=== PATIENT | male | born 1960 | race Caucasian/White ===

== ENCOUNTER → 2017-03-10 | Outpatient (CLI) | payer BC ==
[2017-03-10 09:53] LABS: HEMATOCRIT 44.8 % (42-52); MEAN CELL VOLUME 89.2 fL (80-100); MEAN CORPUSCULAR HEMOGLOBIN 30.9 pg (25-34); MEAN CORPUSCULAR HGB CONC 34.6 g/dl (32-36); MEAN PLATELET VOLUME 9.8 fL (7.4-10.4); PLATELET COUNT 249 K/uL (130-400); RED BLOOD COUNT 5.02 M/uL (4.7-6.1); WHITE BLOOD COUNT 7.41 K/uL (4.8-10.8)
[2017-03-10 10:20] LABS: ESTIMATED AVERAGE GLUCOSE 117 mg/dl; HA1C FLAG Normal (Normal)
[2017-03-10 10:21] LABS: ALT/SGPT 33 U/L (12-78); AST/SGOT 14 U/L (15-37); BLOOD UREA NITROGEN 19 mg/dl (7-18); CARBON DIOXIDE 26 mmol/L (21-32); CHLORIDE 105 mmol/L (98-107); CHOLESTEROL 232 mg/dl (0-200); GLUCOSE 115 mg/dl (70-99); SODIUM 138 mmol/L (136-145)
[2017-03-10 10:25] LABS: CHOLESTEROL/HDL RATIO 5.5; HDL CHOLESTEROL 42 mg/dl; LDL CHOLESTEROL CALCULATED 160 mg/dl; TRIGLYCERIDES 151 mg/dl (0-150); VERY LOW DENSITY LIPOPROT CALC 30 mg/dl
== END | disposition home or self-care (01) ==
LOC: C.LAB1850 09:06
PROVIDERS: ATTEND Internal Medicine
DX: E78.5 Hyperlipidemia, unspecified (principal); K21.9 Gastro-esophageal reflux disease without esophagitis

== ENCOUNTER → 2017-06-27 | Outpatient (CLI) | payer BC | END | disposition home or self-care (01) | LOC: C.LABPBG 11:15 | PROVIDERS: ATTEND Nurse Practitioner Adult Health | DX: N39.0 Urinary tract infection, site not specified (principal) ==

== ENCOUNTER → 2017-08-03 | Outpatient (CLI) | payer BC | END | disposition home or self-care (01) | LOC: C.LABPBG 15:32 | PROVIDERS: ATTEND Nurse Practitioner Adult Health | DX: N41.9 Inflammatory disease of prostate, unspecified (principal); N39.0 Urinary tract infection, site not specified ==

== ENCOUNTER → 2017-12-23 | Outpatient (CLI) | payer BC ==
[2017-12-23 12:57] LABS: AST/SGOT 16 U/L (15-37); BLOOD UREA NITROGEN 19 mg/dl (7-18); CALCIUM 9.1 mg/dl (8.5-10.1); CARBON DIOXIDE 27 mmol/L (21-32); CREATININE 1.21 mg/dl (0.60-1.40); GLUCOSE 120 mg/dl (70-99); POTASSIUM 4.2 mmol/L (3.5-5.1); SODIUM 137 mmol/L (136-145)
[2017-12-23 13:03] LABS: ALT/SGPT 31 U/L (12-78); CHOLESTEROL 228 mg/dl (0-200); LDL CHOLESTEROL CALCULATED 149 mg/dl
[2017-12-23 13:10] LABS: HEMOGLOBIN A1C 5.9 % (4.5-5.6)
== END | disposition home or self-care (01) ==
LOC: C.LABPBG 08:45
PROVIDERS: ATTEND Internal Medicine
DX: N40.1 Benign prostatic hyperplasia with lower urinary tract symptoms (principal); R73.9 Hyperglycemia, unspecified; E78.5 Hyperlipidemia, unspecified

== ENCOUNTER 2025-06-17 12:29 | Observation (INO) ==
--- NOTE | 2025-06-17 12:49 | Emergency Department Note ---
Impression & Plan Mass of pancreas, Metastatic cancer, Epigastric abdominal pain ED Provider Note NAME: MEGAN GUTIERREZ AGE: 64 SEX: M : 1960 ARRIVES VIA: Walk-In INFORMANT: Patient, ED PROVIDER(S): Joshua Restrepo DO CHIEF COMPLAINT: Back pain HPI: The patient is a 64-year-old male who presented to the emergency department directly from his primary care's office for an evaluation of back pain. The patient has been having pain for the last 5 weeks. He was seen in our facility recently. It was felt to be secondary to his Ozempic. He stopped the medication 5 weeks ago and thought that his symptoms were resolved by now. He notices middle back pain as well as gas bloating. He denies having any chest pain. He does note shortness of breath with exertion. He does take Xarelto which he takes at night. Is been compliant with his outpatient medications otherwise. He denies having any fever. ROS: See above HPI for pertinent positives & negatives. A total of 10 systems reviewed and were otherwise negative. PAST MEDICAL HISTORY: See Below PAST SURGICAL HISTORY: See Below FAMILY HISTORY: See Below SOCIAL HISTORY: See Below HOME MEDICATIONS: See Below ALLERGIES: See Below VITALS: See Below PHYSICAL EXAMINATION: GENERAL: Patient is awake alert in no acute distress patient is resting comfortably and showing no signs of anxiety EYES: The conjunctivae are clear. The pupils are round and reactive. EARS, NOSE, MOUTH AND THROAT: The nose is without any evidence of any deformity. Mucous membranes are moist. Tongue is midline. NECK: The neck is nontender and supple. RESPIRATORY: Normal respiratory effort is noted there is no evidence of wheezing rhonchi or rales CARDIOVASCULAR: Regular rate and rhythm noted there no murmurs rubs or gallops normal S1 normal S2. GASTROINTESTINAL: The abdomen was soft but mildly distended. There is diffuse tenderness to palpation but no guarding rigidity. BACK: Middle back tenderness was noted to palpation. Range of motion appears intact. There is no step-off. MUSCULOSKELETAL/EXTREMITIES: There is no evidence of gross deformity full range of motion is noted in the hips and shoulders. SKIN: There is no obvious evidence of any rash. There are no petechiae, pallor or cyanosis noted. NEUROLOGIC: Patient is awake alert and oriented x3 MEDICAL DECISION MAKING: The patient is a 64-year-old male who presented to the emergency department at the request of his primary care physician. The patient's been having abdominal pain over the course of the last 5 weeks. This was initially felt to be secondary to the patient's medications. The patient has been waiting for the medicines to clear his system. He was told this would take approximately 5 weeks. The patient went to see his family doctor today. He was told to go to the emergency department as they would be unable to do any testing today without getting precertification. I discussed the patient's laboratory and radiographic studies with him. He was found to have signs of a mass on his pancreas as well as possible metastatic disease. The patient was treated with pain medication in the emergency department. He was reevaluated multiple times. Given his findings I do not feel he would be a good candidate for outpatient management. For this reason I [facility] have agreed to evaluate the patient in the emergency department. Triage Nursing notes reviewed. Prior medical records reviewed Vital Signs: reviewed and remarkable for no significant abnormalities Differential diagnosis: Musculoskeletal, disc herniation, fracture, metastatic disease, cord compression, discitis, sciatica, cauda equina, infection, aortic disease, renal colic, gastrointestinal, as well as other pathologies. ER treatment provided: See below Diagnostics interpreted by me: ECG: EKG was obtained in the emergency department. My interpretation is normal sinus rhythm at 80 bpm. There is no ectopy. Nonspecific ST and T wave abnormalities are noted. This was compared to a tracing from May 13, 2025. No specific changes were noted. Cardiac Monitoring: An order was placed for continuous cardiac monitoring. The monitor shows a rate of 82 bpm with sinus rhythm. Laboratory studies: As stated above and show below. Imaging studies: See below. Radiographic imaging was reviewed by myself Consultation(s): I discussed this case with Sisi who [facility] Past Med/Surg History Problem List (Updated 06/17/25 @ 19:53 by Joshua Restrepo DO) Epigastric abdominal pain (Acute) Metastatic cancer (Acute) Mass of pancreas (Acute) Transaminitis Pancreatic mass Diabetes mellitus Anemia, mild Current use of proton pump inhibitor Morbid (severe) obesity due to excess calories Encounter for pre-operative examination BMI over 35 (Acute) Laryngopharyngeal reflux (Acute) Sleep apnea (Acute) Adjustment disorder Severe obstructive sleep apnea Nocturnal hypoxemia Atrial fibrillation Atrial fibrillation new onset since dx with covid 03/23/22 Benign prostatic hyperplasia with urinary obstruction (Acute) Hyperglycemia (Acute) "borderline" Hyperlipidemia (Acute) "borderline" Medical History History of cardioversion 06/17/[place], [place]; f/u dr ellison, [place]; 07[place], [place] GERD (gastroesophageal reflux disease) ADD (attention deficit disorder) Anxiety and depression History of COVID-19 03/23/22>home test *a-fib occured Sleep apnea cpap used Surgical History History of cardiac radiofrequency ablation 09/2022, [facility] [place]; f/u Dr. Castro, [facility] History of tooth extraction Hx of LASIK Hx of cholecystectomy H/O hernia repair Family History Brother History of kidney cancer Unknown Diabetes Hypertension Father Stroke Mother Stroke Other No family history of adverse response to anesthesia Denies family history of Colon cancer Ovarian cancer Prostate cancer Myocardial infarction Breast cancer Social History Smoking Status: Never smoker Second Hand Exposure: Yes (HX CHILD); Do You Dip or Chew Tobacco: No; Hx Alcohol Use: Yes Alcohol type: beer, wine and hard liquor Hx Substance Use: No Preferred Language: Georgian Communication Ability: Effective Visual Impairment: No Limitations Hearing Ability: Normal Cutter Brake Lining Required: No Beliefs That Will Affect Care: None marital status: Current Living Situation: Spouse current occupational status: employed 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 Feels Safe at Home: Yes Childhood Exposure to Second-Hand Smoke: Yes Dental Care, Regularly: Yes Physical Activity Frequency: 1-2 Times per Week Seatbelt Use: always Sunscreen Use: Yes Assistive Devices: CPAP and Glasses Allergies Allergies Allergy/AdvReac Type Severity Reaction Status Date / Time No Known Drug Allergies Allergy Verified 06/17/25 11:34 Home Meds Home Medications Medication Instructions Recorded Confirmed vit 2 tab PO QAM 02/27/21 06/17/25 [id number] 500 mg-50 mg-25 mg-40 mg tablet (Bioflex) Previous Rx's Medication Instructions Recorded escitalopram oxalate 10 mg tablet 10 mg PO QAM #90 tabs 09/04/24 finasteride 5 mg tablet 5 mg PO DAILY #90 tabs 09/05/24 metoprolol succinate 25 mg 25 mg PO QAM #90 tabs 09/05/24 tablet,extended release 24 hr rivaroxaban 20 mg tablet (Xarelto) 20 mg PO QPM #90 tabs 09/25/24 esomeprazole magnesium 20 mg 20 mg PO BID #180 caps 01/30/25 capsule,delayed release dronedarone 400 mg tablet (Multaq) 400 mg PO BID #180 tabs 03/18/25 famotidine 40 mg tablet 40 mg PO QAM #90 tabs 03/20/25 Results & Data (ED) Vital Signs Vital Signs - 24 hr 06/17/25 12:33 06/17/25 12:43 06/17/25 13:04 Temperature 36.7 C Temperature Source Temporal Artery Scan Pulse Rate 83 72 Pulse Rate [Apical] Respiratory Rate 22 16 Respiratory Effort / Characteristics Respiratory Depth Respiratory Pattern Blood Pressure 134/78 Blood Pressure [Right Arm] Blood Pressure Mean 96 Blood Pressure Mean [Right Arm] Pulse Oximetry 96 98 98 Oxygen Delivery Method Room Air Room Air Room Air Oxygen Flow Rate Sepsis Recent Fever Within 48 Hours No Sepsis New/Unexplained Change in Mental Status N/A Sepsis Action Taken by Nursing No Action Required Oxygen Flow Rate - Titration Pulse Oximetry Post Tiitration 06/17/25 13:13 06/17/25 13:57 06/17/25 14:47 Temperature Temperature Source Pulse Rate 70 Pulse Rate [Apical] 73 Respiratory Rate 18 Respiratory Effort / Characteristics Non-Labored Spontaneous Respiratory Depth Normal Respiratory Pattern Regular Blood Pressure Blood Pressure [Right Arm] 126/76 Blood Pressure Mean Blood Pressure Mean [Right Arm] 92 Pulse Oximetry 88 L 94 Oxygen Delivery Method Room Air Nasal Cannula Room Air Oxygen Flow Rate 0 Sepsis Recent Fever Within 48 Hours Sepsis New/Unexplained Change in Mental Status Sepsis Action Taken by Nursing Oxygen Flow Rate - Titration 2 Pulse Oximetry Post Tiitration 94 Home Medications Current Medication List: was personally reviewed by me Laboratory Data Attestation: I reviewed the patient's lab results. 06/17/25 12:58 06/17/25 12:58 Lab Results 09/29/25 09/29/25 Range/Units 12:58 13:02 WBC 11.00 H (4.8-10.8) K/ul RBC 4.40 L (4.70-6.10) M/uL Hgb 13.0 L (14.0-18.0) g/dl POC Hgb 13.9 L (14.0-18.0) g/dl Hct 37.8 L (42.0-52.0) % POC Hct 41 L (42-52) % MCV 85.9 (80.0-100.0) fL MCH 29.5 (25.0-34.0) pg MCHC 34.4 (32.0-36.0) g/dL RDW Std Deviation 43.5 (36.4-46.3) fL RDW Coeff of Cruzito 13.9 (11.5-14.5) % Plt Count 312 (130-400) K/uL MPV 10.6 (9.4-12.4) fL Immature Gran % (Auto) 0.3 % Neut % (Auto) 55.4 % Lymph % (Auto) 23.8 % [place] % (Auto) 14.1 % Eos % (Auto) 5.5 % Baso % (Auto) 0.9 % Neut # (Auto) 6.09 (1.40-6.50) K/uL Lymph # (Auto) 2.62 (1.20-3.40) K/uL Sol[place] # (Auto) 1.55 H (0.11-0.59) K/uL Eos # (Auto) 0.61 H (0.00-0.50) K/uL Baso # (Auto) 0.10 (0.00-0.20) K/uL Immature Gran # (Auto) 0.03 (0.01-0.20) K/uL PT 14.9 H (9.0-12.0) Seconds INR 1.4 H (0.9-1.1) APTT 31 (21-31) Seconds PTT Ratio 1.1 POC Sodium 131 L (135-144) mmol/L Sodium 129 L (136-145) mmol/L POC Potassium 3.5 (3.3-5.0) mmol/L Potassium 3.6 (3.5-5.1) mmol/L POC Chloride 93 L (101-112) mmol/L Chloride 93 L (98-107) mmol/L Carbon Dioxide 26 (21-32) mmol/L POC Total CO2 25 (24-31) mmol/L Anion Gap 10 (3-11) POC Anion Gap 17.0 (16-25) mmol/L POC BUN 6 L (7-18) mg/dl BUN 8 (6-23) mg/dl Creatinine 0.65 (0.6-1.4) mg/dl POC Creatinine 0.7 (0.6-1.3) mg/dl Est Cr Clr Drug Dosing 165.8 ml/min eGFR 104.57 BUN/Creatinine Ratio 12.3 (10-20) Glucose 284 H (70-99(Fasting)) mg/dl POC Glucose (other) 293 H (70-99) mg/dl Calcium 9.2 (8.6-10.3) mg/dl POC Ioniz Calcium Eduardo 1.09 L (1.12-1.32) mmol/l Total Bilirubin 3.0 H (0.2-1.0) mg/dl Direct Bilirubin 1.7 H (0-0.2) mg/dl AST 78 H (13-39) U/L ALT 113 H (7-52) U/L Alkaline Phosphatase 473 H (34-104) U/L Troponin I High Sens 22.9 H (0-20) pg/ml Total Protein 7.6 (6.0-8.3) gm/dl Albumin 3.2 L (3.4-5.0) gm/dl Globulin 4.4 H (2.5-4.0) gm/dl Albumin/Globulin Ratio 0.7 L (0.9-2) Lipase 17 (11-82) U/L Administered Medications Discontinued Medications Sodium Chloride (Nss) 500 mls @ 999 mls/hr IV .Q31M STA Stop: 06/17/25 13:13 Last Infusion: 06/17/25 13:47 Dose: Infused Documented By: Admin: 06/17/25 13:00 Dose: 999 mls/hr Documented By: GRETA Ioversol (Optiray 320 125ml) 118 ml IV ONCE ONE Stop: 06/17/25 14:27 Last Admin: 06/17/25 14:26 Dose: 118 ml Documented By: RAQUEL Morphine Sulfate (Morphine Sulfate 4 Mg/Ml 1 Ml Carp\\Vial) 4 mg IV Q15M PRN PRN Reason: Pain Stop: 07/01/25 12:42 Last Admin: 06/17/25 15:44 Dose: 4 mg Documented By: Admin: 06/17/25 13:20 Dose: 4 mg Documented By: GRETA Ondansetron HCl (Ondansetron Inj 2 Mg/Ml 2 Ml Vial) 4 mg IV NOW STA Stop: 06/17/25 12:44 Last Admin: 06/17/25 12:59 Dose: 4 mg Documented By: GRETA Imaging Data Attestation: I personally reviewed and interpreted this imaging study as follows: My Impression: CT of the abdomen and pelvis was obtained in the emergency department. My interpretation is no free air or definite bowel obstruction, final report below. Radiologist's Impression: Abdomen/Pelvis CT 06/17/25 12:43 CT angio chest PE protocol, CT abd pelvis IV con only CT DOSE: 2428.37 mGy.cm HISTORY: 64 years-old Male with PE. Acute short of breath with chest and abdominal pain TECHNIQUE: Multiple CTA images of the chest were obtained after the intravenous administration of 118 ml Optiray. Coronal and sagittal MIPS were obtained from the axial data set and were submitted for review. All measurements were obtained according to NASCET criteria. CT Abdomen and pelvis with IV contrast only also obtained. A dose lowering technique was utilized adhering to the principles of ALARA. COMPARISON: None. FINDINGS: CTA: No central pulmonary emboli are seen. Heart size is normal. Moderate coronary artery calcifications. No pulmonary emboli are seen. CT CHEST: Unremarkable thyroid. Subcentimeter mediastinal and right hilar lymph nodes. No pathologically enlarged lymph nodes are seen. Trace right pleural effusion. No pneumothorax. Irregular bilateral scattered solid pulmonary nodules measure up to approximately 2 cm from the right upper lobe. Several of the nodules are seen within a perifissural distribution. Central airways are patent. Pleural-based nodule the basal right lower lobe on image 60 measures 3.3 cm. Smaller subcentimeter pleural-based nodules are present bilaterally. A subcentimeter epicardial lymph node is seen on image 67. Unremarkable soft tissues. No acute fracture or destructive bone lesion is seen. CT ABDOMEN/PELVIS: No pneumatosis or pneumoperitoneum identified. Unremarkable spleen, and adrenal glands. Cholecystectomy. Scattered ill-defined hypodense liver lesions measuring up to 4.3 cm. Trace perihepatic fluid/hemorrhage on image 164 series 6 (likely secondary to one of the metastatic lesions demonstrating internal hemorrhage). Patent portal vein. Occlusion of the splenic vein. Periportal lymph nodes measure up to 1.3 cm. There is a large infiltrative ill-defined hypodense mass involving the pancreatic body on image 162 series 6 which measures 7.5 x 5.1 x 5.4 cm on image 162 series 6. This abuts the lesser curvature of the stomach and adjacent left hepatic lobe. There is also partial encasement of the splenic artery. This mass does not involve the superior mesenteric artery. No biliary ductal dilation to Unremarkable kidneys without hydronephrosis. Urinary bladder is within normal limits. Atherosclerosis of the aorta. No bowel obstruction or bowel wall thickening. Colonic diverticulosis without acute diverticulitis. No CT evidence of acute appendicitis. Unremarkable soft tissues. No acute fracture or destructive bone lesion identified. IMPRESSION: 1. 7.5 cm pancreatic mass suggestive of primary pancreatic adenocarcinoma with involvement of adjacent structures as above. 2. Metastatic disease of the chest and abdomen includes pulmonary, pleural, hepatic and lymphatic metastasis with trace likely malignant right-sided pleural effusion. 3. No pulmonary emboli. 4. No bowel obstruction or bowel wall thickening. 5. Colonic diverticulosis. ACT 112: Positive. There are findings on this exam that require communication between the performing entity and the patient following Patient Test Result Information Act ([place] Act 112) guidelines. The above report was generated using voice recognition software. It may contain grammatical, syntax or spelling errors. Electronically signed by: Angel Mcguire M.D. 06/17/2025 3:00 PM Chest X-Ray 06/17/25 12:43 XR chest 1V portable CLINICAL HISTORY: back pain COMPARISON STUDY: 05/13/2025 FINDINGS: Heart size and pulmonary vasculature are normal. No consolidation or pleural effusion. No pneumothorax. IMPRESSION: No acute findings. ACT 112: Negative or not required by law. Electronically signed by: Alex García M.D. 06/17/2025 1:11 PM Chest CTA 06/17/25 12:46 CT angio chest PE protocol, CT abd pelvis IV con only CT DOSE: 2428.37 mGy.cm HISTORY: 64 years-old Male with PE. Acute short of breath with chest and abdominal pain TECHNIQUE: Multiple CTA images of the chest were obtained after the intravenous administration of 118 ml Optiray. Coronal and sagittal MIPS were obtained from the axial data set and were submitted for review. All measurements were obtained according to NASCET criteria. CT Abdomen and pelvis with IV contrast only also obtained. A dose lowering technique was utilized adhering to the principles of ALARA. COMPARISON: None. FINDINGS: CTA: No central pulmonary emboli are seen. Heart size is normal. Moderate coronary artery calcifications. No pulmonary emboli are seen. CT CHEST: Unremarkable thyroid. Subcentimeter mediastinal and right hilar lymph nodes. No pathologically enlarged lymph nodes are seen. Trace right pleural effusion. No pneumothorax. Irregular bilateral scattered solid pulmonary nodules measure up to approximately 2 cm from the right upper lobe. Several of the nodules are seen within a perifissural distribution. Central airways are patent. Pleural-based nodule the basal right lower lobe on image 60 measures 3.3 cm. Smaller subcentimeter pleural-based nodules are present bilaterally. A subcentimeter epicardial lymph node is seen on image 67. Unremarkable soft tissues. No acute fracture or destructive bone lesion is seen. CT ABDOMEN/PELVIS: No pneumatosis or pneumoperitoneum identified. Unremarkable spleen, and adrenal glands. Cholecystectomy. Scattered ill-defined hypodense liver lesions measuring up to 4.3 cm. Trace perihepatic fluid/hemorrhage on image 164 series 6 (likely secondary to one of the metastatic lesions demonstrating internal hemorrhage). Patent portal vein. Occlusion of the splenic vein. Periportal lymph nodes measure up to 1.3 cm. There is a large infiltrative ill-defined hypodense mass involving the pancreatic body on image 162 series 6 which measures 7.5 x 5.1 x 5.4 cm on image 162 series 6. This abuts the lesser curvature of the stomach and adjacent left hepatic lobe. There is also partial encasement of the splenic artery. This mass does not involve the superior mesenteric artery. No biliary ductal dilation to Unremarkable kidneys without hydronephrosis. Urinary bladder is within normal limits. Atherosclerosis of the aorta. No bowel obstruction or bowel wall thickening. Colonic diverticulosis without acute diverticulitis. No CT evidence of acute appendicitis. Unremarkable soft tissues. No acute fracture or destructive bone lesion identified. IMPRESSION: 1. 7.5 cm pancreatic mass suggestive of primary pancreatic adenocarcinoma with involvement of adjacent structures as above. 2. Metastatic disease of the chest and abdomen includes pulmonary, pleural, hepatic and lymphatic metastasis with trace likely malignant right-sided pleural effusion. 3. No pulmonary emboli. 4. No bowel obstruction or bowel wall thickening. 5. Colonic diverticulosis. ACT 112: Positive. There are findings on this exam that require communication between the performing entity and the patient following Patient Test Result Information Act ([place] Act 112) guidelines. The above report was generated using voice recognition software. It may contain grammatical, syntax or spelling errors. Electronically signed by: Angel Mcguire M.D. 06/17/2025 3:00 PM Discharge Plan Visit Data Chief Complaint: Abdominal Pain Stated Complaint: OZEMPIC REACTION REACTION BACK PAIN ED Provider: Joshua Restrepo Discharge Problem: Mass of pancreas, Metastatic cancer, Epigastric abdominal pain Patient Disposition: Admitted As Inpatient Condition: Fair Discharge Instructions Interventions: ED Discharge Assessment Last Done: 06/17/25 18:06
[2025-06-17] MEDS: ONDANSETRON INJ 2 MG/ML 2 ML VIAL IV STA (12:59)
[2025-06-17] MEDS: SODIUM CHLORIDE 0.9% 500 ML IV STA (13:00)
--- NOTE | 2025-06-17 13:12 | XRay Report ---
XR chest 1V portable CLINICAL HISTORY: back pain COMPARISON STUDY: 05/13/2025 FINDINGS: Heart size and pulmonary vasculature are normal. No consolidation or pleural effusion. No p neumothorax. IMPRESSION: No acute findings. ACT 112: Negative or not required by law. Electronically signed by: Alex García M.D. 06/17/2025 1:11 PM
[2025-06-17] MEDS: MoRPHine SULFATE 4 MG/ML 1 ML CARP\\VIAL IV PRN ×2 (13:20→20:11)
[2025-06-17 13:32] LABS: Hematocrit (blood only) 37.8 % (42.0-52.0); Hemoglobin 13.0 g/dl (14.0-18.0); Immature Granulocytes # (auto) 0.03 K/uL (0.01-0.20); Immature Granulocytes % (auto) 0.3 %; Mean Corpuscular Hemoglobin 29.5 pg (25.0-34.0); Mean Corpuscular Volume 85.9 fL (80.0-100.0); Platelet Count 312 K/uL (130-400); RDW Standard Deviation 43.5 fL (36.4-46.3); Red Blood Count 4.40 M/uL (4.70-6.10); White Blood Count 11.00 K/ul (4.8-10.8)
[2025-06-17 13:33] LABS: Alanine Aminotransferase 113.0 U/L (7-52); Albumin Globulin Ratio 0.7 (0.9-2); Albumin Level 3.2 gm/dl (3.4-5.0); Alkaline Phosphatase 473.0 U/L (34-104); Anion Gap 10.0 (3-11); Bilirubin,Total 3.0 mg/dl (0.2-1.0); Blood Urea Nitrogen 8.0 mg/dl (6-23); Calcium 9.2 mg/dl (8.6-10.3); Carbon Dioxide 26.0 mmol/L (21-32); Chloride 93.0 mmol/L (98-107); Creatinine Clr Calc Pharmacy 165.8 ml/min; Globulin 4.4 gm/dl (2.5-4.0); Glucose 284.0 mg/dl (70-99(Fasting)); Lipase 17.0 U/L (11-82); Potassium 3.6 mmol/L (3.5-5.1); Sodium 129.0 mmol/L (136-145); Total Protein 7.6 gm/dl (6.0-8.3)
[2025-06-17 13:42] LABS: INR 1.4 (0.9-1.1); Partial Thromboplastin Time 31 Seconds (21-31); Prothrombin Time 14.9 Seconds (9.0-12.0)
[2025-06-17] MEDS: OPTIRAY 320 125ml IV ONE (14:26)
--- NOTE | 2025-06-17 15:01 | CT Scan Report ---
CT angio chest PE protocol, CT abd pelvis IV con only CT DOSE: 2428.37 mGy.cm HISTORY: 64 years-old Male with PE. Acute short of breath with chest and abdominal pain TECHNIQUE: Multiple CTA images of the chest were obtained after the intravenous administration of 118 ml Optiray. Coronal and sagittal MIPS were obtained from the axial data set and were submitted for review. All measurements were obtained according to NASCET criteria. CT Abdomen and pelvis with IV c ontrast only also obtained. A dose lowering technique was utilized adhering to the principles of POLA Grissom. COMPARISON: None. FINDINGS: CTA: No central pulmonary emboli are seen. Heart size is normal. Moderate coronary artery calcifications. No pulmonary emboli are seen. CT CHEST: Unremarkable thyroid. Subcentimeter mediastinal and right hilar lymph nodes. No pathologically enlarg ed lymph nodes are seen. Trace right pleural effusion. No pneumothorax. Irregular bilateral scattered solid pulmonary nodules measure up to approximately 2 cm from the right upper lobe. Several of the n odules are seen within a perifissural distribution. Central airways are patent. Pleural-based nodule the basal right lower lobe on image 60 measures 3.3 cm. Smaller subcentimeter pleural-based nodules a re present bilaterally. A subcentimeter epicardial lymph node is seen on image 67. Unremarkable soft tissues. No acute fracture or destructive bone lesion is seen. CT ABDOMEN/PELVIS: No pneumatosis or pneumoperitoneum identified. Unremarkable spleen, and adrenal glands. Cholecystecto my. Scattered ill-defined hypodense liver lesions measuring up to 4.3 cm. Trace perihepatic fluid/hem orrhage on image 164 series 6 (likely secondary to one of the metastatic lesions demonstrating human resource internship al hemorrhage). Patent portal vein. Occlusion of the splenic vein. Periportal lymph nodes measure up to 1.3 cm. There is a large infiltrative ill-defined hypodense mass involving the pancreatic body on image 162 series 6 which measures 7.5 x 5.1 x 5.4 cm on image 162 series 6. This abuts the lesser cur vature of the stomach and adjacent left hepatic lobe. There is also partial encasement of the splenic artery. This mass does not involve the superior mesenteric artery. No biliary ductal dilation to Unremarkable kidneys without hydronephrosis. Urinary bladder is within normal limits. Atherosclerosis of the aorta. No bowel obstruction or bowel wall thickening. Colonic diverticulosis without acute di verticulitis. No CT evidence of acute appendicitis. Unremarkable soft tissues. No acute fracture or d estructive bone lesion identified. IMPRESSION: 1. 7.5 cm pancreatic mass suggestive of primary pancreatic adenocarcinoma with involvement of adjacen t structures as above. 2. Metastatic disease of the chest and abdomen includes pulmonary, pleural, hepatic and lymphatic met astasis with trace likely malignant right-sided pleural effusion. 3. No pulmonary emboli. 4. No bowel obstruction or bowel wall thickening. 5. Colonic diverticulosis. ACT 112: Positive. There are findings on this exam that require communication between the performing entity and the patient following Patient Test Result Information Act ([place] Act 112) guidelines. The above report was generated using voice recognition software. It may contain grammatical, syntax o r spelling errors. Electronically signed by: Angel Mcguire M.D. 06/17/2025 3:00 PM
[2025-06-17] MEDS ORDERED: MoRPHine SULFATE 2 MG/ML CARP IV PRN (16:02)
--- NOTE | 2025-06-17 16:09 | History & Physical Report ---
Date of Service June 17, 2025 Assessment & Plan (1) Pancreatic mass: (2) Transaminitis: (3) GERD (gastroesophageal reflux disease): (4) Atrial fibrillation: Plan This is a 64 year old gentleman with past medical history of A fib, BPH, mild anemia, DM who presented to the ED recommended by his PCP on 06/17/2025 for back pain. While in the ED he underwent a chest CTA and CTAP that was concerning for a 7.5cm pancreatic mass suggestive of primary adenocarcinoma w/ metastatic disease including pulmonary, plerual, hepatic, and lymphatic mets w/ trace likely malignant right-sided pleural effusion. No PE. CXR was negative. CBC w/ WBC mildly elevated at 11, hgb mildly low at 13. INR elevated at 1.4. CMP w/ Na of 129, TB 3.0, DB 1.7, AST/ALT 78/113, AP 473. Trop mildly elevated at 22.9. APAP level pending. #Pancreatic Mass CTAP/Chest CTA w/ 7.3cm pancreatic mass suggestive of primary adenocarcinoma w/ metastatic disease including pulmonary, pleural, hepatic & lymphatic mets w/ trace likely malignant right sided pleural effusion. CBC w/ mild leukocytosis of 11, will trend. Hgb mildly low at 13. Per chart review does have hx of mild anemia, will monitor. Transaminitis secondary to mass - TB 3.0, DB 1.7, AST/ALT 78/113; AP 473 (previously LFTs 04/2025 did appear normal aside from a slightly elevated AP at 126) Discussed w/ IR via tiger text that bx of Liver can be performed here but will require 3 day Xarelto hold. Last dose was 06/16 PM. Earliest biopsy can be done: 05/22. Pain control w/ Morphine 2mg vs 4mg dependent upon pain scale. APAP level checked given he was taking a large amount at home - await levels. Oncology consulted, appreciate recommendations. Zofran prn for N/V. #Constipation w/ irregular BM's since starting Ozempic. Hypoactive BS on examination. Start Miralax once daily in AM, can increase as needed. #Hyponatremia Na low at 129 at time of admission. Provide gentle fluid rehydration Recheck in AM - suspect secondary to poor PO intake. #Elevated troponin Mildly elevated at 22.9, likely secondary from demand of panc mass Repeat pending EKG w/o signs of ischemia; endorses no CP. #A fib - Continue on Metoprolol & Dronedarone, follows outpatient w/ cards. HOLD Xarelto for upcoming liver biopsy #GERD - Continue PPI + Pepcid #BPH - Continue Finasteride DVT prophylaxis: hold in setting of upcoming bx Code: full Case discussed w/ Dr. Landers at time of encounter. History of Present Illness Primary Care Provider: Joshua Espino MD This is a 64 year old gentleman with past medical history of A fib, BPH, mild anemia, DM who presented to the ED recommended by his PCP on 06/17/2025 for back pain. Sal was seen & examined this afternoon. He reports that he has been having ongoing back pain for months but has also developed abdominal bloat ing/distention, n/v, and decreased appetite. His GI symptoms began after starting Ozempic but did not resolve when stopping the medication. He reports he has been off the medication for a few weeks now with no relief. He reports little sleep at night secondary to his GI symptoms + back pain. He went to his PCP today who referred him to the ED for further care. He reports shortness of breath with activity which is a newer symptom for him. He denies any CP. Denies any lower extremity edema. He states he has been defecating up to 25 times a day because every time he feels he passes gas he will pass some stool. He reports occasionally he will have diarrhea and other times he will have stools like a type 1 on the bristol stool chart. He reports feeling nauseous and has vomited a few times. He reports that last August his weight was in the 380s. When starting Ozempic it was in the 340s and is now down to about 307. He denies any fevers or chills. He does report that he has been using Tylenol for pain. He states he has been using 2 extra strength tablets every 4-6 hours to help with pain but it is not effective. He did report the morphine did help his pain at time of presentation. While in the ED he underwent a chest CTA and CTAP that was concerning for a 7.5cm pancreatic mass suggestive of primary adenocarcinoma w/ metastatic disease including pulmonary, plerual, hepatic, and lymphatic mets w/ trace likely malignant right-sided pleural effusion. No PE. CXR was negative. CBC w/ WBC mildly elevated at 11, hgb mildly low at 13. INR elevated at 1.4. CMP w/ Na of 129, TB 3.0, DB 1.7, AST/ALT 78/113, AP 473. Trop mildly elevated at 22.9. APAP level pending. Code discussion did take place with the patient & he wishes to stay a full code until he has a conversation with his . Allergies Allergy/AdvReac Type Severity Reaction Status Date / Time No Known Drug Allergies Allergy Verified 06/17/25 11:34 Home Medications Medication Instructions Recorded Confirmed Type vit 2 tab PO QAM 02/27/21 06/17/25 History [id number] 500 mg-50 mg-25 mg-40 mg tablet (Bioflex) escitalopram oxalate 10 mg tablet 10 mg PO QAM #90 tabs 09/04/24 06/17/25 Rx finasteride 5 mg tablet 5 mg PO DAILY #90 tabs 09/05/24 06/17/25 Rx metoprolol succinate 25 mg 25 mg PO QAM #90 tabs 09/05/24 06/17/25 Rx tablet,extended release 24 hr rivaroxaban 20 mg tablet (Xarelto) 20 mg PO QPM #90 tabs 09/25/24 06/17/25 Rx esomeprazole magnesium 20 mg 20 mg PO BID #180 caps 01/30/25 06/17/25 Rx capsule,delayed release dronedarone 400 mg tablet (Multaq) 400 mg PO BID #180 tabs 03/18/25 06/17/25 Rx famotidine 40 mg tablet 40 mg PO QAM #90 tabs 03/20/25 06/17/25 Rx fentanyl 25 mcg/hr transdermal 1 patch transdermal Q3D #5 ea 06/25/25 Rx patch oxycodone 5 mg tablet 5 mg PO Q6H PRN pain #45 tabs 06/25/25 Rx polyethylene glycol 3350 17 gram 17 g PO BID #30 ea 06/25/25 Rx oral powder packet (Miralax) sennosides 8.6 mg tablet (Senna 8.6 mg PO HS #30 tabs 06/25/25 Rx Lax) Past Med/Surg History Problem List Counseling regarding advanced directives and goals of care Palliative care by specialist Cancer-related breakthrough pain Cancer related pain Epigastric abdominal pain (Acute) Metastatic cancer (Acute) Transaminitis Pancreatic mass Diabetes mellitus Anemia, mild Current use of proton pump inhibitor Encounter for pre-operative examination BMI over 35 (Acute) Laryngopharyngeal reflux (Acute) Adjustment disorder Severe obstructive sleep apnea Nocturnal hypoxemia Atrial fibrillation new onset since dx with covid 03/23/22 Benign prostatic hyperplasia with urinary obstruction (Acute) Hyperglycemia (Acute) "borderline" Hyperlipidemia (Acute) "borderline" Medical History Atrial fibrillation Sleep apnea Morbid (severe) obesity due to excess calories Mass of pancreas History of cardioversion 06/17/22, or; f/u dr ellison, or; 07/2022, or GERD (gastroesophageal reflux disease) ADD (attention deficit disorder) Anxiety and depression History of COVID-19 03/23/22>home test *a-fib occured Sleep apnea cpap used Surgical History History of cardiac radiofrequency ablation 09/2022, [facility] [place]; f/u Dr. Castro, [place] History of tooth extraction Hx of LASIK Hx of cholecystectomy H/O hernia repair Family History Brother History of kidney cancer Unknown Diabetes Hypertension Father Stroke Mother Stroke Other No family history of adverse response to anesthesia Denies family history of Colon cancer Ovarian cancer Prostate cancer Myocardial infarction Breast cancer Social History Smoking Status: Never smoker Second Hand Exposure: Yes (HX CHILD); Do You Dip or Chew Tobacco: No; Hx Alcohol Use: Yes Alcohol type: hard liquor Hx Substance Use: No Preferred Language: Latvian Communication Ability: Effective Visual Impairment: No Limitations Hearing Ability: Normal Mold Chipper Required: No Beliefs That Will Affect Care: Nondenominational Nondenominational Beliefs: nixon hickey marital status: Current Living Situation: Spouse 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 Tenderness to palpation in upper abdominal quadrants. Extremities: no edema Neuro: A&O x3 Skin: intact, no lesions noted, mild jaundice. Results & Data Results & Data Vital Signs (Past 12 Hours) Vital Signs Temp Pulse Pulse Resp BP BP Pulse Ox 06/17/25 14:47 73 18 126/76 94 06/17/25 13:57 88 L 06/17/25 13:13 70 06/17/25 13:04 98 06/17/25 12:43 72 16 98 06/17/25 12:33 36.7 C 83 22 134/78 96 O2 Del Method O2 Flow Rate 06/17/25 14:47 Room Air 06/17/25 13:57 Room Air, Nasal Cannula 0 06/17/25 13:13 06/17/25 13:04 Room Air 06/17/25 12:43 Room Air 06/17/25 12:33 Room Air Supervising Physician Co-Signing Physician Notes Attending Attestation & Admission Note: Pt seen/examined, chart reviewed, admit care plan d/w PASCUAL Ambriz. I agree w/ the medellin components of her admission documentation. 64yo male with history of paroxysmal A fib, BPH, anemia, T2DM, obesity. Presented to the ED upon recommendation by his PCP for worsening/intractable back pain for several months, multiple GI symptoms (bloating, nausea, vomiting, poor appetite, fluctuating bowel habits), as well as weight loss. Patient thought his symptoms were due to use of Ozempic however his symptoms persisted even after discontinuation of the medicine. In the ER he underwent mustafa-CT scans showing a large pancreatic mass as well as presumed metastatic disease to numerous locations (lungs, liver, lymph nodes, etc). PMH/PSH/allergies/meds/sochx - reviewed VSS, afebrile gen - lying in bed, pleasant, more comfortable following recent pain medicines; obese neck - no JVD heart - RRR, s1 s2, no murmur lungs - CTA b/l abd - mildly tender RUQ/epigastric region, BS+, no HSM ext - no edema, pulses 2+ b/l labs reviewed imaging reviewed EKG with NSR A/P: 1. intractable back pain of several months duration - likely due to pancreatic mass with extensive metastatic disease 2. pancreatic mass - very likely advanced pancreatic ca with mets 3. various GI symptoms - due to the pancreatic mass/presumed pancreatic ca 4. weight loss due to #2 5. T2DM - last a1c 6.9% in February 2025 6. PAF on Xarelto 7. abnormal LFTs - 2nd to #2 -patient will need tissue biopsy for definitive diagnosis -most readily accessible lesion may be one of the liver mets -could be done via IR -will have to hold Xarelto, however, minimum of 3 days -while awaiting Xarelto to wash out will focus on pain control -start with IV pain meds prn, but suspect he will need a long-acting pain med such as fentanyl patch, MS-contin, etc due to the severity of his pain -will need heme/onc consult, IR consult, +/- palliative care consultation to discuss goals of care in setting of presumed stage 4 pancreatic ca Saul Landers MD PG Care Time/CCT Total # of Minutes Spent Total Time Spent with Patient: Total time spent is greater than 50% in coordination of care (as documented) at patient's floor/unit and/or counseling patient: Coding Level of Care Code 95756 INT INP/OBS CARE 3/75MIN Diagnoses Pancreatic mass K86.89 Transaminitis R74.01 GERD (gastroesophageal reflux disease) K21.9 Atrial fibrillation I48.91
--- NOTE | 2025-06-17 16:52 | Electrocardiogram Report ---
Test Reason : Blood Pressure : */* mmHG Vent. Rate : 80 BPM Atrial Rate : 80 BPM P-R Int : 190 ms QRS Dur : 76 ms QT Int : 370 ms P-R-T Axes : -29 -11 176 degrees QTcB Int : 426 ms Normal sinus rhythm possible Inferior infarct , age undetermined Abnormal ECG When compared with ECG of 13-May-2025 12:50, Inverted T waves have replaced nonspecific T wave abnormality in Lateral leads Confirmed by Floyd Rosenthal ([id number] on 06/17/2025 4:52:22 PM Referred By: Joshua Espino Confirmed By: Floyd Rosenthal
[2025-06-17] MEDS: LACTATED RINGER'S 1,000 ML IV SCH (20:11)
[2025-06-17] MEDS: DRONEDARONE HCL 400 MG TAB PO SCH (20:38)
[2025-06-18 06:12] LABS: Appearance Urine Clear (Clear); Bacteria Urine Automated None Seen (None Seen); Glucose Urine UA Negative (Negative); WBC Urine Automated 0-5 /hpf (0-5)
--- NOTE | 2025-06-18 08:11 | Oncology Consultation ---
Date of Consultation June 18, 2025 Assessment & Plan (1) Mass of pancreas: Plan -Agree with IR guided liver biopsy as soon as possible. Explained to patient that if biopsy confirms metastatic pancreatic cancer, goals of treatment would be to prolong life and improve symptoms. Options include supportive care/hospice, systemic therapy with FOLFIRINOX or NALIRIFOX or gemcitabine/Abraxane. Immunotherapy may be an option if he is mismatch repair deficient. Could also explore option of clinical trial at tertiary center. Will however await biopsy results. -Patient's brother also had pancreatic cancer, so could have germline mutation and so would recommend genetic testing which can be obtained outpatient. -CA 19-9 ordered. History of Present Illness Reason for Consultation: Pancreatic mass with metastasis Attending Physician: Saul Landers MD History of Present Illness Mr. Chand is a 64-year-old gentleman with medical history significant for atrial fibrillation and diabetes who was admitted to with back pain. CT chest, abdomen and pelvis on 06/17/2025 showed 7.5 cm pancreatic mass suggestive of primary pancreatic adenocarcinoma, metastatic disease of the chest and abdomen including pulmonary, pleural, hepatic and lymphatic metastasis with trace likely malignant right-sided pleural effusion.Plan is for IR guided liver biopsy after patient has been off Eliquis for 72 hours. He states that symptoms started several weeks ago and was initially attributed t o Ozempic. Allergies Allergy/AdvReac Type Severity Reaction Status Date / Time No Known Drug Allergies Allergy Verified 06/17/25 11:34 Home Medications Medication Instructions Recorded Confirmed Type vit 2 tab PO QAM 02/27/21 06/17/25 History Q-yoxddec-[id number] 500 mg-50 mg-25 mg-40 mg tablet (Bioflex) escitalopram oxalate 10 mg tablet 10 mg PO QAM #90 tabs 09/04/24 06/17/25 Rx finasteride 5 mg tablet 5 mg PO DAILY #90 tabs 09/05/24 06/17/25 Rx metoprolol succinate 25 mg 25 mg PO QAM #90 tabs 09/05/24 06/17/25 Rx tablet,extended release 24 hr rivaroxaban 20 mg tablet (Xarelto) 20 mg PO QPM #90 tabs 09/25/24 06/17/25 Rx esomeprazole magnesium 20 mg 20 mg PO BID #180 caps 01/30/25 06/17/25 Rx capsule,delayed release dronedarone 400 mg tablet (Multaq) 400 mg PO BID #180 tabs 03/18/25 06/17/25 Rx famotidine 40 mg tablet 40 mg PO QAM #90 tabs 03/20/25 06/17/25 Rx Patient History Medical History History of cardioversion 06/17/[place], [place]; f/u dr ellison, [place]; 07/[place], [place] GERD (gastroesophageal reflux disease) ADD (attention deficit disorder) Anxiety and depression History of COVID-19 03/23/22>home test *a-fib occured Sleep apnea cpap used Surgical History History of cardiac radiofrequency ablation 09/2022, [facility] [place]; f/u Dr. Castro, [facility] History of tooth extraction Hx of LASIK Hx of cholecystectomy H/O hernia repair Family History Brother History of kidney cancer Unknown Diabetes Hypertension Father Stroke Mother Stroke Other No family history of adverse response to anesthesia Denies family history of Colon cancer Ovarian cancer Prostate cancer Myocardial infarction Breast cancer Social History Smoking Status: Never smoker Second Hand Exposure: Yes (HX CHILD); Do You Dip or Chew Tobacco: No; Hx Alcohol Use: Yes Alcohol type: hard liquor Hx Substance Use: No Preferred Language: Hebrew Communication Ability: Effective Visual Impairment: No Limitations Hearing Ability: Normal Drama Teacher Required: No Beliefs That Will Affect Care: None marital status: Current Living Situation: Spouse 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
[2025-06-18 08:47] LABS: Hematocrit (blood only) 38.1 % (42.0-52.0); Hemoglobin 12.7 g/dl (14.0-18.0); Immature Granulocytes # (auto) 0.05 K/uL (0.01-0.20); Immature Granulocytes % (auto) 0.5 %; Mean Corpuscular Hemoglobin 29.6 pg (25.0-34.0); Mean Corpuscular Volume 88.8 fL (80.0-100.0); Platelet Count 274 K/uL (130-400); RDW Standard Deviation 45.9 fL (36.4-46.3); Red Blood Count 4.29 M/uL (4.70-6.10); White Blood Count 10.87 K/ul (4.8-10.8)
[2025-06-18] MEDS: FAMOTIDINE 40 MG TABLET PO SCH (09:00)
[2025-06-18] MEDS: METOPROLOL SUCC 25MG EXT REL TAB PO SCH (09:00)
[2025-06-18] MEDS: FINASTERIDE 5 MG TAB PO SCH (09:00)
[2025-06-18] MEDS: POLYETHYLENE (MIRALAX) 17 GM PACK PO SCH (09:00)
[2025-06-18] MEDS: ESCITALOPRAM OXALATE 10 MG TAB PO SCH (09:00)
[2025-06-18 09:02] LABS: Alanine Aminotransferase 103.0 U/L (7-52); Albumin Globulin Ratio 0.7 (0.9-2); Albumin Level 3.0 gm/dl (3.4-5.0); Alkaline Phosphatase 497.0 U/L (34-104); Anion Gap 8.0 (3-11); Bilirubin,Total 3.0 mg/dl (0.2-1.0); Blood Urea Nitrogen 12.0 mg/dl (6-23); Calcium 9.0 mg/dl (8.6-10.3); Carbon Dioxide 28.0 mmol/L (21-32); Chloride 94.0 mmol/L (98-107); Creatinine Clr Calc Pharmacy 158.8 ml/min; Globulin 4.2 gm/dl (2.5-4.0); Glucose 225.0 mg/dl (70-99(Fasting)); Magnesium 2.0 mg/dl (1.7-2.4); Potassium 4.0 mmol/L (3.5-5.1); Sodium 130.0 mmol/L (136-145); Total Protein 7.2 gm/dl (6.0-8.3)
--- NOTE | 2025-06-18 11:29 | Hospitalist Progress Note ---
Date of Service June 18, 2025 Assessment & Plan (1) Pancreatic mass: (2) Transaminitis: (3) GERD (gastroesophageal reflux disease): (4) Atrial fibrillation: Plan This is a 64 year old gentleman with past medical history of A fib, BPH, mild anemia, DM who presented to the ED recommended by his PCP on 06/17/2025 for back pain. While in the ED he underwent a chest CTA and CTAP that was concerning for a 7.5cm pancreatic mass suggestive of primary adenocarcinoma w/ metastatic disease including pulmonary, plerual, hepatic, and lymphatic mets w/ trace likely malignant right-sided pleural effusion. No PE. CXR was negative. CBC w/ WBC mildly elevated at 11, hgb mildly low at 13. INR elevated at 1.4. CMP w/ Na of 129, TB 3.0, DB 1.7, AST/ALT 78/113, AP 473. Trop mildly elevated at 22.9. APAP level pending. #Pancreatic Mass CTAP/Chest CTA w/ 7.3cm pancreatic mass suggestive of primary adenocarcinoma w/ metastatic disease including pulmonary, pleural, hepatic & lymphatic mets w/ trace likely malignant right sided pleural effusion. CBC w/ mild leukocytosis downtrending of 10.87, will trend. Hgb mildly low at 12.7. Per chart review does have hx of mild anemia, will monitor. Transaminitis secondary to mass - TB 3.0, DB 1.7, AST/ALT 84/103; AP 497- continue to trend. APAP level <3 Discussed w/ IR via tiger text that bx of Liver can be performed here but will require 3 day Xarelto hold. Last dose was 06/16 PM. Earliest biopsy can be done: 06/20. Pain control w/ Morphine 4mg IV --> plan to transition to Fentanyl patch for pain control in AM Of 06/19 Oncology consulted, appreciate recommendations. Zofran prn for N/V. #Constipation w/ irregular BM's since starting Ozempic. Hypoactive BS on examination. Start Miralax once daily in AM, can increase as needed. #Hyponatremia Na low at 129 at time of admission. Provide gentle fluid rehydration Improving to 130 #Elevated troponin, Demand Ischemia. Mildly elevated at 22.9 w/ repeat at 21.2 secondary from demand of panc mass EKG w/o signs of ischemia; endorses no CP. #A fib - Continue on Metoprolol & Dronedarone, follows outpatient w/ cards. HOLD Xarelto for upcoming liver biopsy #GERD - Continue PPI + Pepcid #BPH - Continue Finasteride #Morbid obesity with BMI 40.5 DVT prophylaxis: hold in setting of upcoming bx Code: full Admission and Anticipated Discharge Date Admission Date: June 17, 2025 Supervising Physician Co-Signing Physician Notes Attending Attestation: Chart reviewed, care plan d/w PASCUAL Ambriz. I agree w/ the medellin components of her documentation. Saul Huang was seen & examined this morning with a friend at bedside. He reports that the pain is much more manageable with the morphine. He states that he was able to sleep last night. States his appetite has improved as well. He denies any nausea or vomiting. Physical Exam Physical Exam: General: NAD, VS: BP 108/70; P59; R16; T36.6C Resp: normal respiratory effort Extremities: no edema Neuro: A&O x3 Skin: intact, no lesions noted Results & Data Results & Data Vital Signs (Past 12 Hours) Vital Signs Temp Pulse Resp BP Pulse Ox O2 Del Method O2 Flow Rate 06/18/25 07:05 36.9 C 80 16 102/66 93 Nasal Cannula 2 PG Care Time/CCT Total # of Minutes Spent Total Time Spent with Patient: Total time spent is greater than 50% in coordination of care (as documented) at patient's floor/unit and/or counseling patient: Coding Level of Care Code 68641 SUB INP/OBS CARE 2/35MIN Diagnoses Pancreatic mass K86.89 Transaminitis R74.01 GERD (gastroesophageal reflux disease) K21.9 Atrial fibrillation I48.91
[2025-06-18] MEDS: LORazepam 0.5 MG TAB PO STA (23:50)
[2025-06-19 07:39] LABS: Hematocrit (blood only) 35.8 % (42.0-52.0); Hemoglobin 12.2 g/dl (14.0-18.0); Mean Corpuscular Hemoglobin 30.4 pg (25.0-34.0); Mean Corpuscular Volume 89.3 fL (80.0-100.0); Platelet Count 250 K/uL (130-400); RDW Standard Deviation 46.7 fL (36.4-46.3); Red Blood Count 4.01 M/uL (4.70-6.10); White Blood Count 10.63 K/ul (4.8-10.8)
[2025-06-19 07:59] LABS: Alanine Aminotransferase 105.0 U/L (7-52); Albumin Globulin Ratio 0.7 (0.9-2); Albumin Level 2.9 gm/dl (3.4-5.0); Alkaline Phosphatase 534.0 U/L (34-104); Anion Gap 6.0 (3-11); Bilirubin,Total 3.0 mg/dl (0.2-1.0); Blood Urea Nitrogen 18.0 mg/dl (6-23); Calcium 8.8 mg/dl (8.6-10.3); Carbon Dioxide 31.0 mmol/L (21-32); Chloride 92.0 mmol/L (98-107); Creatinine Clr Calc Pharmacy 111.3 ml/min; Globulin 4.3 gm/dl (2.5-4.0); Glucose 246.0 mg/dl (70-99(Fasting)); Potassium 4.3 mmol/L (3.5-5.1); Sodium 129.0 mmol/L (136-145); Total Protein 7.2 gm/dl (6.0-8.3)
[2025-06-19] MEDS: LORazepam 0.5 MG TAB PO ONE (11:31)
--- NOTE | 2025-06-19 12:21 | Hospitalist Progress Note ---
Date of Service June 19, 2025 Assessment & Plan (1) Pancreatic mass: (2) Transaminitis: (3) GERD (gastroesophageal reflux disease): (4) Atrial fibrillation: Plan This is a 64 year old gentleman with past medical history of A fib, BPH, mild anemia, DM who presented to the ED recommended by his PCP on 06/17/2025 for back pain. While in the ED he underwent a chest CTA and CTAP that was concerning for a 7.5cm pancreatic mass suggestive of primary adenocarcinoma w/ metastatic disease including pulmonary, plerual, hepatic, and lymphatic mets w/ trace likely malignant right-sided pleural effusion. No PE. CXR was negative. CBC w/ WBC mildly elevated at 11, hgb mildly low at 13. INR elevated at 1.4. CMP w/ Na of 129, TB 3.0, DB 1.7, AST/ALT 78/113, AP 473. Trop mildly elevated at 22.9. APAP level pending. #Pancreatic Mass CTAP/Chest CTA w/ 7.3cm pancreatic mass suggestive of primary adenocarcinoma w/ metastatic disease including pulmonary, pleural, hepatic & lymphatic mets w/ trace likely malignant right sided pleural effusion. MRI/MRCP: limited as unable to tolerate much of exam - primary pancreatic malignancy w/ extensive metastatic disease re-demonstrated. s/p choley, no ductal dilatation. CBC w/resolution of leukocytosis. Hgb mildly low at 12.2. Per chart review does have hx of mild anemia, will monitor. Transaminitis secondary to mass - TB 3.0, DB 1.7, AST/ALT 100/105; AP 534- continue to trend. APAP level <3 Discussed w/ IR via tiger text that bx of Liver can be performed here but will require 3 day Xarelto hold. Discussed w/ IR 06/19, hopeful for liver bx tomorrow, 06/20. NPO after midnight. Fentanyl 12mcg patch started 06/19, use Morphine 2mg IV prn q 3h for breakthrough pain for 1st 24 hours patch is on. adjust as needed. If unable to control pain adequately, can consider palliative care consult. Zofran prn for N/V. Oncology consulted--> CA 19-9 pending; tx options following bx include hospice vs systemic therapy vs possible immunotherapy. #Constipation w/ irregular BM's since starting Ozempic. Hypoactive BS on examination. Start Miralax once daily in AM, - no BM thus far, add Senna HS #Hyponatremia Na low at 129 at time of admission, stable at 129 Urine osmol + urine Na ordered. #Elevated troponin, Demand Ischemia. - resolved. Mildly elevated at 22.9 w/ repeat at 21.2 secondary from demand of panc mass EKG w/o signs of ischemia; endorses no CP. #A fib - Continue on Metoprolol & Dronedarone, follows outpatient w/ cards. HOLD Xarelto for upcoming liver biopsy #GERD - Continue PPI + Pepcid #BPH - Continue Finasteride #Morbid obesity with BMI 40.5 DVT prophylaxis: hold in setting of upcoming bx Code: full updated at bedside 06/19 Admission and Anticipated Discharge Date Admission Date: June 17, 2025 Subjective Sal was seen & examined this afternoon w/ his at bedside. Reports he was unable to tolerate the MRI earlier today secondary to pain. He was tolerating tameka nch well. States he did have issues w/ sleep last night & was given Ativan which helped his symptoms. Aside from pain, he denies any additional complaints. Reports morphine has been controlling the pain to make it bearable. Physical Exam Physical Exam: General: NAD, VS: BP 119/73; P71; R18; T36.9 Resp: normal respiratory effort Extremities: Moves all extremities, no edema Neuro: A&O x3 Skin: intact, no lesions noted Results & Data Results & Data Vital Signs (Past 12 Hours) Vital Signs Temp Pulse Resp BP Pulse Ox O2 Del Method 06/19/25 08:00 Room Air 06/19/25 07:08 36.8 C 66 16 117/73 99 Room Air PG Care Time/CCT Total # of Minutes Spent Total Time Spent with Patient: Total time spent is greater than 50% in coordination of care (as documented) at patient's floor/unit and/or counseling patient: Coding Level of Care Code 76994 SUB INP/OBS CARE 3/50MIN Diagnoses Pancreatic mass K86.89 Transaminitis R74.01 GERD (gastroesophageal reflux disease) K21.9 Atrial fibrillation I48.91
--- NOTE | 2025-06-19 12:30 | Magnetic Resonance Report ---
MR MRCP HISTORY: 64 years-old Male pancreatic mass, eval for ductal obstruction pancreatic malignancy with e xtensive metastatic disease COMPARISON: CT abdomen and pelvis 06/17/2025 TECHNIQUE: MRCP was obtained without IV contrast. Only the child and adolescent psychiatrist localizer images and coronal chest i mages were able to be obtained, the study was then aborted secondary to patient pain and discomfort, notably with supine positioning. FINDINGS: Pulmonary, pleural, hepatic lymphatic metastasis redemonstrated with large infiltrative 7.5 cm pancre atic mass again noted. As previously discussed, there is prior cholecystectomy without biliary invasi on, biliary ductal dilation, stricture or choledocholithiasis identified on these images. The common bile duct measures 6 mm transversely. No definite pancreatic ductal dilation identified on these imag es. Probable tiny side branch IPMN's of the pancreatic head/uncinate process measuring up to 4 mm. So ft tissue fullness of the uncinate process. No bowel obstruction or bowel wall thickening identified. No hydronephrosis. IMPRESSION: 1. Very limited study as the patient was unable to tolerate the entire MRCP exam. 2. Primary pancreatic malignancy with extensive metastatic disease redemonstrated. 3. Cholecystectomy without biliary ductal dilation. ACT 112: Negative or not required by law. The above report was generated using voice recognition software. It may contain grammatical, syntax o r spelling errors. Electronically signed by: Angel Mcguire M.D. 06/19/2025 12:29 PM
[2025-06-19] MEDS ORDERED: NALOXONE HCL 0.4 MG/1 ML VIAL/CARP IV PRN (16:34)
[2025-06-19] MEDS: SENNA 8.6 MG TAB PO SCH (21:28)
[2025-06-19] MEDS: MoRPHine SULFATE 2 MG/ML CARP IV PRN (21:30)
[2025-06-19] MEDS: ONDANSETRON INJ 2 MG/ML 2 ML VIAL IV PRN (22:04)
[2025-06-19] MEDS: LORazepam 0.5 MG TAB PO STA (22:04)
[2025-06-20 07:55] LABS: Hematocrit (blood only) 36.8 % (42.0-52.0); Hemoglobin 12.0 g/dl (14.0-18.0); Mean Corpuscular Hemoglobin 29.3 pg (25.0-34.0); Mean Corpuscular Volume 89.8 fL (80.0-100.0); Platelet Count 250 K/uL (130-400); RDW Standard Deviation 47.6 fL (36.4-46.3); Red Blood Count 4.10 M/uL (4.70-6.10); White Blood Count 9.98 K/ul (4.8-10.8)
[2025-06-20 08:12] LABS: Alanine Aminotransferase 108.0 U/L (7-52); Albumin Globulin Ratio 0.7 (0.9-2); Albumin Level 3.0 gm/dl (3.4-5.0); Alkaline Phosphatase 591.0 U/L (34-104); Anion Gap 6.0 (3-11); Bilirubin,Total 4.2 mg/dl (0.2-1.0); Blood Urea Nitrogen 16.0 mg/dl (6-23); Calcium 9.0 mg/dl (8.6-10.3); Carbon Dioxide 32.0 mmol/L (21-32); Chloride 92.0 mmol/L (98-107); Creatinine Clr Calc Pharmacy 118.6 ml/min; Globulin 4.5 gm/dl (2.5-4.0); Glucose 206.0 mg/dl (70-99(Fasting)); Potassium 4.2 mmol/L (3.5-5.1); Sodium 130.0 mmol/L (136-145); Total Protein 7.5 gm/dl (6.0-8.3)
[2025-06-20 08:19] LABS: INR 1.2 (0.9-1.1); Prothrombin Time 12.8 Seconds (9.0-12.0)
--- NOTE | 2025-06-20 11:31 | XRay Report ---
XR chest 1V not portable CLINICAL HISTORY: chest pain COMPARISON STUDY: 06/17/2025 FINDINGS: Heart size and pulmonary vasculature are normal. No consolidation or pleural effusion. No p neumothorax. IMPRESSION: No acute findings. ACT 112: Negative or not required by law. Electronically signed by: Alex García M.D. 06/20/2025 11:30 AM
--- NOTE | 2025-06-20 12:10 | Hospitalist Progress Note ---
Date of Service June 20, 2025 Assessment & Plan (1) Pancreatic mass: (2) Transaminitis: (3) GERD (gastroesophageal reflux disease): (4) Atrial fibrillation: Plan This is a 64 year old gentleman with past medical history of A fib, BPH, mild anemia, DM who presented to the ED recommended by his PCP on 06/17/2025 for back pain. While in the ED he underwent a chest CTA and CTAP that was concerning for a 7.5cm pancreatic mass suggestive of primary adenocarcinoma w/ metastatic disease including pulmonary, plerual, hepatic, and lymphatic mets w/ trace likely malignant right-sided pleural effusion. No PE. CXR was negative. CBC w/ WBC mildly elevated at 11, hgb mildly low at 13. INR elevated at 1.4. CMP w/ Na of 129, TB 3.0, DB 1.7, AST/ALT 78/113, AP 473. Trop mildly elevated at 22.9. APAP level pending. #Pancreatic Mass CTAP/Chest CTA w/ 7.3cm pancreatic mass suggestive of primary adenocarcinoma w/ metastatic disease including pulmonary, pleural, hepatic & lymphatic mets w/ trace likely malignant right sided pleural effusion. MRI/MRCP: limited as unable to tolerate much of exam - primary pancreatic malignancy w/ extensive metastatic disease re-demonstrated. s/p choley, no ductal dilatation. CBC w/resolution of leukocytosis. Hgb mildly low at 12.2. Per chart review does have hx of mild anemia, will monitor. Transaminitis secondary to mass - TB 4.2, AST/ALT 103/108; AP 591- continue to trend. Unfortunately liver biopsy unable to be completed on 06/20 secondary to anxiety & pain. --> plan for bx on 06/24 w/ dose of Ativan + Morphine prior for comfort. Continue to hold Xarelto for upcoming liver bx. Fentanyl 12mcg patch started 06/19, use Morphine 2mg IV prn q 3h for breakthrough pain for 1st 24 hours patch is on. adjust as needed. Zofran prn for N/V. Oncology consulted--> CA 19-9 pending; tx options following bx include hospice vs systemic therapy vs possible immunotherapy. Palliative care consulted --> code status change, patient would be agreeable to intubation for short time but does not want CPR. May increase Fentanyl patch but await pain response. #Constipation w/ irregular BM's since starting Ozempic. Hypoactive BS on examination. Start Miralax once daily in AM, - no BM thus far, add Senna HS #Hyponatremia Na low at 129 at time of admission, stable at 130 Urine osmol 477 urine Na <10. #Anxiety Continue Lexapro Added Ativan 0.5mg PO TID for anxiety. #Elevated troponin, Demand Ischemia. - resolved. Mildly elevated at 22.9 w/ repeat at 21.2 secondary from demand of panc mass EKG w/o signs of ischemia; endorses no CP. #A fib - Continue on Metoprolol & Dronedarone, follows outpatient w/ cards. HOLD Xarelto for upcoming liver biopsy #GERD - Continue PPI + Pepcid #BPH - Continue Finasteride #Morbid obesity with BMI 40.5 DVT prophylaxis: hold in setting of upcoming bx Code: full updated at bedside 06/20 Discussed w/ IR & Palliative care 06/20. Admission and Anticipated Discharge Date Admission Date: June 17, 2025 José Luis Huang was seen & examined this afternoon. Unfortunately, patient was too anxious & in pain. He was unable to have biopsy taken. He reports since receiving IV morphine he feels his pain is better. He is looking forward to going to the beach in [place] with his family. Reports he is eating minimal but tolerating what he can eat. Physical Exam Physical Exam: General: NAD, VS: BP 115/76; P65; R18; T36.4C Resp: normal respiratory effort Extremities: Moves all extremities, no edema Neuro: A&O x3, Skin: intact, no lesions noted, jaundiced Results & Data Results & Data Vital Signs (Past 12 Hours) Vital Signs Temp Pulse Resp BP Pulse Ox O2 Del Method O2 Flow Rate 06/20/25 09:49 65 18 115/76 99 Nasal Cannula 4 06/20/25 07:45 Room Air 06/20/25 07:15 36.4 C L 67 16 136/76 94 Room Air PG Care Time/CCT Total # of Minutes Spent Total Time Spent with Patient: Total time spent is greater than 50% in coordination of care (as documented) at patient's floor/unit and/or counseling patient: Coding Level of Care Code 54221 SUB INP/OBS CARE 3/50MIN Diagnoses Pancreatic mass K86.89 Transaminitis R74.01 GERD (gastroesophageal reflux disease) K21.9 Atrial fibrillation I48.91
--- NOTE | 2025-06-20 12:50 | Palliative Care Consultation ---
Date of Consultation June 20, 2025 Assessment & Plan (1) Cancer related pain: Pt pt c/o abdominal RUQ pain that radiates across to LUQ; intermittent sharp stabbing pain in lower right chest to epigastric region. He shared that prior to admission pain was constant and persisted at 8:10. Movement aggravates his pain and he was unable to identify relieving factors. He was given IV morphine on admission with minimal reduction on pain and transitioned to fentanyl patch. He is currently on 12ucg/hr fentanyl patch for less than 24hrs, with significant reduction in need for PRN opiates. His pain remains a self-reported 7::10. Encouraged ongoing use of PRN morphine for breakthrough pain. Continue Fentanyl 12 Mcg/Hr 1 patch TD Q3D ZEB (2) Cancer-related breakthrough pain: Encouraged ongoing use of PRN morphine for breakthrough pain. Pt agreeable to continue for now with plan to reassess need for adjustment tomorrow. Will need to transition to PO medication for BTP in preparation for discharge. Plan to use the previous 24-48hr PRN utilization for dose adjustment on long acting opiates (duragesic). Continue Morphine Sulfate 2 mg IV Q3H PRN for breakthrough pain (3) Palliative care by specialist: Met with pt and his at bedside. Introduced Palliative Medicine and explained our role in advanced care planning, symptom management and navigation through the progression of life limiting disease. Patient and/or family were receptive to palliative services for goals of care discussions. Reviewed we are different from hospice, a home health nurse visiting service. (4) Counseling regarding advanced directives and goals of care: Discussed GOC with pt and for 30 minutes today. 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 He shared that being a grandfather brings him the most carter in life. He became tearful and shared that he is hopeful that he can survive until Liz's 3rd birthday republican in late September. He also love the beach and hopes he can take one more trip to [place] or [place]. He shared that Dr Greco told him that if this lesions are metastatic pancreatic cancer, that it would not be curable and he was given prognosis of a few months. He shared that he wants any cancer directed treatments that will improve his odd of making it to Liz's birthday (October 09). We discussed at length the patient's acute and chronic medical conditions, general prognosis, treatment options, and goals of care. Pt shared that he had met with Dr Greco this admission and was told that he most likely has a met astatic pancreatic cancer but would require biopsy to determine treatment options. He shared that he became very anxious and ill when sent for liver biopsy today. He expressed feeling very overwhelmed by the rapid progression of his cancer. He shared that he does wish to have biopsy, but will need some sedation prior to procedure as he is very anxious about it. He shared that the biopsy has been rescheduled for Tuesday and he is hopeful that he can tolerate it and eager to move forward with any treatment options. Discussed code status and helped Sal and Sonia understand that CPR is only do ne after a person has and involves uncomfortable and invasive procedures that, if successful. have high risk of multiple complications including but not limited to rib fractures, pneumo/hemothorax, DARSHAN, ventilator dependence, anoxic brain injury, and detention/permanent cognitive and functional deficits. CPR survival: Only about 10% of patients who have zrv-iv-oefororb sudden cardiac arrest survive to hospital discharge, with many survivors having neurologic impairment. This rate is even lower among patients with serious coexisting conditions, ie chance of survival to hospital discharge for in- hospital CPR in older people is low to moderate (15%) and decreases with age, comorbidities, performance status and frailty: for pts > 70 yo, more than half of the patients who initially survived resuscitation in the hospital before hospital discharge. The pooled survival to discharge after in-hospital CPR was 18% for patients between 70 and 79 years old, 15% for patients between 80 and 89 years old and 11% for patients of 90 years and older. (Pool RUTHERFORDY, Hemal LJ, Gertrude F, et al. Trends in short- and long-term survival among vgu-ow-zlxblhxh cardiac arrest patients alive at hospital arrival. Circulation 2014;130:1883- 1890. AND Alexandro C, Leon T, Burak R, et al. Performance of clinical risk scores to predict mortality and neurological outcome in cardiac arrest patients. Resuscitation 2019;136:21-29.) Sal shared that if he were to , he would not want resuscitation, however he is ok with SHORT TERM mechanical ventilation if required for procedures or respiratory compromise that IS REVERSIBLE. Plan DNR, okay with short term intubation, pt would like to proceed with biopsy and any life prolonging canceer treatments. History of Present Illness Reason for Consultation: goals of care / symptom management Requesting Physician: Justice Egan Attending Physician: Justice Egan History of Present Illness Mr. Chand is a 64-year-old gentleman with medical history significant for atrial fibrillation and diabetes who was admitted to [facility] with back pain. CT chest, abdomen and pelvis on 06/17/2025 showed 7.5 cm pancreatic mass suggestive of primary pancreatic adenocarcinoma, metastatic disease of the chest and abdomen including pulmonary, pleural, hepatic and lymphatic metastasis with trace likely malignant right-sided pleural effusion.Plan is for IR guided liver biopsy after patient has been off Eliquis for 72 hours. Allergies Allergy/AdvReac Type Severity Reaction Status Date / Time No Known Drug Allergies Allergy Verified 06/17/25 11:34 Home Medications Medication Instructions Recorded Confirmed Type vit 2 tab PO QAM 02/27/21 06/17/25 History [id number] 500 mg-50 mg-25 mg-40 mg tablet (Bioflex) escitalopram oxalate 10 mg tablet 10 mg PO QAM #90 tabs 09/04/24 06/17/25 Rx finasteride 5 mg tablet 5 mg PO DAILY #90 tabs 09/05/24 06/17/25 Rx metoprolol succinate 25 mg 25 mg PO QAM #90 tabs 09/05/24 06/17/25 Rx tablet,extended release 24 hr rivaroxaban 20 mg tablet (Xarelto) 20 mg PO QPM #90 tabs 09/25/24 06/17/25 Rx esomeprazole magnesium 20 mg 20 mg PO BID #180 caps 01/30/25 06/17/25 Rx capsule,delayed release dronedarone 400 mg tablet (Multaq) 400 mg PO BID #180 tabs 03/18/25 06/17/25 Rx famotidine 40 mg tablet 40 mg PO QAM #90 tabs 03/20/25 06/17/25 Rx Patient History Medical History History of cardioversion 06/17/22, [place]; f/u dr ellison, [place]; [place], [place] GERD (gastroesophageal reflux disease) ADD (attention deficit disorder) Anxiety and depression History of COVID-19 03/23/22>home test *a-fib occured Sleep apnea cpap used Surgical History History of cardiac radiofrequency ablation 09/2022, [place]; f/u Dr. Castro, [facility] History of tooth extraction Hx of LASIK Hx of cholecystectomy H/O hernia repair Family History Brother History of kidney cancer Unknown Diabetes Hypertension Father Stroke Mother Stroke Other No family history of adverse response to anesthesia Denies family history of Colon cancer Ovarian cancer Prostate cancer Myocardial infarction Breast cancer Social History Smoking Status: Never smoker Second Hand Exposure: Yes (HX CHILD); Do You Dip or Chew Tobacco: No; Hx Alcohol Use: Yes Alcohol type: hard liquor Hx Substance Use: No Preferred Language: Martiniquais Communication Ability: Effective Visual Impairment: No Limitations Hearing Ability: Normal Open Claims Representative Required: No Beliefs That Will Affect Care: None marital status: Current Living Situation: Spouse current occupational status: employed 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 Musculoskeletal: back pain, lower lumbar Physical Exam Constitutional: WD/WN, vitals as above + ill appearing, + morbidly obese and cooperative Eyes: PERRL, conjunctivae normal, anicteric sclerae Neck: trachea midline, no thyromegaly Respiratory: normal respiratory effort, lungs clear to auscultation Cardiovascular: RRR, no murmur, no edema Gastrointestinal (Abdomen): Inspection/Auscultation: + hypoactive bowel sounds Percussion/Palpation: + abdomen tender (tender along periumbilical area ) and abdomen soft; no guarding, abdomen not rigid and no hepatosplenomegaly Musculoskeletal: no cyanosis or clubbing, extremities motor strength 5/5 Skin: no rashes, warm and dry Neurologic: PERRL, EOMI, accommodation nl, no face palsy, no dysarthria Psychiatric: A+Ox3, euthymic affect Results & Data Vital Signs (Past 12 Hours) Vital Signs Temp Pulse Resp BP Pulse Ox O2 Del Method O2 Flow Rate 06/20/25 09:49 65 18 115/76 99 Nasal Cannula 4 06/20/25 07:45 Room Air 06/20/25 07:15 36.4 C L 67 16 136/76 94 Room Air Laboratory Results Abnormal lab results 06/19/25 06/20/25 Range/Units 18:05 07:18 RBC 4.10 L (4.70-6.10) M/uL Hgb 12.0 L (14.0-18.0) g/dl Hct 36.8 L (42.0-52.0) % RDW Std Deviation 47.6 H (36.4-46.3) fL RDW Coeff of Cruzito 14.6 H (11.5-14.5) % PT 12.8 H (9.0-12.0) Seconds INR 1.2 H (0.9-1.1) Sodium 130 L (136-145) mmol/L Chloride 92 L (98-107) mmol/L Glucose 206 H (70-99(Fasting)) mg/dl Total Bilirubin 4.2 H (0.2-1.0) mg/dl AST 103 H (13-39) U/L ALT 108 H (7-52) U/L Alkaline Phosphatase 591 H (34-104) U/L Albumin 3.0 L (3.4-5.0) gm/dl Globulin 4.5 H (2.5-4.0) gm/dl Albumin/Globulin Ratio 0.7 L (0.9-2) Urine Osmolality 477 L (500-800) mOsm/kg Diagnostic Findings Abdomen/Pelvis CT 06/17/25 12:43 CT angio chest PE protocol, CT abd pelvis IV con only CT DOSE: 2428.37 mGy.cm HISTORY: 64 years-old Male with PE. Acute short of breath with chest and abdominal pain TECHNIQUE: Multiple CTA images of the chest were obtained after the intravenous administration of 118 ml Optiray. Coronal and sagittal MIPS were obtained from the axial data set and were submitted for review. All measurements were obta ined according to NASCET criteria. CT Abdomen and pelvis with IV contrast only also obtained. A dose lowering technique was utilized adhering to the principles of ALARA. COMPARISON: None. FINDINGS: CTA: No central pulmonary emboli are seen. Heart size is normal. Moderate coronary artery calcifications. No pulmonary emboli are seen. CT CHEST: Unremarkable thyroid. Subcentimeter mediastinal and right hilar lymph nodes. No pathologically enlarged lymph nodes are seen. Trace right pleural effusion. No pneumothorax. Irregular bilateral scattered solid pulmonary nodules measure up to approximately 2 cm from the right upper lobe. Several of the nodules are seen within a perifissural distribution. Central airways are patent. Pleural-based nodule the basal right lower lobe on image 60 measures 3.3 cm. Smaller subcentimeter pleural-based nodules are present bilaterally. A subcentimeter epicardial lymph node is seen on image 67. Unremarkable soft tissues. No acute fracture or destructive bone lesion is seen. CT ABDOMEN/PELVIS: No pneumatosis or pneumoperitoneum identified. Unremarkable spleen, and adrenal glands. Cholecystectomy. Scattered ill-defined hypodense liver lesions measuring up to 4.3 cm. Trace perihepatic fluid/hemorrhage on image 164 series 6 (likely secondary to one of the metastatic lesions demonstrating internal hemorrhage). Patent portal vein. Occlusion of the splenic vein. Periportal lymph nodes measure up to 1.3 cm. There is a large infiltrative ill-defined hypodense mass involving the pancreatic body on image 162 series 6 which measures 7.5 x 5.1 x 5.4 cm on image 162 series 6. This abuts the lesser curvature of the stomach and adjacent left hepatic lobe. There is also partial encasement of the splenic artery. This mass does not involve the superior mesenteric artery. No biliary ductal dilation to Unremarkable kidneys without hydronephrosis. Urinary bladder is within normal limits. Atherosclerosis of the aorta. No bowel obstruction or bowel wall thickening. Colonic diverticulosis without acute diverticulitis. No CT evidence of acute appendicitis. Unremarkable soft tissues. No acute fracture or destructive bone lesion identified. IMPRESSION: 1. 7.5 cm pancreatic mass suggestive of primary pancreatic adenocarcinoma with involvement of adjacent structures as above. 2. Metastatic disease of the chest and abdomen includes pulmonary, pleural, hepatic and lymphatic metastasis with trace likely malignant right-sided pleural effusion. 3. No pulmonary emboli. 4. No bowel obstruction or bowel wall thickening. 5. Colonic diverticulosis. ACT 112: Positive. There are findings on this exam that require communication between the performing entity and the patient following Patient Test Result Information Act ([place] Act 112) guidelines. The above report was generated using voice recognition software. It may contain grammatical, syntax or spelling errors. Electronically signed by: Angel Mcguire M.D. 06/17/2025 3:00 PM Chest CTA 06/17/25 12:46 CT angio chest PE protocol, CT abd pelvis IV con only CT DOSE: 2428.37 mGy.cm HISTORY: 64 years-old Male with PE. Acute short of breath with chest and abdominal pain TECHNIQUE: Multiple CTA images of the chest were obtained after the intravenous administration of 118 ml Optiray. Coronal and sagittal MIPS were obtained from the axial data set and were submitted for review. All measurements were obtained according to NASCET criteria. CT Abdomen and pelvis with IV contrast only also obtained. A dose lowering technique was utilized adhering to the principles of ALARA. COMPARISON: None. FINDINGS: CTA: No central pulmonary emboli are seen. Heart size is normal. Moderate coronary artery calcifications. No pulmonary emboli are seen. CT CHEST: Unremarkable thyroid. Subcentimeter mediastinal and right hilar lymph nodes. No pathologically enlarged lymph nodes are seen. Trace right pleural effusion. No pneumothorax. Irregular bilateral scattered solid pulmonary nodules measure up to approximately 2 cm from the right upper lobe. Several of the nodules are seen within a perifissural distribution. Central airways are patent. Pleural-based nodule the basal right lower lobe on image 60 measures 3.3 cm. Smaller subcentimeter pleural-based nodules are present bilaterally. A subcentimeter epicardial lymph node is seen on image 67. Unremarkable soft tissues. No acute fracture or destructive bone lesion is seen. CT ABDOMEN/PELVIS: No pneumatosis or pneumoperitoneum identified. Unremarkable spleen, and adrenal glands. Cholecystectomy. Scattered ill-defined hypodense liver lesions measuring up to 4.3 cm. Trace perihepatic fluid/hemorrhage on image 164 series 6 (likely secondary to one of the metastatic lesions demonstrating internal hemorrhage). Patent portal vein. Occlusion of the splenic vein. Periportal lymph nodes measure up to 1.3 cm. There is a large infiltrative ill-defined hypodense mass involving the pancreatic body on image 162 series 6 which measures 7.5 x 5.1 x 5.4 cm on image 162 series 6. This abuts the lesser curvature of the stomach and adjacent left hepatic lobe. There is also partial encasement of the splenic artery. This mass does not involve the superior mesenteric artery. No biliary ductal dilation to Unremarkable kidneys without hydronephrosis. Urinary bladder is within normal limits. Atherosclerosis of the aorta. No bowel obstruction or bowel wall thickening. Colonic diverticulosis without acute diverticulitis. No CT evidence of acute appendicitis. Unremarkable soft tissues. No acute fracture or destructive bone lesion identified. IMPRESSION: 1. 7.5 cm pancreatic mass suggestive of primary pancreatic adenocarcinoma with involvement of adjacent structures as above. 2. Metastatic disease of the chest and abdomen includes pulmonary, pleural, hepatic and lymphatic metastasis with trace likely malignant right-sided pleural effusion. 3. No pulmonary emboli. 4. No bowel obstruction or bowel wall thickening. 5. Colonic diverticulosis. ACT 112: Positive. There are findings on this exam that require communication between the performing entity and the patient following Patient Test Result Information Act ([place] Act 112) guidelines. The above report was generated using voice recognition software. It may contain grammatical, syntax or spelling errors. Electronically signed by: Angel Mcguire M.D. 06/17/2025 3:00 PM Cholangiopancreatography MRI 06/19/25 08:16 MR MRCP HISTORY: 64 years-old Male pancreatic mass, eval for ductal obstruction pancreatic malignancy with extensive metastatic disease COMPARISON: CT abdomen and pelvis 06/17/2025 TECHNIQUE: MRCP was obtained without IV contrast. Only the senior games technician localizer images and coronal chest images were able to be obtained, the study was then aborted secondary to patient pain and discomfort, notably with supine positioning. FINDINGS: Pulmonary, pleural, hepatic lymphatic metastasis redemonstrated with large infiltrative 7.5 cm pancreatic mass again noted. As previously discussed, there is prior cholecystectomy without biliary invasion, biliary ductal dilation, stricture or choledocholithiasis identified on these images. The common bile duct measures 6 mm transversely. No definite pancreatic ductal dilation identified on these images. Probable tiny side branch IPMN's of the pancreatic head/uncinate process measuring up to 4 mm. Soft tissue fullness of the uncinate process. No bowel obstruction or bowel wall thickening identified. No hydronephrosis. IMPRESSION: 1. Very limited study as the patient was unable to tolerate the entire MRCP exam. 2. Primary pancreatic malignancy with extensive metastatic disease redemonstrate d. 3. Cholecystectomy without biliary ductal dilation. ACT 112: Negative or not required by law. The above report was generated using voice recognition software. It may contain grammatical, syntax or spelling errors. Electronically signed by: Angel Mcguire M.D. 06/19/2025 12:29 PM Chest X-Ray 06/20/25 09:53 XR chest 1V not portable CLINICAL HISTORY: chest pain COMPARISON STUDY: 06/17/2025 FINDINGS: Heart size and pulmonary vasculature are normal. No consolidation or pleural effusion. No pneumothorax. IMPRESSION: No acute findings. ACT 112: Negative or not required by law. Electronically signed by: Alex García M.D. 06/20/2025 11:30 AM Medications Administered Current Inpatient Medications Dronedarone (Dronedarone Hcl 400 Mg Tab) 400 mg PO BID ZEB Stop: 07/17/25 20:59 Last Admin: 06/20/25 09:15 Dose: 400 mg Escitalopram Oxalate (Escitalopram Oxalate 10 Mg Tab) 10 mg PO QAM ZEB Stop: 07/18/25 08:59 Last Admin: 06/20/25 09:09 Dose: 10 mg Famotidine (Famotidine 40 Mg Tablet) 40 mg PO QAM ZEB Stop: 07/18/25 08:59 Last Admin: 06/20/25 09:09 Dose: 40 mg Fentanyl (Fentanyl 12 Mcg/Hr Tdsy) 1 patch TD Q3D ZEB Stop: 07/03/25 16:44 Last Admin: 06/19/25 17:36 Dose: 1 patch Finasteride (Finasteride 5 Mg Tab) 5 mg PO DAILY ZEB Stop: 07/18/25 08:59 Last Admin: 06/20/25 09:09 Dose: 5 mg Lorazepam (Lorazepam 0.5 Mg Tab) 0.5 mg PO TID PRN PRN Reason: Anxiety Stop: 07/20/25 14:04 Metoprolol Succinate (Metoprolol Succ 25mg Ext Rel Tab) 25 mg PO QAM ZEB Stop: 07/18/25 08:59 Last Admin: 06/20/25 09:09 Dose: 25 mg Miscellaneous (Fentanyl Patch Remove & Waste) 1 each N/A Q3D ZEB Stop: 07/19/25 16:44 Last Admin: 06/19/25 18:07 Dose: Not Given Miscellaneous (Check Fentanyl Patch Placement) 1 each N/A QS ZEB Stop: 07/20/25 00:00 Last Admin: 06/20/25 09:15 Dose: 1 each Morphine Sulfate (Morphine Sulfate 2 Mg/Ml Carp) 2 mg IV Q3H PRN PRN Reason: Pain 8,9,10 Stop: 07/01/25 16:01 Last Admin: 06/20/25 13:37 Dose: 2 mg Naloxone HCl (Naloxone Hcl 0.4 Mg/1 Ml Vial/Carp) 0.1 mg IV Q5M PRN PRN Reason: Oversedation/Resp Depression Stop: 07/19/25 16:33 Ondansetron HCl (Ondansetron Inj 2 Mg/Ml 2 Ml Vial) 4 mg IV Q4H PRN PRN Reason: Nausea Stop: 07/17/25 18:59 Last Admin: 06/19/25 22:04 Dose: 4 mg Pantoprazole Sodium (Pantoprazole 40 Mg Tab) 40 mg PO BID ZEB Stop: 07/17/25 20:59 Last Admin: 06/20/25 09:09 Dose: 40 mg Polyethylene Glycol (Polyethylene (Miralax) 17 Gm Pack) 17 gm PO DAILY ZEB Stop: 07/18/25 08:59 Last Admin: 06/20/25 13:31 Dose: Not Given Sennosides (Senna 8.6 Mg Tab) 8.6 mg PO HS ZEB Stop: 07/19/25 20:59 Last Admin: 06/19/25 21:28 Dose: Not Given PG Care Time/CCT Total # of Minutes Spent Total Time Spent with Patient: Total time spent is greater than 50% in coordination of care (as documented) at patient's floor/unit and/or counseling patient: Advanced Care Planning 57299 Advanced Care Planning 30 [place] [address] IN/OBS CONSULT LVL 4,60M Patient Type New History Detailed Exam Detailed Medical Decision Making Moderate Complexity Diagnoses Cancer related pain G89.3 Cancer-related breakthrough pain G89.3 Palliative care by specialist Z51.5 Counseling regarding advanced directives and goals of care Z71.89 Additional Codes Advanced Care Planning - 82161 Advanced Care Planning 30 Min: 52704 Advanced Care Planning 30 Min ([id number])
--- NOTE | 2025-06-20 18:14 | Electrocardiogram Report ---
Test Reason : Blood Pressure : */* mmHG Vent. Rate : 66 BPM Atrial Rate : 66 BPM P-R Int : 188 ms QRS Dur : 86 ms QT Int : 464 ms P-R-T Axes : 65 19 63 degrees QTcB Int : 486 ms Normal sinus rhythm Nonspecific ST abnormality When compared with ECG of 17-Jun-2025 12:56, T wave inversion no longer evident in Lateral leads QT has lengthened Confirmed by Floyd Rosenthal ([id number] on 06/20/2025 6:14:10 PM Referred By: Joshua Espino Confirmed By: Floyd Rosenthal
[2025-06-20] MEDS: LORazepam 0.5 MG TAB PO PRN (23:21)
[2025-06-21 07:54] LABS: Hematocrit (blood only) 35.5 % (42.0-52.0); Hemoglobin 12.2 g/dl (14.0-18.0); Mean Corpuscular Hemoglobin 30.4 pg (25.0-34.0); Mean Corpuscular Volume 88.5 fL (80.0-100.0); Platelet Count 246 K/uL (130-400); RDW Standard Deviation 47.8 fL (36.4-46.3); Red Blood Count 4.01 M/uL (4.70-6.10); White Blood Count 10.86 K/ul (4.8-10.8)
[2025-06-21 08:12] LABS: Alanine Aminotransferase 109.0 U/L (7-52); Albumin Globulin Ratio 0.7 (0.9-2); Albumin Level 3.0 gm/dl (3.4-5.0); Alkaline Phosphatase 630.0 U/L (34-104); Anion Gap 6.0 (3-11); Bilirubin,Total 4.3 mg/dl (0.2-1.0); Blood Urea Nitrogen 15.0 mg/dl (6-23); Calcium 8.9 mg/dl (8.6-10.3); Carbon Dioxide 29.0 mmol/L (21-32); Chloride 94.0 mmol/L (98-107); Creatinine Clr Calc Pharmacy 143.9 ml/min; Globulin 4.4 gm/dl (2.5-4.0); Glucose 209.0 mg/dl (70-99(Fasting)); Potassium 4.2 mmol/L (3.5-5.1); Sodium 129.0 mmol/L (136-145); Total Protein 7.4 gm/dl (6.0-8.3)
[2025-06-21] MEDS: MoRPHine SULFATE 2 MG/ML CARP IV STA (08:52)
[2025-06-21] MEDS: MoRPHine SULFATE 4 MG/ML 1 ML CARP\\VIAL IV STA (09:27)
[2025-06-21] MEDS: MoRPHine SULFATE 4 MG/ML 1 ML CARP\\VIAL ONE (09:29)
[2025-06-21] MEDS ORDERED: NALOXONE HCL 0.4 MG/1 ML VIAL/CARP IV PRN (09:37)
[2025-06-21] MEDS: SODIUM CHLORIDE 0.9% 1,000 ML IV SCH (10:34)
--- NOTE | 2025-06-21 12:34 | Hospitalist Progress Note ---
Date of Service June 21, 2025 Assessment & Plan (1) Pancreatic mass: (2) Transaminitis: (3) GERD (gastroesophageal reflux disease): (4) Atrial fibrillation: Plan This is a 64 year old gentleman with past medical history of A fib, BPH, mild anemia, DM who presented to the ED recommended by his PCP on 06/17/2025 for back pain. While in the ED he underwent a chest CTA and CTAP that was concerning for a 7.5cm pancreatic mass suggestive of primary adenocarcinoma w/ metastatic disease including pulmonary, plerual, hepatic, and lymphatic mets w/ trace likely malignant right-sided pleural effusion. No PE. CXR was negative. CBC w/ WBC mildly elevated at 11, hgb mildly low at 13. INR elevated at 1.4. CMP w/ Na of 129, TB 3.0, DB 1.7, AST/ALT 78/113, AP 473. Trop mildly elevated at 22.9. APAP level pending. #Pancreatic Mass CTAP/Chest CTA w/ 7.3cm pancreatic mass suggestive of primary adenocarcinoma w/ metastatic disease including pulmonary, pleural, hepatic & lymphatic mets w/ trace likely malignant right sided pleural effusion. MRI/MRCP: limited as unable to tolerate much of exam - primary pancreatic malignancy w/ extensive metastatic disease re-demonstrated. s/p choley, no ductal dilatation. Transaminitis secondary to mass - TB 4.3, AST/ALT 104/109; AP 630- continue to trend. Unfortunately liver biopsy unable to be completed on 06/20 secondary to anxiety & pain. --> plan for bx on 06/24 Continue to hold Xarelto for upcoming liver bx. Fentanyl 12mcg patch started 06/19, use Morphine 2mg IV prn q 3h for breakthrough pain for 1st 24 hours patch is on. adjust as needed. Zofran prn for N/V. Oncology consulted--> CA 19-9 68,658; tx options following bx include hospice vs systemic therapy vs possible immunotherapy. Palliative care consulted --> code status change, patient would be agreeable to intubation for short time but does not want CPR. Transitioned to CORK CUTTER 06/21 & increased Fentanyl patch to 25mcg. #Constipation w/ irregular BM's since starting Ozempic. Hypoactive BS on examination. Start Miralax once daily in AM, - no BM thus far, add Senna HS #Hyponatremia Na low at 129 at time of admission, Na 129 Urine osmol 477 urine Na <10. #Anxiety Continue Lexapro Added Ativan 0.5mg PO TID for anxiety prn. #Elevated troponin, Demand Ischemia. - resolved. Mildly elevated at 22.9 w/ repeat at 21.2 secondary from demand of panc mass EKG w/o signs of ischemia; endorses no CP. #A fib - Continue on Metoprolol & Dronedarone, follows outpatient w/ cards. HOLD Xarelto for upcoming liver biopsy #GERD - Continue PPI + Pepcid #BPH - Continue Finasteride #Morbid obesity with BMI 40.5 DVT prophylaxis: hold in setting of upcoming bx, MIQUEL stockings added 06/21. Code: full Discussed w/& Palliative care 06/21. Admission and Anticipated Discharge Date Admission Date: June 17, 2025 José Luis Huang was seen & examined this morning. He was transitioned to a CORK CUTTER pump for pain control this AM. At time of encounter, he appeared alert but reports fatigued. Reports pain is better controlled now that he has CORK CUTTER pump. Physical Exam Physical Exam: General: NAD, VS: BP 125/79; P69; R18; T36.3C Resp: normal respiratory effort Extremities: mild LLE edema, no pitting. Neuro: A&O x3, drowsy Skin: intact, no lesions noted, jaundiced Results & Data Results & Data Vital Signs (Past 12 Hours) Vital Signs Temp Pulse Resp BP Pulse Ox O2 Del Method 06/21/25 07:08 36.3 C L 69 18 125/79 96 Room Air PG Care Time/CCT Total # of Minutes Spent Total Time Spent with Patient: Total time spent is greater than 50% in coordination of care (as documented) at patient's floor/unit and/or counseling patient: Coding Level of Care Code 97603 SUB INP/OBS CARE 235MIN Diagnoses Pancreatic mass K86.89 Transaminitis R74.01 GERD (gastroesophageal reflux disease) K21.9 Atrial fibrillation I48.91
--- NOTE | 2025-06-21 15:36 | Palliative Care Progress Note ---
Date of Service June 21, 2025 Assessment & Plan (1) Cancer related pain: Plan: Pt found in acute pain crisis this morning 10::10 pain. Discussed increasing duragesic and starting MANAGER GYN, pt agreeable. Ordered MANAGER GYN morphine 2mg every 20min PRN clinician bolus morphine 2mg q1hr PRN Increased Fentanyl 25 Mcg/Hr 1 patch TD Q3D ZEB (2) Palliative care by specialist: Plan: Palliative care will continue to follow for ongoing symptom management and patient/family support. (3) Counseling regarding advanced directives and goals of care: Plan: pt goals are clearly established for ongoing cancer directed treatment with the hope of prolonging life. Plan for liver biopsy on Tuesday to develop treatment plan. Plan DNR, okay with short term intubation, pt would like to proceed with biopsy and any life prolonging canceer treatments. Admission and Anticipated Discharge Date Admission Date: June 17, 2025 Subjective Assessed pt at bedside this morning, he was in acute pain crisis and stated that his pain did not allow him to sleep. Initiated MANAGER GYN morphine and increased duragesic patch. Reassessed pt later in day, he was drowsy but arousable and voiced appropriate pain control. Review of Systems Review of Systems: pt c/o abdominal RUQ pain that radiates across to LUQ; intermittent sharp stabbing pain in lower right chest to epigastric region. Musculoskeletal: back pain, lower lumbar Physical Exam Constitutional: WD/WN, vitals as above + ill appearing, + morbidly obese and cooperative Eyes: PERRL, conjunctivae normal, anicteric sclerae Neck: trachea midline, no thyromegaly Respiratory: normal respiratory effort, lungs clear to auscultation Cardiovascular: RRR, no murmur, no edema Gastrointestinal (Abdomen): Inspection/Auscultation: + hypoactive bowel sounds Percussion/Palpation: + abdomen tender (tender along periumbilical area ) and abdomen soft; no guarding, abdomen not rigid and no hepatosplenomegaly Musculoskeletal: no cyanosis or clubbing, extremities motor strength 5/5 Skin: no rashes, warm and dry Neurologic: PERRL, EOMI, accommodation nl, no face palsy, no dysarthria Psychiatric: A+Ox3, euthymic affect Results & Data Vital Signs (Past 12 Hours) Vital Signs Temp Pulse Resp BP Pulse Ox O2 Del Method 06/21/25 07:08 36.3 C L 69 18 125/79 96 Room Air Laboratory Results Abnormal lab results 06/21/25 Range/Units 07:19 WBC 10.86 H (4.8-10.8) K/ul RBC 4.01 L (4.70-6.10) M/uL Hgb 12.2 L (14.0-18.0) g/dl Hct 35.5 L (42.0-52.0) % RDW Std Deviation 47.8 H (36.4-46.3) fL RDW Coeff of [place]ito 14.7 H (11.5-14.5) % Sodium 129 L (136-145) mmol/L Chloride 94 L (98-107) mmol/L Glucose 209 H (70-99(Fasting)) mg/dl Total Bilirubin 4.3 H (0.2-1.0) mg/dl AST 104 H (13-39) U/L ALT 109 H (7-52) U/L Alkaline Phosphatase 630 H (34-104) U/L Albumin 3.0 L (3.4-5.0) gm/dl Globulin 4.4 H (2.5-4.0) gm/dl Albumin/Globulin Ratio 0.7 L (0.9-2) Diagnostic Findings Abdomen/Pelvis CT 06/17/25 12:43 CT angio chest PE protocol, CT abd pelvis IV con only CT DOSE: 2428.37 mGy.cm HISTORY: 64 years-old Male with PE. Acute short of breath with chest and abdominal pain TECHNIQUE: Multiple CTA images of the chest were obtained after the intravenous administration of 118 ml Optiray. Coronal and sagittal MIPS were obtained from the axial data set and were submitted for review. All measurements were obtained according to NASCET criteria. CT Abdomen and pelvis with IV contrast only also obtained. A dose lowering technique was utilized adhering to the principles of ALARA. COMPARISON: None. FINDINGS: CTA: No central pulmonary emboli are seen. Heart size is normal. Moderate coronary artery calcifications. No pulmonary emboli are seen. CT CHEST: Unremarkable thyroid. Subcentimeter mediastinal and right hilar lymph nodes. No pathologically enlarged lymph nodes are seen. Trace right pleural effusion. No pneumothorax. Irregular bilateral scattered solid pulmonary nodules measure up to approximately 2 cm from the right upper lobe. Several of the nodules are seen within a perifissural distribution. Central airways are patent. Pleural-based nodule the basal right lower lobe on image 60 measures 3.3 cm. Smaller subcentimeter pleural-based nodules are present bilaterally. A subcentimeter epicardial lymph node is seen on image 67. Unremarkable soft tissues. No acute fracture or destructive bone lesion is seen. CT ABDOMEN/PELVIS: No pneumatosis or pneumoperitoneum identified. Unremarkable spleen, and adrenal glands. Cholecystectomy. Scattered ill-defined hypodense liver lesions measuring up to 4.3 cm. Trace perihepatic fluid/hemorrhage on image 164 series 6 (likely secondary to one of the metastatic lesions demonstrating internal hemorrhage). Patent portal vein. Occlusion of the splenic vein. Periportal lymph nodes measure up to 1.3 cm. There is a large infiltrative ill-defined hypodense mass i nvolving the pancreatic body on image 162 series 6 which measures 7.5 x 5.1 x 5.4 cm on image 162 series 6. This abuts the lesser curvature of the stomach and adjacent left hepatic lobe. There is also partial encasement of the splenic artery. This mass does not involve the superior mesenteric artery. No biliary ductal dilation to Unremarkable kidneys without hydronephrosis. Urinary bladder is within normal limits. Atherosclerosis of the aorta. No bowel obstruction or bowel wall thickening. Colonic diverticulosis without acute diverticulitis. No CT evidence of acute appendicitis. Unremarkable soft tissues. No acute fracture or destructive bone lesion identified. IMPRESSION: 1. 7.5 cm pancreatic mass suggestive of primary pancreatic adenocarcinoma with involvement of adjacent structures as above. 2. Metastatic disease of the chest and abdomen includes pulmonary, pleural, hepatic and lymphatic metastasis with trace likely malignant right-sided pleural effusion. 3. No pulmonary emboli. 4. No bowel obstruction or bowel wall thickening. 5. Colonic diverticulosis. ACT 112: Positive. There are findings on this exam that require communication between the performing entity and the patient following Patient Test Result Information Act ([place] Act 112) guidelines. The above report was generated using voice recognition software. It may contain grammatical, syntax or spelling errors. Electronically signed by: Angel Mcguire M.D. 06/17/2025 3:00 PM Chest CTA 06/17/25 12:46 CT angio chest PE protocol, CT abd pelvis IV con only CT DOSE: 2428.37 mGy.cm HISTORY: 64 years-old Male with PE. Acute short of breath with chest and abdominal pain TECHNIQUE: Multiple CTA images of the chest were obtained after the intravenous administration of 118 ml Optiray. Coronal and sagittal MIPS were obtained from the axial data set and were submitted for review. All measurements were obtained according to NASCET criteria. CT Abdomen and pelvis with IV contrast only also obtained. A dose lowering technique was utilized adhering to the principles of ALARA. COMPARISON: None. FINDINGS: CTA: No central pulmonary emboli are seen. Heart size is normal. Moderate coronary artery calcifications. No pulmonary emboli are seen. CT CHEST: Unremarkable thyroid. Subcentimeter mediastinal and right hilar lymph nodes. No pathologically enlarged lymph nodes are seen. Trace right pleural effusion. No pneumothorax. Irregular bilateral scattered solid pulmonary nodules measure up to approximately 2 cm from the right upper lobe. Several of the nodules are seen within a perifissural distribution. Central airways are patent. Pleural-based nodule the basal right lower lobe on image 60 measures 3.3 cm. Smaller subcentimeter pleural-based nodules are present bilaterally. A subcentimeter epicardial lymph node is seen on image 67. Unremarkable soft tissues. No acute fracture or destructive bone lesion is seen. CT ABDOMEN/PELVIS: No pneumatosis or pneumoperitoneum identified. Unremarkable spleen, and adrenal glands. Cholecystectomy. Scattered ill-defined hypodense liver lesions measuring up to 4.3 cm. Trace perihepatic fluid/hemorrhage on image 164 series 6 (likely secondary to one of the metastatic lesions demonstrating internal hemorrhage). Patent portal vein. Occlusion of the splenic vein. Periportal lymph nodes marie sure up to 1.3 cm. There is a large infiltrative ill-defined hypodense mass involving the pancreatic body on image 162 series 6 which measures 7.5 x 5.1 x 5.4 cm on image 162 series 6. This abuts the lesser curvature of the stomach and adjacent left hepatic lobe. There is also partial encasement of the splenic artery. This mass does not involve the superior mesenteric artery. No biliary ductal dilation to Unremarkable kidneys without hydronephrosis. Urinary bladder is within normal limits. Atherosclerosis of the aorta. No bowel obstruction or bowel wall thickening. Colonic diverticulosis without acute diverticulitis. No CT evidence of acute appendicitis. Unremarkable soft tissues. No acute fracture or destructive bone lesion identified. IMPRESSION: 1. 7.5 cm pancreatic mass suggestive of primary pancreatic adenocarcinoma with involvement of adjacent structures as above. 2. Metastatic disease of the chest and abdomen includes pulmonary, pleural, hepatic and lymphatic metastasis with trace likely malignant right-sided pleural effusion. 3. No pulmonary emboli. 4. No bowel obstruction or bowel wall thickening. 5. Colonic diverticulosis. ACT 112: Positive. There are findings on this exam that require communication between the performing entity and the patient following Patient Test Result Information Act ([place] Act 112) guidelines. The above report was generated using voice recognition software. It may contain grammatical, syntax or spelling errors. Electronically signed by: Angel Mcguire M.D. 06/17/2025 3:00 PM Cholangiopancreatography MRI 06/19/25 08:16 MR MRCP HISTORY: 64 years-old Male pancreatic mass, eval for ductal obstruction pancreatic malignancy with extensive metastatic disease COMPARISON: CT abdomen and pelvis 06/17/2025 TECHNIQUE: MRCP was obtained without IV contrast. Only the lace roller localizer images and coronal chest images were able to be obtained, the study was then aborted secondary to patient pain and discomfort, notably with supine positioning. FINDINGS: Pulmonary, pleural, hepatic lymphatic metastasis redemonstrated with large infiltrative 7.5 cm pancreatic mass again noted. As previously discussed, there is prior cholecystectomy without biliary invasion, biliary ductal dilation, stricture or choledocholithiasis identified on these images. The common bile duct measures 6 mm transversely. No definite pancreatic ductal dilation identified on these images. Probable tiny side branch IPMN's of the pancreatic head/uncinate process measuring up to 4 mm. Soft tissue fullness of the uncinate process. No bowel obstruction or bowel wall thickening identified. No hydronephrosis. IMPRESSION: 1. Very limited study as the patient was unable to tolerate the entire MRCP exam. 2. Primary pancreatic malignancy with extensive metastatic disease redemonstrated. 3. Cholecystectomy without biliary ductal dilation. ACT 112: Negative or not required by law. The above report was generated using voice recognition software. It may contain grammatical, syntax or spelling errors. Electronically signed by: Angel Mcguire M.D. 06/19/2025 12:29 PM Chest X-Ray 06/20/25 09:53 XR chest 1V not portable CLINICAL HISTORY: chest pain COMPARISON STUDY: 06/17/2025 FINDINGS: Heart size and pulmonary vasculature are normal. No consolidation or pleural effusion. No pneumothorax. IMPRESSION: No acute findings. ACT 112: Negative or not required by law. Electronically signed by: Alex García M.D. 06/20/2025 11:30 AM Medications Administered Current Inpatient Medications Dronedarone (Dronedarone Hcl 400 Mg Tab) 400 mg PO BID [facility] Stop: 07/17/25 20:59 Last Admin: 06/21/25 08:39 Dose: 400 mg Escitalopram Oxalate (Escitalopram Oxalate 10 Mg Tab) 10 mg PO QAM [facility] Stop: 07/18/25 08:59 Last Admin: 06/21/25 08:39 Dose: 10 mg Famotidine (Famotidine 40 Mg Tablet) 40 mg PO QAM [facility] Stop: 07/18/25 08:59 Last Admin: 06/21/25 08:39 Dose: 40 mg Fentanyl (Fentanyl 25 Mcg/Hr Tdsy) 1 patch TD Q3D [facility] Stop: 07/05/25 09:59 Last Admin: 06/21/25 11:16 Dose: 1 patch Finasteride (Finasteride 5 Mg Tab) 5 mg PO DAILY [facility] Stop: 07/18/25 08:59 Last Admin: 06/21/25 08:39 Dose: 5 mg Sodium Chloride (Nss) 1,000 mls @ 15 mls/hr IV .Q24H [facility] Stop: 07/05/25 09:38 Last Admin: 06/21/25 10:34 Dose: 15 mls/hr Lorazepam (Lorazepam 0.5 Mg Tab) 0.5 mg PO TID PRN PRN Reason: Anxiety Stop: 07/20/25 14:04 Last Admin: 06/20/25 23:21 Dose: 0.5 mg Metoprolol Succinate (Metoprolol Succ 25mg Ext Rel Tab) 25 mg PO QAM [facility] Stop: 07/18/25 08:59 Last Admin: 06/21/25 08:39 Dose: 25 mg Miscellaneous (Fentanyl Patch Remove & Waste) 1 each N/A Q3D [facility] Stop: 07/21/25 09:59 Last Admin: 06/21/25 11:17 Dose: 1 each Miscellaneous (Check Fentanyl Patch Placement) 1 each N/A QS [facility] Stop: 07/21/25 15:59 Morphine Sulfate (Morphine Sulfate Skid Worker 30 Mg/30 Ml) 30 mg IV PRN PRN; Protocol PRN Reason: MANAGER GYN Pain Titration Stop: 07/05/25 09:36 Last Admin: 06/21/25 10:36 Dose: 30 mg Morphine Sulfate (Morphine Bolus From Skid Worker) 2 mg IV Q1H PRN PRN Reason: MANAGER GYN pain relief for activity Stop: 07/05/25 09:36 Naloxone HCl (Naloxone Hcl 0.4 Mg/1 Ml Vial/Carp) 0.1 mg IV Q5M PRN PRN Reason: Oversedation/Resp Depression Stop: 07/19/25 16:33 Naloxone HCl (Naloxone Hcl 0.4 Mg/1 Ml Vial/Carp) 0.1 mg IV Q5M PRN; Protocol PRN Reason: Oversedation/Resp Depression Stop: 07/05/25 09:36 Ondansetron HCl (Ondansetron Inj 2 Mg/Ml 2 Ml Vial) 4 mg IV Q4H PRN PRN Reason: Nausea Stop: 07/17/25 18:59 Last Admin: 06/19/25 22:04 Dose: 4 mg Pantoprazole Sodium (Pantoprazole 40 Mg Tab) 40 mg PO BID [facility] Stop: 07/17/25 20:59 Last Admin: 06/21/25 08:39 Dose: 40 mg Polyethylene Glycol (Polyethylene (Miralax) 17 Gm Pack) 17 gm PO DAILY [facility] Stop: 07/18/25 08:59 Last Admin: 06/21/25 08:39 Dose: 17 gm Sennosides (Senna 8.6 Mg Tab) 8.6 mg PO HS [facility] Stop: 07/19/25 20:59 Last Admin: 06/20/25 20:44 Dose: 8.6 mg PG Care Time/CCT Total # of Minutes Spent Total Time Spent with Patient: Total time spent is greater than 50% in coordination of care (as documented) at patient's floor/unit and/or counseling patient: Coding [place] [address] SUB INP/OBS CARE 3/50MIN Patient Type Established History Expanded Problem Focused Exam Expanded Problem Focused Medical Decision Making High Complexity Diagnoses Cancer related pain G89.3 Palliative care by specialist Z51.5 Counseling regarding advanced directives and goals of care Z71.89
[2025-06-22] MEDS: MoRPHine Bolus from PCA IV PRN (03:55)
[2025-06-22 06:49] LABS: Hematocrit (blood only) 38.3 % (42.0-52.0); Hemoglobin 12.6 g/dl (14.0-18.0); Immature Granulocytes # (auto) 0.08 K/uL (0.01-0.20); Immature Granulocytes % (auto) 0.7 %; Mean Corpuscular Hemoglobin 29.7 pg (25.0-34.0); Mean Corpuscular Volume 90.3 fL (80.0-100.0); Platelet Count 279 K/uL (130-400); RDW Standard Deviation 50.4 fL (36.4-46.3); Red Blood Count 4.24 M/uL (4.70-6.10); White Blood Count 12.27 K/ul (4.8-10.8)
[2025-06-22 07:21] LABS: Alanine Aminotransferase 113.0 U/L (7-52); Albumin Globulin Ratio 0.6 (0.9-2); Albumin Level 2.9 gm/dl (3.4-5.0); Alkaline Phosphatase 669.0 U/L (34-104); Anion Gap 6.0 (3-11); Bilirubin,Total 4.7 mg/dl (0.2-1.0); Blood Urea Nitrogen 18.0 mg/dl (6-23); Calcium 9.0 mg/dl (8.6-10.3); Carbon Dioxide 31.0 mmol/L (21-32); Chloride 94.0 mmol/L (98-107); Creatinine Clr Calc Pharmacy 108.0 ml/min; Globulin 4.7 gm/dl (2.5-4.0); Glucose 183.0 mg/dl (70-99(Fasting)); Magnesium 2.3 mg/dl (1.7-2.4); Potassium 5.5 mmol/L (3.5-5.1); Sodium 131.0 mmol/L (136-145); Total Protein 7.6 gm/dl (6.0-8.3)
[2025-06-22] MEDS ORDERED: SODIUM ZIRCONIUM CYCLOSILICATE 10 GM PACKET PO SCH (09:00)
--- NOTE | 2025-06-22 09:26 | XRay Report ---
2 views of the abdomen were obtained Findings: There is moderate severity constipation. There is no sign of bowel obstruction. No renal or ureteral calculi are seen. Surgical clips are seen suggestive of prior cholecystectomy. There is lumbar scoliosis and degenerative disc disease Impression: Constipation Electronically signed by Juan Gloria 06-22-2025 09:26 AM
[2025-06-22] MEDS: SODIUM ZIRCONIUM CYCLOSILICATE 10 GM PACKET PO SCH (10:59)
--- NOTE | 2025-06-22 11:58 | Hospitalist Progress Note ---
Date of Service June 22, 2025 Assessment & Plan (1) Pancreatic mass: (2) Transaminitis: (3) GERD (gastroesophageal reflux disease): (4) Atrial fibrillation: Plan This is a 64 year old gentleman with past medical history of A fib, BPH, mild anemia, DM who presented to the ED recommended by his PCP on 06/17/2025 for back pain. #Pancreatic Mass CTAP/Chest CTA w/ 7.3cm pancreatic mass suggestive of primary adenocarcinoma w/ metastatic disease including pulmonary, pleural, hepatic & lymphatic mets w/ trace likely malignant right sided pleural effusion. MRI/MRCP: limited as unable to tolerate much of exam - primary pancreatic malignancy w/ extensive metastatic disease re-demonstrated. s/p choley, no ductal dilatation. Transaminitis secondary to mass - TB 4.7, AST/ALT 112/113; AP 699- continue to trend. WBC increased to 12.27 Unfortunately liver biopsy unable to be completed on 06/20 secondary to anxiety & pain. --> plan for bx on 06/24 Oncology consulted--> CA 19-9 68,658; tx options following bx include hospice vs systemic therapy vs possible immunotherapy. Palliative care consulted --> code status change, patient would be agreeable to intubation for short time but does not want CPR. Transitioned to PAINT LINE SUPERVISOR 06/21 & increased Fentanyl patch to 25mcg. Pain pump pushed 20 times & got 17 doses over last 24 hours. If LFTS + WBC continue to rise, consider repeating MRI/MRCP given the 1st attempt on 06/19 was unable to be completed secondary to pain/anxiety. #Constipation w/ irregular BM's since starting Ozempic. Hypoactive BS on examination. Obtained KUB w/ moderate constipation - possible etiology of leukocytosis. Miralax increased to TID, continue Senna HS. #Hyperkalemia Overnight, K increased to 5.5 Give Lokelma Low K diet. Repeat in AM #Hyponatremia Na low at 129 at time of admission, Na 131 Urine osmol 477 urine Na <10. #Anxiety Continue Lexapro Added Ativan 0.5mg PO TID for anxiety prn. #Elevated troponin, Demand Ischemia. - resolved. Mildly elevated at 22.9 w/ repeat at 21.2 secondary from demand of panc mass EKG w/o signs of ischemia; endorses no CP. #A fib - Continue on Metoprolol & Dronedarone, follows outpatient w/ cards. HOLD Xarelto for upcoming liver biopsy #GERD - Continue PPI + Pepcid #BPH - Continue Finasteride #Morbid obesity with BMI 40.5 DVT prophylaxis: hold in setting of upcoming bx, MIQUEL stockings added 06/21. Code: full Updated at bedside 06/22. Admission and Anticipated Discharge Date Admission Date: June 17, 2025 José Luis Huang was seen & examined this morning. He was sitting in his chair. Reports his pain was significant overnight but he has been feeling okay so far today. Reports no BM recently. Physical Exam Physical Exam: General: NAD, VS: BP 109/64; P56: R16; T36.5C Resp: normal respiratory effort, lungs clear to auscultation CV: RRR, no murmur Abd: hypoactive bowel sounds, non tender Extremities: Moves all extremities, minimal LE edema. Neuro: A&O x3 Skin: intact, no lesions noted, jaundiced Results & Data Results & Data Vital Signs (Past 12 Hours) Vital Signs Temp Pulse Resp BP BP Pulse Ox O2 Del Method 06/22/25 07:39 Room Air 06/22/25 07:12 36.4 C L 73 18 116/78 91 Room Air 06/22/25 00:12 36.6 C 75 18 126/79 92 Room Air O2 Flow Rate 06/22/25 07:39 2 06/22/25 07:12 06/22/25 00:12 PG Care Time/CCT Total # of Minutes Spent Total Time Spent with Patient: Total time spent is greater than 50% in coordination of care (as documented) at patient's floor/unit and/or counseling patient: Coding Level of Care Code 34765 SUB INP/OBS CARE 3/50MIN Diagnoses Pancreatic mass K86.89 Transaminitis R74.01 GERD (gastroesophageal reflux disease) K21.9 Atrial fibrillation I48.91
[2025-06-22] MEDS: POLYETHYLENE (MIRALAX) 17 GM PACK PO SCH (16:27)
[2025-06-23 07:38] LABS: Hematocrit (blood only) 37.3 % (42.0-52.0); Hemoglobin 12.8 g/dl (14.0-18.0); Immature Granulocytes # (auto) 0.13 K/uL (0.01-0.20); Immature Granulocytes % (auto) 1.1 %; Mean Corpuscular Hemoglobin 30.8 pg (25.0-34.0); Mean Corpuscular Volume 89.7 fL (80.0-100.0); Platelet Count 295 K/uL (130-400); RDW Standard Deviation 52.5 fL (36.4-46.3); Red Blood Count 4.16 M/uL (4.70-6.10); White Blood Count 11.65 K/ul (4.8-10.8)
[2025-06-23 08:01] LABS: INR 1.2 (0.9-1.1); Prothrombin Time 12.8 Seconds (9.0-12.0)
[2025-06-23 08:02] LABS: Alanine Aminotransferase 117.0 U/L (7-52); Albumin Globulin Ratio 0.6 (0.9-2); Albumin Level 3.0 gm/dl (3.4-5.0); Alkaline Phosphatase 719.0 U/L (34-104); Anion Gap 8.0 (3-11); Bilirubin,Total 5.3 mg/dl (0.2-1.0); Blood Urea Nitrogen 25.0 mg/dl (6-23); Calcium 9.2 mg/dl (8.6-10.3); Carbon Dioxide 32.0 mmol/L (21-32); Chloride 92.0 mmol/L (98-107); Creatinine Clr Calc Pharmacy 92.3 ml/min; Globulin 4.8 gm/dl (2.5-4.0); Glucose 179.0 mg/dl (70-99(Fasting)); Magnesium 2.3 mg/dl (1.7-2.4); Potassium 4.3 mmol/L (3.5-5.1); Sodium 132.0 mmol/L (136-145); Total Protein 7.8 gm/dl (6.0-8.3)
--- NOTE | 2025-06-23 11:30 | Hospitalist Progress Note ---
Date of Service June 23, 2025 Assessment & Plan (1) Pancreatic mass: (2) Transaminitis: (3) GERD (gastroesophageal reflux disease): (4) Atrial fibrillation: Plan This is a 64 year old gentleman with past medical history of A fib, BPH, mild anemia, DM who presented to the ED recommended by his PCP on 06/17/2025 for back pain. #Pancreatic Mass CTAP/Chest CTA w/ 7.3cm pancreatic mass suggestive of primary adenocarcinoma w/ metastatic disease including pulmonary, pleural, hepatic & lymphatic mets w/ trace likely malignant right sided pleural effusion. MRI/MRCP: limited as unable to tolerate much of exam - primary pancreatic malignancy w/ extensive metastatic disease re-demonstrated. s/p choley, no ductal dilatation. Transaminitis secondary to mass +hepatic disease- TB 5.3, AST/ALT 127/117; AP 719. WBC decreased to 11.65 Unfortunately liver biopsy unable to be completed on 06/20 secondary to anxiety & pain. --> plan for bx on 06/24, pt may require dose of Ativan prior to biopsy. Did touch base with GI on 06/19 after MRI completed --> Dr. Schwartz reviewed images, notes transaminitis secondary to hepatic disease. Did not visualize any obstruction on imaging & no further procedures could be done from a GI standpoint at our facility. Oncology consulted--> CA 19-9 68,658; tx options following bx include hospice vs systemic therapy vs possible immunotherapy. Palliative care consulted --> Transitioned to MATE FISHING VESSEL 06/21 & Fentanyl patch to 25mcg. #Constipation w/ irregular BM's since starting Ozempic & now opioids contributing to constipation. KUB: moderate constipation - possible etiology of leukocytosis. --> pt did have large BM early AM of 06/23 & WBC downtrending. Miralax BID; continue Senna HS. - adjust as necessary #Hyperkalemia K now stable at 4.3. -continue to monitor s/p 4 doses of Lokelma Low K diet #Hyponatremia Na low at 129 at time of admission, improvement of Na to 132 Urine osmol 477 urine Na <10. #Anxiety Continue Lexapro Added Ativan 0.5mg PO TID for anxiety prn. #Elevated troponin, Demand Ischemia. - resolved. Mildly elevated at 22.9 w/ repeat at 21.2 secondary from demand of panc mass EKG w/o signs of ischemia; endorses no CP. #A fib - Continue on Metoprolol & Dronedarone, follows outpatient w/ cards. HOLD Xarelto for upcoming liver biopsy #GERD - Continue PPI + Pepcid #BPH - Continue Finasteride #Morbid obesity with BMI 40.5 DVT prophylaxis: hold in setting of upcoming bx, JOE stockings added 06/21. Code: conditional - agreeable to intubation but does not want chest compressions. Admission and Anticipated Discharge Date Admission Date: June 17, 2025 José Luis Huang was seen and examined this morning. He is more alert today. Reports he had worsening pain overnight but had been feeling okay so far today. He feels he is hitting his button for morphine less today. We discussed discharge plans & he r eports that he is going to stay at his daughters house upon discharge so he can spend as much time as he can with his family. Discussed liver biopsy tomorrow. He also reports he had a massive BM early this morning. Physical Exam Physical Exam: General: NAD, VS: BP 120/78; P64; T36.5; R16 Resp: normal respiratory effort Extremities: Moves all extremities, joe stockings in place on b/l LE, minimal edema Neuro: A&O x3, pleasant Skin: intact, no lesions noted, jaundiced/scleral icterus present. Results & Data Results & Data Vital Signs (Past 12 Hours) Vital Signs Temp Pulse Resp BP Pulse Ox O2 Del Method O2 Flow Rate 06/23/25 07:44 36.6 C 72 16 113/73 96 Nasal Cannula 3 06/23/25 07:17 Room Air, Nasal Cannula 2 PG Care Time/CCT Total # of Minutes Spent Total Time Spent with Patient: Total time spent is greater than 50% in coordination of care (as documented) at patient's floor/unit and/or counseling patient: Coding Level of Care Code 25980 SUB INP/OBS CARE 3/50MIN Diagnoses Pancreatic mass K86.89 Transaminitis R74.01 GERD (gastroesophageal reflux disease) K21.9 Atrial fibrillation I48.91
[2025-06-23] MEDS: POLYETHYLENE (MIRALAX) 17 GM PACK PO SCH (20:31)
[2025-06-24 06:57] LABS: Hematocrit (blood only) 35.2 % (42.0-52.0); Hemoglobin 12.0 g/dl (14.0-18.0); Mean Corpuscular Hemoglobin 31.0 pg (25.0-34.0); Mean Corpuscular Volume 91.0 fL (80.0-100.0); Platelet Count 261 K/uL (130-400); RDW Standard Deviation 52.5 fL (36.4-46.3); Red Blood Count 3.87 M/uL (4.70-6.10); White Blood Count 11.36 K/ul (4.8-10.8)
[2025-06-24 07:21] LABS: INR 1.2 (0.9-1.1); Prothrombin Time 12.7 Seconds (9.0-12.0)
[2025-06-24 07:23] LABS: Alanine Aminotransferase 116.0 U/L (7-52); Albumin Globulin Ratio 0.6 (0.9-2); Albumin Level 2.9 gm/dl (3.4-5.0); Alkaline Phosphatase 705.0 U/L (34-104); Anion Gap 8.0 (3-11); Bilirubin,Total 5.4 mg/dl (0.2-1.0); Blood Urea Nitrogen 19.0 mg/dl (6-23); Calcium 9.1 mg/dl (8.6-10.3); Carbon Dioxide 35.0 mmol/L (21-32); Chloride 92.0 mmol/L (98-107); Creatinine Clr Calc Pharmacy 109.1 ml/min; Globulin 4.8 gm/dl (2.5-4.0); Glucose 187.0 mg/dl (70-99(Fasting)); Potassium 4.2 mmol/L (3.5-5.1); Sodium 135.0 mmol/L (136-145); Total Protein 7.7 gm/dl (6.0-8.3)
[2025-06-24] MEDS: GELATIN SPONGE 12-7MM ONE (14:15)
[2025-06-24] MEDS: MoRPHine SULFATE 2 MG/ML CARP IV STA (14:16)
--- NOTE | 2025-06-24 15:30 | Palliative Care Progress Note ---
Date of Service June 24, 2025 Assessment & Plan (1) Cancer related pain: Plan: Pt shared pain well managed, he is drowsy but arousable. Pt has had minimal use of AUTO GARAGE ATTENDANT over last 24 hours. Discussed plan to discontinue AUTO GARAGE ATTENDANT today in preparation for discharge home. Pt agreeable to transition to oral analgesia for BTP with continued duragesic for long acting. discontinued AUTO GARAGE ATTENDANT morphine Continue Fentanyl 25 Mcg/Hr 1 patch TD Q3D ZEB Add Oxycodone HCl 5 mg PO Q4H PRN for breakthrough pain (2) Palliative care by specialist: Plan: Palliative care will continue to follow for ongoing symptom management and patient/family support. (3) Counseling regarding advanced directives and goals of care: Plan: pt goals are clearly established for ongoing cancer directed treatment with the hope of prolonging life. Plan for liver biopsy today to develop treatment plan. Plan DNR, okay with short term intubation, pt would like to proceed with biopsy and any life prolonging cancer treatments. Admission and Anticipated Discharge Date Admission Date: June 17, 2025 Subjective pt assessed sitting in chair, he was drowsy but arousable. He shared pain well managed. NAEON. VSS, NAD on RA. no visitors present. Review of Systems Review of Systems: All systems reviewed & are unremarkable except as noted in Subjective Physical Exam Constitutional: WD/WN, vitals as above + ill appearing, + morbidly obese and cooperative Eyes: PERRL, conjunctivae normal, anicteric sclerae Neck: trachea midline, no thyromegaly Respiratory: normal respiratory effort, lungs clear to auscultation Cardiovascular: RRR, no murmur, no edema Gastrointestinal (Abdomen): Inspection/Auscultation: + hypoactive bowel sounds Percussion/Palpation: + abdomen tender (tender along periumbilical area ) and abdomen soft; no guarding, abdomen not rigid and no hepatosplenomegaly Musculoskeletal: no cyanosis or clubbing, extremities motor strength 5/5 Skin: no rashes, warm and dry Neurologic: PERRL, EOMI, accommodation nl, no face palsy, no dysarthria Psychiatric: A+Ox3, euthymic affect Results & Data Vital Signs (Past 12 Hours) Vital Signs Temp Pulse Resp BP Pulse Ox O2 Del Method O2 Flow Rate 06/24/25 07:04 36.6 C 69 16 132/81 98 Nasal Cannula 2 Laboratory Results Abnormal lab results 06/24/25 Range/Units 06:33 WBC 11.36 H (4.8-10.8) K/ul RBC 3.87 L (4.70-6.10) M/uL Hgb 12.0 L (14.0-18.0) g/dl Hct 35.2 L (42.0-52.0) % RDW Std Deviation 52.5 H (36.4-46.3) fL RDW Coeff of Cruzito 15.9 H (11.5-14.5) % PT 12.7 H (9.0-12.0) Seconds INR 1.2 H (0.9-1.1) Sodium 135 L (136-145) mmol/L Chloride 92 L (98-107) mmol/L Carbon Dioxide 35 H (21-32) mmol/L Glucose 187 H (70-99(Fasting)) mg/dl Total Bilirubin 5.4 H (0.2-1.0) mg/dl AST 127 H (13-39) U/L ALT 116 H (7-52) U/L Alkaline Phosphatase 705 H (34-104) U/L Albumin 2.9 L (3.4-5.0) gm/dl Globulin 4.8 H (2.5-4.0) gm/dl Albumin/Globulin Ratio 0.6 L (0.9-2) Diagnostic Findings Abdomen/Pelvis CT 06/17/25 12:43 CT angio chest PE protocol, CT abd pelvis IV con only CT DOSE: 2428.37 mGy.cm HISTORY: 64 years-old Male with PE. Acute short of breath with chest and abdominal pain TECHNIQUE: Multiple CTA images of the chest were obtained after the intravenous administration of 118 ml Optiray. Coronal and sagittal MIPS were obtained from the axial data set and were submitted for review. All measurements were obtained according to NASCET criteria. CT Abdomen and pelvis with IV contrast only also obtained. A dose lowering technique was utilized adhering to the principles of ALARA. COMPARISON: None. FINDINGS: CTA: No central pulmonary emboli are seen. Heart size is normal. Moderate coronary artery calcifications. No pulmonary emboli are seen. CT CHEST: Unremarkable thyroid. Subcentimeter mediastinal and right hilar lymph nodes. No pathologically enlarged lymph nodes are seen. Trace right pleural effusion. No pneumothorax. Irregular bilateral scattered solid pulmonary nodules measure up to approximately 2 cm from the right upper lobe. Several of the nodules are seen within a perifissural distribution. Central airways are patent. Pleural-based nodule the basal right lower lobe on image 60 measures 3.3 cm. Smaller subcentimeter pleural-based nodules are present bilaterally. A subcentimeter epicardial lymph node is seen on image 67. Unremarkable soft tissues. No acute fracture or destructive bone lesion is seen. CT ABDOMEN/PELVIS: No pneumatosis or pneumoperitoneum identified. Unremarkable spleen, and adrenal glands. Cholecystectomy. Scattered ill-defined hypodense liver lesions measuring up to 4.3 cm. Trace perihepatic fluid/hemorrhage on image 164 series 6 (likely secondary to one of the metastatic lesions demonstrating internal hemorrhage). Patent portal vein. Occlusion of the splenic vein. Periportal lymph nodes measure up to 1.3 cm. There is a large infiltrative ill-defined hypodense mass involving the pancreatic body on image 162 series 6 which measures 7.5 x 5.1 x 5.4 cm on image 162 series 6. This abuts the lesser curvature of the stomach and adjacent left hepatic lobe. There is also partial encasement of the splenic artery. This mass does not involve the superior mesenteric artery. No biliary ductal dilation to Unremarkable kidneys without hydronephrosis. Urinary bladder is within normal limits. Atherosclerosis of the aorta. No bowel obstruction or bowel wall thickening. Colonic diverticulosis without acute diverticulitis. No CT evidence of acute appendicitis. Unremarkable soft tissues. No acute fracture or destructive bone lesion identified. IMPRESSION: 1. 7.5 cm pancreatic mass suggestive of primary pancreatic adenocarcinoma with involvement of adjacent structures as above. 2. Metastatic disease of the chest and abdomen includes pulmonary, pleural, hepatic and lymphatic metastasis with trace likely malignant right-sided pleural effusion. 3. No pulmonary emboli. 4. No bowel obstruction or bowel wall thickening. 5. Colonic diverticulosis. ACT 112: Positive. There are findings on this exam that require communication between the performing entity and the patient following Patient Test Result Information Act ([place] Act 112) guidelines. The above report was generated using voice recognition software. It may contain grammatical, syntax or spelling errors. Electronically signed by: Angel Mcguire M.D. 06/17/2025 3:00 PM Chest CTA 06/17/25 12:46 CT angio chest PE protocol, CT abd pelvis IV con only CT DOSE: 2428.37 mGy.cm HISTORY: 64 years-old Male with PE. Acute short of breath with chest and abdominal pain TECHNIQUE: Multiple CTA images of the chest were obtained after the intravenous administration of 118 ml Optiray. Coronal and sagittal MIPS were obtained from the axial data set and were submitted for review. All measurements were obtained according to NASCET criteria. CT Abdomen and pelvis with IV contrast only also obtained. A dose lowering technique was utilized adhering to the principles of ALARA. COMPARISON: None. FINDINGS: CTA: No central pulmonary emboli are seen. Heart size is normal. Moderate coronary a rtery calcifications. No pulmonary emboli are seen. CT CHEST: Unremarkable thyroid. Subcentimeter mediastinal and right hilar lymph nodes. No pathologically enlarged lymph nodes are seen. Trace right pleural effusion. No pneumothorax. Irregular bilateral scattered solid pulmonary nodules measure up to approximately 2 cm from the right upper lobe. Several of the nodules are seen within a perifissural distribution. Central airways are patent. Pleural-based nodule the basal right lower lobe on image 60 measures 3.3 cm. Smaller subcentimeter pleural-based nodules are present bilaterally. A subcentimeter epicardial lymph node is seen on image 67. Unremarkable soft tissues. No acute fracture or destructive bone lesion is seen. CT ABDOMEN/PELVIS: No pneumatosis or pneumoperitoneum identified. Unremarkable spleen, and adrenal glands. Cholecystectomy. Scattered ill-defined hypodense liver lesions measuring up to 4.3 cm. Trace perihepatic fluid/hemorrhage on image 164 series 6 (likely secondary to one of the metastatic lesions demonstrating internal hemorrhage). Patent portal vein. Occlusion of the splenic vein. Periportal lymph nodes measure up to 1.3 cm. There is a large infiltrative ill-defined hypodense mass involving the pancreatic body on image 162 series 6 which measures 7.5 x 5.1 x 5.4 cm on image 162 series 6. This abuts the lesser curvature of the stomach and adjacent left hepatic lobe. There is also partial encasement of the splenic artery. This mass does not involve the superior mesenteric artery. No biliary ductal dilation to Unremarkable kidneys without hydronephrosis. Urinary bladder is within normal limits. Atherosclerosis of the aorta. No bowel obstruction or bowel wall thickening. Colonic diverticulosis without acute diverticulitis. No CT evidence of acute appendicitis. Unremarkable soft tissues. No acute fracture or destructive bone lesion identified. IMPRESSION: 1. 7.5 cm pancreatic mass suggestive of primary pancreatic adenocarcinoma with involvement of adjacent structures as above. 2. Metastatic disease of the chest and abdomen includes pulmonary, pleural, hepatic and lymphatic metastasis with trace likely malignant right-sided pleural effusion. 3. No pulmonary emboli. 4. No bowel obstruction or bowel wall thickening. 5. Colonic diverticulosis. ACT 112: Positive. There are findings on this exam that require communication between the performing entity and the patient following Patient Test Result Information Act ([place] Act 112) guidelines. The above report was generated using voice recognition software. It may contain grammatical, syntax or spelling errors. Electronically signed by: Angel Mcguire M.D. 06/17/2025 3:00 PM Cholangiopancreatography MRI 06/19/25 08:16 MR MRCP HISTORY: 64 years-old Male pancreatic mass, eval for ductal obstruction pancreatic malignancy with extensive metastatic disease COMPARISON: CT abdomen and pelvis 06/17/2025 TECHNIQUE: MRCP was obtained without IV contrast. Only the therapist physical localizer images and coronal chest images were able to be obtained, the study was then aborted secondary to patient pain and discomfort, notably with supine positioning. FINDINGS: Pulmonary, pleural, hepatic lymphatic metastasis redemonstrated with large infiltrative 7.5 cm pancreatic mass again noted. As previously discussed, there is prior cholecystectomy without biliary invasion, biliary ductal dilation, stricture or choledocholithiasis identified on these images. The common bile duct measures 6 mm transversely. No definite pancreatic ductal dilation identified on these images. Probable tiny side branch IPMN's of the pancreatic head/uncinate process measuring up to 4 mm. Soft tissue fullness of the uncinate process. No bowel obstruction or bowel wall thickening identified. No hydronephrosis. IMPRESSION: 1. Very limited study as the patient was unable to tolerate the entire MRCP exam. 2. Primary pancreatic malignancy with extensive metastatic disease redemonstrated. 3. Cholecystectomy without biliary ductal dilation. ACT 112: Negative or not required by law. The above report was generated using voice recognition software. It may contain grammatical, syntax or spelling errors. Electronically signed by: Angel Mcguire M.D. 06/19/2025 12:29 PM Chest X-Ray 06/20/25 09:53 XR chest 1V not portable CLINICAL HISTORY: chest pain COMPARISON STUDY: 06/17/2025 FINDINGS: Heart size and pulmonary vasculature are normal. No consolidation or pleural effusion. No pneumothorax. IMPRESSION: No acute findings. ACT 112: Negative or not required by law. Electronically signed by: Alex García M.D. 06/20/2025 11:30 AM KUB X-Ray 06/22/25 08:28 2 views of the abdomen were obtained Findings: There is moderate severity constipation. There is no sign of bowel obstruction. No renal or ureteral calculi are seen. Surgical clips are seen suggestive of prior cholecystectomy. There is lumbar scoliosis and degenerative disc disease Impression: Constipation Electronically signed by Juan Gloria 06-22-2025 09:26 AM Medications Administered Current Inpatient Medications Dronedarone (Dronedarone Hcl 400 Mg Tab) 400 mg PO BID ZEB Stop: 07/17/25 20:59 Last Admin: 06/24/25 09:07 Dose: 400 mg Escitalopram Oxalate (Escitalopram Oxalate 10 Mg Tab) 10 mg PO QAM ZEB Stop: 07/18/25 08:59 Last Admin: 06/24/25 09:08 Dose: 10 mg Famotidine (Famotidine 40 Mg Tablet) 40 mg PO QAM ZEB Stop: 07/18/25 08:59 Last Admin: 06/24/25 09:08 Dose: 40 mg Fentanyl (Fentanyl 25 Mcg/Hr Tdsy) 1 patch TD Q3D ZEB Stop: 07/05/25 09:59 Last Admin: 06/24/25 09:34 Dose: 1 patch Finasteride (Finasteride 5 Mg Tab) 5 mg PO DAILY ZEB Stop: 07/18/25 08:59 Last Admin: 06/24/25 09:08 Dose: 5 mg Lorazepam (Lorazepam 0.5 Mg Tab) 0.5 mg PO TID PRN PRN Reason: Anxiety Stop: 07/20/25 14:04 Last Admin: 06/23/25 23:43 Dose: 0.5 mg Metoprolol Succinate (Metoprolol Succ 25mg Ext Rel Tab) 25 mg PO QAM ZEB Stop: 07/18/25 08:59 Last Admin: 06/24/25 09:07 Dose: 25 mg Miscellaneous (Fentanyl Patch Remove & Waste) 1 each N/A Q3D ZEB Stop: 07/21/25 09:59 Last Admin: 06/24/25 09:34 Dose: 1 each Miscellaneous (Check Fentanyl Patch Placement) 1 each N/A QS ZEB Stop: 07/21/25 15:59 Last Admin: 06/24/25 09:06 Dose: 1 each Naloxone HCl (Naloxone Hcl 0.4 Mg/1 Ml Vial/Carp) 0.1 mg IV Q5M PRN PRN Reason: Oversedation/Resp Depression Stop: 07/19/25 16:33 Naloxone HCl (Naloxone Hcl 0.4 Mg/1 Ml Vial/Carp) 0.1 mg IV Q5M PRN; Protocol PRN Reason: Oversedation/Resp Depression Stop: 07/05/25 09:36 Ondansetron HCl (Ondansetron Inj 2 Mg/Ml 2 Ml Vial) 4 mg IV Q4H PRN PRN Reason: Nausea Stop: 07/17/25 18:59 Last Admin: 06/23/25 16:37 Dose: 4 mg Oxycodone HCl (Oxycodone Hcl Ir 5 Mg Tab (Immediate Release)) 5 mg PO Q4H PRN PRN Reason: Breakthrough Pain Stop: 07/08/25 13:20 Pantoprazole Sodium (Pantoprazole 40 Mg Tab) 40 mg PO BID ZEB Stop: 07/17/25 20:59 Last Admin: 06/24/25 09:07 Dose: 40 mg Polyethylene Glycol (Polyethylene (Miralax) 17 Gm Pack) 17 gm PO BID ZEB Stop: 07/23/25 20:59 Last Admin: 06/24/25 13:08 Dose: 17 gm Sennosides (Senna 8.6 Mg Tab) 8.6 mg PO HS ZEB Stop: 07/19/25 20:59 Last Admin: 06/23/25 20:31 Dose: 8.6 mg PG Care Time/CCT Total # of Minutes Spent Total Time Spent with Patient: Total time spent is greater than 50% in coordination of care (as documented) at patient's floor/unit and/or counseling patient: Coding Level of Care Code 82937 SUB INP/OBS CARE 2/35MIN Diagnoses Cancer related pain G89.3 Palliative care by specialist Z51.5 Counseling regarding advanced directives and goals of care Z71.89
--- NOTE | 2025-06-24 23:36 | Hospitalist Progress Note ---
Date of Service June 24, 2025 Assessment & Plan (1) Pancreatic mass: (2) Transaminitis: (3) GERD (gastroesophageal reflux disease): (4) Atrial fibrillation: Plan This is a 64 year old gentleman with past medical history of A fib, BPH, mild anemia, DM who presented to the ED recommended by his PCP on 06/17/2025 for back pain. #Pancreatic Mass CTAP/Chest CTA w/ .3cm pancreatic mass suggestive of primary adenocarcinoma w/ metastatic disease including pulmonary, pleural, hepatic & lymphatic mets w/ trace likely malignant right sided pleural effusion. MRI/MRCP: limited as unable to tolerate much of exam - primary pancreatic malignancy w/ extensive metastatic disease re-demonstrated. s/p choley, no ductal dilatation. Transaminitis secondary to mass +hepatic disease- TB 5.3, AST/ALT 127/117; AP 719. WBC decreased to 11.65 Unfortunately liver biopsy unable to be completed on 06/20 secondary to anxiety & pain. --> plan for bx on 06/24, pt may require dose of Ativan prior to biopsy. Did touch base with GI on 06/19 after MRI completed --> Dr. Schwartz reviewed images, notes transaminitis secondary to hepatic disease. Did not visualize any obstruction on imaging & no further procedures could be done from a GI standpoint at our facility. Oncology consulted--> CA 19-9 68,658; tx options following bx include hospice vs systemic therapy vs possible immunotherapy. Palliative care consulted --> Transitioned to LICENSED NUCLEAR CONTROL ROOM OPERATOR 06/21 & Fentanyl patch to 25mcg. Unable to get biospy on 06/24, will repeat on 06/25 but under anesthesia. given worsening liver function tests will consult GI as concern patient may need a biliary stent. #Constipation w/ irregular BM's since starting Ozempic & now opioids contributing to constipation. KUB: moderate constipation - possible etiology of leukocytosis. --> pt did have large BM early AM of 06/23 & WBC downtrending. Miralax BID; continue Senna HS. - adjust as necessary #Hyperkalemia K now stable at 4.3. -continue to monitor s/p 4 doses of Lokelma Low K diet #Hyponatremia Na low at 129 at time of admission, improvement of Na to 132 Urine osmol 477 urine Na <10. #Anxiety Continue Lexapro Added Ativan 0.5mg PO TID for anxiety prn. #Elevated troponin, Demand Ischemia. - resolved. Mildly elevated at 22.9 w/ repeat at 21.2 secondary from demand of panc mass EKG w/o signs of ischemia; endorses no CP. #A fib - Continue on Metoprolol & Dronedarone, follows outpatient w/ cards. HOLD Xarelto for upcoming liver biopsy #GERD - Continue PPI + Pepcid #BPH - Continue Finasteride #Morbid obesity with BMI 40.5 DVT prophylaxis: hold in setting of upcoming bx, JOE stockings added 06/21. Code: conditional - agreeable to intubation but does not want chest compressions. Admission and Anticipated Discharge Date Admission Date: June 17, 2025 Subjective Patient reports no new symptoms. Patient appears more drowsy. Physical Exam Physical Exam: General: NAD, VS: BP 120/78; P64; T36.5; R16 Resp: normal respiratory effort Extremities: Moves all extremities, joe stockings in place on b/l LE, minimal edema Neuro: A&O x3, pleasant Skin: intact, no lesions noted, jaundiced/scleral icterus present. Results & Data Results & Data Vital Signs (Past 12 Hours) Vital Signs Temp Pulse Resp BP Pulse Ox O2 Del Method O2 Flow Rate 06/24/25 20:30 Nasal Cannula 2 06/24/25 15:20 36.3 C L 61 16 112/74 92 Room Air PG Care Time/CCT Total # of Minutes Spent Total Time Spent with Patient: Total time spent is greater than 50% in coordination of care (as documented) at patient's floor/unit and/or counseling patient: Coding Level of Care Code 47590 SUB INP/OBS CARE 3/50MIN Diagnoses Pancreatic mass K86.89 Transaminitis R74.01 GERD (gastroesophageal reflux disease) K21.9 Atrial fibrillation I48.91
[2025-06-25 07:31] LABS: Hematocrit (blood only) 36.1 % (42.0-52.0); Hemoglobin 12.3 g/dl (14.0-18.0); Mean Corpuscular Hemoglobin 30.6 pg (25.0-34.0); Mean Corpuscular Volume 89.8 fL (80.0-100.0); Platelet Count 256 K/uL (130-400); RDW Standard Deviation 53.1 fL (36.4-46.3); Red Blood Count 4.02 M/uL (4.70-6.10); White Blood Count 11.02 K/ul (4.8-10.8)
[2025-06-25 07:52] LABS: Alanine Aminotransferase 108 U/L (7-52); Albumin Globulin Ratio 0.6 (0.9-2); Albumin Level 2.8 gm/dl (3.4-5.0); Alkaline Phosphatase 685 U/L (34-104); Anion Gap 6 (3-11); Bilirubin,Total 5.9 mg/dl (0.2-1.0); Blood Urea Nitrogen 17 mg/dl (6-23); Calcium 9.0 mg/dl (8.6-10.3); Carbon Dioxide 33 mmol/L (21-32); Chloride 93 mmol/L (98-107); Creatinine Clr Calc Pharmacy 114.9 ml/min; Globulin 4.6 gm/dl (2.5-4.0); Glucose 185 mg/dl (70-99(Fasting)); Sodium 132 mmol/L (136-145); Total Protein 7.4 gm/dl (6.0-8.3)
[2025-06-25 08:54] LABS: Potassium 4.1 mmol/L (3.5-5.1)
[2025-06-25] MEDS ORDERED: ATROPINE SULFATE 0.1 MG/ML 10ML SYR IV PRN (08:57)
[2025-06-25] MEDS ORDERED: ONDANSETRON INJ 2 MG/ML 2 ML VIAL IV PRN (08:57)
--- NOTE | 2025-06-25 09:05 | Anesthesiology Consultation ---
Date of Service June 25, 2025 Assessment & Plan (1) Encounter for pre-operative examination: Chart Review Chart Review: Acceptable Risk for Surgery and Patient NOT seen in Pre Admission Testing Consults Requested none History Surgery Operation Date: 06/25/25 09:50 Proposed Procedures p Ultrasound Liver Biopsy with Anesthesia Sedation - Claudio Arnold PA-C Height/Weight Height: 6 ft 1 in Weight: 139.253 kg Allergies Allergy/AdvReac Type Severity Reaction Status Date / Time No Known Drug Allergies Allergy Verified 06/17/25 11:34 Medications Home Medications Medication Instructions Recorded Confirmed Last Taken vit 2 tab PO QAM 02/27/21 06/17/25 Unknown [id number] 500 mg-50 mg-25 mg-40 mg tablet (Bioflex) escitalopram oxalate 10 mg tablet 10 mg PO QAM #90 tabs 09/04/24 06/17/25 Unknown finasteride 5 mg tablet 5 mg PO DAILY #90 tabs 09/05/24 06/17/25 Unknown metoprolol succinate 25 mg 25 mg PO QAM #90 tabs 09/05/24 06/17/25 Unknown tablet,extended release 24 hr rivaroxaban 20 mg tablet (Xarelto) 20 mg PO QPM #90 tabs 09/25/24 06/17/25 Unknown esomeprazole magnesium 20 mg 20 mg PO BID #180 caps 01/30/25 06/17/25 Unknown capsule,delayed release dronedarone 400 mg tablet (Multaq) 400 mg PO BID #180 tabs 03/18/25 06/17/25 Unknown famotidine 40 mg tablet 40 mg PO QAM #90 tabs 03/20/25 06/17/25 Unknown Active Medications Generic Name Dose Route Start Last Admin Trade Name Freq PRN Reason Stop Dose Admin Dronedarone 400 mg 06/17/25 21:00 06/24/25 20:04 Dronedarone Hcl 400 Mg Tab PO 07/17/25 20:59 400 mg BID ZEB Administration Escitalopram Oxalate 10 mg 06/18/25 09:00 06/24/25 09:08 Escitalopram Oxalate 10 Mg Tab PO 07/18/25 08:59 10 mg QAM ZEB Administration Famotidine 40 mg 06/18/25 09:00 06/24/25 09:08 Famotidine 40 Mg Tablet PO 07/18/25 08:59 40 mg QAM ZEB Administration Fentanyl 1 patch 06/21/25 10:00 06/24/25 09:34 Fentanyl 25 Mcg/Hr Tdsy TD 07/05/25 09:59 1 patch Q3D ZEB Administration Finasteride 5 mg 06/18/25 09:00 06/24/25 09:08 Finasteride 5 Mg Tab PO 07/18/25 08:59 5 mg DAILY ZEB Administration Lorazepam 0.5 mg 06/20/25 14:05 06/23/25 23:43 Lorazepam 0.5 Mg Tab PO 07/20/25 14:04 0.5 mg TID PRN Administration Anxiety Metoprolol Succinate 25 mg 06/18/25 09:00 06/24/25 09:07 Metoprolol Succ 25mg Ext Rel Tab PO 07/18/25 08:59 25 mg QAM ZEB Administration Miscellaneous 1 each 06/21/25 10:00 06/24/25 09:34 Fentanyl Patch Remove & Waste N/A 07/21/25 09:59 1 each Q3D ZEB Administration Miscellaneous 1 each 06/21/25 16:00 06/25/25 00:01 Check Fentanyl Patch Placement N/A 07/21/25 15:59 1 each QS ZEB Administration Ondansetron HCl 4 mg 06/17/25 19:00 06/23/25 16:37 Ondansetron Inj 2 Mg/Ml 2 Ml Vial IV 07/17/25 18:59 4 mg Q4H PRN Administration Nausea Oxycodone HCl 5 mg 06/24/25 13:21 06/25/25 06:23 Oxycodone Hcl Ir 5 Mg Tab (Immediate Release) PO 07/08/25 13:20 5 mg Q4H PRN Administration Breakthrough Pain Pantoprazole Sodium 40 mg 06/17/25 21:00 06/24/25 20:04 Pantoprazole 40 Mg Tab PO 07/17/25 20:59 40 mg BID ZEB Administration Polyethylene Glycol 17 gm 06/23/25 21:00 06/24/25 20:04 Polyethylene (Miralax) 17 Gm Pack PO 07/23/25 20:59 Not Given BID ZEB Sennosides 8.6 mg 06/19/25 21:00 06/24/25 20:04 Senna 8.6 Mg Tab PO 07/19/25 20:59 8.6 mg HS ZEB Administration Past Medical History Medical History (Updated 06/25/25 @ 09:05 by Alexey Will MD) Atrial fibrillation Sleep apnea Morbid (severe) obesity due to excess calories Mass of pancreas History of cardioversion 06/17/22, [place]; f/u dr rosent[place], [place]; [place] GERD (gastroesophageal reflux disease) ADD (attention deficit disorder) Anxiety and depression History of COVID-19 03/23/22>home test *a-fib occured Sleep apnea cpap used #Pancreatic Mass CTAP/Chest CTA w/ 7.3cm pancreatic mass suggestive of primary adenocarcinoma w/ metastatic disease including pulmonary, pleural, hepatic & lymphatic mets w/ trace likely malignant right sided pleural effusion. MRI/MRCP: limited as unable to tolerate much of exam - primary pancreatic malignancy w/ extensive metastatic disease re-demonstrated. s/p choley, no ductal dilatation. Transaminitis secondary to mass +hepatic disease- TB 5.3, AST/ALT 127/117; AP 719. WBC decreased to 11.65 Unfortunately liver biopsy unable to be completed on 06/20 secondary to anxiety & pain. --> plan for bx on 06/24, pt may require dose of Ativan prior to biopsy. DNR, okay with short term intubation, pt would like to proceed with biopsy and any life prolonging cancer treatments. Past Family History Family History Brother History of kidney cancer Unknown Diabetes Hypertension Father Stroke Mother Stroke Other No family history of adverse response to anesthesia Denies family history of Colon cancer Ovarian cancer Prostate cancer Myocardial infarction Breast cancer Past Surgical History Surgical History History of cardiac radiofrequency ablation 09/2022, [facility] [place]; f/u Dr. Castro, [place] History of tooth extraction Hx of LASIK Hx of cholecystectomy H/O hernia repair Social History Smoking Status: Never smoker Do You Dip or Chew Tobacco: No Hx Alcohol Use: Yes Alcohol type: hard liquor alcohol intake frequency: holidays/special occasions only Hx Substance Use: No substance use type: does not use Physical Exam Vital Signs Last Vital Signs Temp 36.6 C 06/25/25 07:46 Pulse 72 06/25/25 07:46 Resp 17 06/25/25 07:46 BP 121/79 06/25/25 07:46 Pulse Ox 98 06/25/25 07:46 O2 Del Method Nasal Cannula 06/25/25 07:46 O2 Flow Rate 2 06/25/25 07:46 Testing Laboratory Results 06/25/25 07:07 06/25/25 08:09 PT 12.7 Seconds (9.0-12.0) H 06/24/25 06:33 INR 1.2 (0.9-1.1) H 06/24/25 06:33 APTT 31 Seconds (21-31) 06/17/25 12:58 Urine Color Dark Yellow 06/18/25 Unknown Urine Appearance Clear (Clear) 06/18/25 Unknown Urine pH 6.0 (4.5-7.5) 06/18/25 Unknown Ur Specific Neal 1.031 (1.000-1.030) H 06/18/25 Unknown Urine Protein 1+ (Negative) H 06/18/25 Unknown Urine Glucose (UA) Negative (Negative) 06/18/25 Unknown Urine Ketones Negative (Negative) 06/18/25 Unknown Urine Nitrite Negative (Negative) 06/18/25 Unknown Ur Leukocyte Esterase Trace (Negative) H 06/18/25 Unknown Urine WBC (Auto) 0-5 /hpf (0-5) 06/18/25 Unknown Urine RBC (Auto) 3-5 /hpf (0-2) H 06/18/25 Unknown U Hyaline Cast (Auto) 3-5 /lpf (0-2) H 06/18/25 Unknown U Epithel Cells (Auto) 11-20 /hpf (0-2) H 06/18/25 Unknown Urine Bacteria (Auto) None Seen (None Seen) 06/18/25 Unknown Electrocardiogram Date: 06/17/25 DICTATED BY: Floyd Rosenthal MD Test Reason : Blood Pressure : */* mmHG Vent. Rate : 66 BPM Atrial Rate : 66 BPM P-R Int : 188 ms QRS Dur : 86 ms QT Int : 464 ms P-R-T Axes : 65 19 63 degrees QTcB Int : 486 ms Normal sinus rhythm Nonspecific ST abnormality When compared with ECG of 17-Jun-2025 12:56, T wave inversion no longer evident in Lateral leads QT has lengthened Confirmed by Floyd Rosenthal ([id number]) on 06/20/2025 6:14:10 PM Chest X-Ray Date: 06/20/25 XR chest 1V not portable CLINICAL HISTORY: chest pain COMPARISON STUDY: 06/17/2025 FINDINGS: Heart size and pulmonary vasculature are normal. No consolidation or pleural effusion. No pneumothorax. IMPRESSION: No acute findings.
[2025-06-25] MEDS ORDERED: MIDAZOLAM HCL 1 MG/ML 2ML VIAL ONE (09:56)
[2025-06-25] MEDS ORDERED: KETAMINE HCL 10MG/ML SYR ONE (10:10)
--- NOTE | 2025-06-25 10:23 | Gastrointestinal Consultation ---
Date of Consultation June 25, 2025 Assessment & Plan (1) Transaminitis: On 06/19/25, GI was contacted by Sisi Ambriz PA-C of the Hospitalists to review this patient's MRCP to see if there was a role for biliary stenting. Dr. Schwartz reviewed MRCP imaging and advised that there was no role for stenting. GI has been formally re-engaged to determine if there is a role for palliative biliary stenting. Discussed with Dr. Lopez who also reviewed the imaging. The MRCP indicates that the extrahepatic biliary tree is normal. Patient does have liver mets likely leading to intrahepatic picture of his LFT elevation. There is no role for biliary stenting at present. Continue to monitor LFTs and for clinical changes. Supervising Physician Co-Signing Physician Notes I saw and examined this patient with our nurse practitioner and agree with her assessment and plan. Based on MRI imaging do not feel that ERCP with endoscopic stenting is warranted at this time. Likely abnormal LFTs related to known metastatic liver disease. If bilirubin continues to rise significantly could consider repeat imaging with better images to reassess extrahepatic biliary tree. History of Present Illness Reason for Consultation: worsening LFT/ palliative biliary stent? Attending Physician: Justice Egan History of Present Illness Patient currently undergoing a liver biopsy during the time of rounds Patient is a 64 yo male with PMH of A fib, BPH, mild anemia, and DM who presented with back pain. He was found to have a 7.5 cm pancreatic mass suggestive of primary adenocarcinoma with metastatic disease including pulmonary, pleural, hepatic, and lymphatic mets with trace likely malignant right-sided pleural effusion. He is undergoing an IR guided liver biopsy today. T bili 5.9, AST 123, ALT 108, Alk phos 685. MRCP: FINDINGS: Pulmonary, pleural, hepatic lymphatic metastasis redemonstrated with large infiltrative 7.5 cm pancreatic mass again noted. As previously discussed, there is prior cholecystectomy without biliary invasion, biliary ductal dilation, stricture or choledocholithiasis identified on these images. The common bile duct measures 6 mm transversely. No definite pancreatic ductal dilation identified on these images. Probable tiny side branch IPMN's of the pancreatic head/uncinate process measuring up to 4 mm. Soft tissue fullness of the uncinate process. No bowel obstruction or bowel wall thickening identified. No hydronephrosis. IMPRESSION: 1. Very limited study as the patient was unable to tolerate the entire MRCP exam. 2. Primary pancreatic malignancy with extensive metastatic disease redemonstrated. 3. Cholecystectomy without biliary ductal dilation. On 06/19/25, GI was contacted by Sisi Ambriz PA-C of the Hospitalists to review this patient's MRCP to see if there was a role for biliary stenting. Dr. Schwartz reviewed and advised that there was no role for stenting. GI has been contacted again to see if there is a role for palliative biliary stenting. Allergies Allergy/AdvReac Type Severity Reaction Status Date / Time No Known Drug Allergies Allergy Verified 06/17/25 11:34 Home Medications Medication Instructions Recorded Confirmed Type vit 2 tab PO QAM 02/27/21 06/17/25 History [id number] 500 mg-50 mg-25 mg-40 mg tablet (Bioflex) escitalopram oxalate 10 mg tablet 10 mg PO QAM #90 tabs 09/04/24 06/17/25 Rx finasteride 5 mg tablet 5 mg PO DAILY #90 tabs 09/05/24 06/17/25 Rx metoprolol succinate 25 mg 25 mg PO QAM #90 tabs 09/05/24 06/17/25 Rx tablet,extended release 24 hr rivaroxaban 20 mg tablet (Xarelto) 20 mg PO QPM #90 tabs 09/25/24 06/17/25 Rx esomeprazole magnesium 20 mg 20 mg PO BID #180 caps 01/30/25 06/17/25 Rx capsule,delayed release dronedarone 400 mg tablet (Multaq) 400 mg PO BID #180 tabs 03/18/25 06/17/25 Rx famotidine 40 mg tablet 40 mg PO QAM #90 tabs 03/20/25 06/17/25 Rx Patient History Medical History Atrial fibrillation Sleep apnea Morbid (severe) obesity due to excess calories Mass of pancreas History of cardioversion 06/17/[place], [place]; f/u dr ellison, [place]; [place], [place] GERD (gastroesophageal reflux disease) ADD (attention deficit disorder) Anxiety and depression History of COVID-19 03/23/22>home test *a-fib occured Sleep apnea cpap used Surgical History History of cardiac radiofrequency ablation 09/2022, [facility] – [place]; f/u Dr. Castro, [place] History of tooth extraction Hx of LASIK Hx of cholecystectomy H/O hernia repair Family History Brother History of kidney cancer Unknown Diabetes Hypertension Father Stroke Mother Stroke Other No family history of adverse response to anesthesia Denies family history of Colon cancer Ovarian cancer Prostate cancer Myocardial infarction Breast cancer Social History Smoking Status: Never smoker Second Hand Exposure: Yes (HX CHILD); Do You Dip or Chew Tobacco: No; Hx Alcohol Use: Yes Alcohol type: hard liquor Hx Substance Use: No Preferred Language: Luxembourgish Communication Ability: Effective Visual Impairment: No Limitations Hearing Ability: Normal [place] Required: No Beliefs That Will Affect Care: Baptist Baptist Beliefs: nixon hickey marital status: Current Living Situation: Spouse current occupational status: employed 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 Feels Safe at Home: Yes Childhood Exposure to Second-Hand Smoke: Yes Dental Care, Regularly: Yes Physical Activity Frequency: 1-2 Times per Week Seatbelt Use: always Sunscreen Use: Yes Assistive Devices: CPAP and Walker Results & Data Vital Signs (Past 12 Hours) Vital Signs Temp Pulse Resp BP BP Pulse Ox O2 Del Method 06/25/25 09:36 36.5 C 77 18 141/77 H 95 Room Air 06/25/25 07:46 36.6 C 72 17 121/79 98 Nasal Cannula 06/24/25 23:40 36.8 C 68 18 125/72 97 Nasal Cannula O2 Flow Rate 06/25/25 09:36 06/25/25 07:46 2 06/24/25 23:40 2 PG Care Time/CCT Total # of Minutes Spent Total Time Spent with Patient: Total time spent is greater than 50% in coordination of care (as documented) at patient's floor/unit and/or counseling patient: Coding Level of Care Code 25071 INT INP/OBS CARE MIN Diagnoses Transaminitis R74.01
[2025-06-25] MEDS ORDERED: PROPOFOL IV EMULSION 10 MG/ML 20 ML VIAL IV ONE (10:24)
[2025-06-25 10:57] VITALS: TEMP 97.5
--- NOTE | 2025-06-25 14:26 | Ultrasound Report ---
Ultrasound guided liver lesion core biopsy INDICATION: Pancreatic mass with multiple hepatic lesions PROCEDURE: Procedure and risks were explained. Informed consent was obtained. A final timeout was com pleted. The abdomen was prepped and draped in sterile fashion. 1% lidocaine was utilized for skin ane sthesia. The patient received monitored anesthesia care during the procedure. Utilizing ultrasound guidance, a 17-gauge coaxial needle was advanced into the right lobe liver lesio n. Ultrasound images were obtained. An 18-gauge core biopsy needle was advanced, and 2 cores were obt ained and sent to the lab. The coaxial needle was removed and Band-Aid applied. The patient tolerated the procedure well. Vital signs be monitored postprocedure. IMPRESSION: Right lobe liver lesion core biopsy as above. Performed, dictated, and signed by Claudio Arnold PA-C; to be co-signed by Dr. Alex García. Electronically signed by: Alex García M.D. 06/25/2025 3:12 PM
[2025-06-25 15:10] VITALS: BP 123/74; PULSE 73; RESP 18; O2SAT 91
--- NOTE | 2025-06-25 17:48 | Discharge Summary ---
Discharge Summary Date of Service June 25, 2025 Principal Dx & Hospital Course #1 = Principal Diagnosis (1) Pancreatic mass: (2) Transaminitis: (3) GERD (gastroesophageal reflux disease): (4) Atrial fibrillation: Plan This is a 64 year old gentleman with past medical history of A fib, BPH, mild anemia, DM who presented to the ED recommended by his PCP on 06/17/2025 for back pain. #Pancreatic Mass CTAP/Chest CTA w/ 7.3cm pancreatic mass suggestive of primary adenocarcinoma w/ metastatic disease including pulmonary, pleural, hepatic & lymphatic mets w/ trace likely malignant right sided pleural effusion. MRI/MRCP: limited as unable to tolerate much of exam - primary pancreatic malignancy w/ extensive metastatic disease re-demonstrated. s/p choley, no ductal dilatation. Transaminitis secondary to mass +hepatic disease- TB 5.3, AST/ALT 127/117; AP 719. WBC decreased to 11.65 Unfortunately liver biopsy unable to be completed on 06/20 secondary to anxiety & pain. --> plan for bx on 06/24, pt may require dose of Ativan prior to biopsy. Did touch base with GI on 06/19 after MRI completed --> Dr. Schwartz reviewed images, notes transaminitis secondary to hepatic disease. Did not visualize any obstruction on imaging & no further procedures could be done from a GI standpoint at our facility. Oncology consulted--> CA 19-9 68,658; tx options following bx include hospice vs systemic therapy vs possible immunotherapy. Palliative care consulted GI is not concerned for need of biliary stent, LFTs likely from liver mets. Awaiting biopsy results. Patient is agreeable to discharge as prince appears controlled. Pain meds noted below #Constipation w/ irregular BM's since starting Ozempic & now opioids contributing to constipation. KUB: moderate constipation - possible etiology of leukocytosis. --> pt did have large BM early AM of 06/23 & WBC downtrending. COnstipation meds noted below in discharge instructions. #Hyperkalemia K now stable at 4.3. -continue to monitor s/p 4 doses of Lokelma Low K diet; diet information given to patient. #Hyponatremia Na low at 129 at time of admission, improvement of Na to 132 Urine osmol 477 urine Na <10. #Anxiety Continue Lexapro Added Ativan 0.5mg PO TID for anxiety prn. #Elevated troponin, Demand Ischemia. - resolved. Mildly elevated at 22.9 w/ repeat at 21.2 secondary from demand of panc mass EKG w/o signs of ischemia; endorses no CP. #A fib - Continue on Metoprolol & Dronedarone, follows outpatient w/ cards. HOLD Xarelto for upcoming liver biopsy #GERD - Continue PPI + Pepcid #BPH - Continue Finasteride #Morbid obesity with BMI 40.5 Admission HPI Per Admitting Provider This is a 64 year old gentleman with past medical history of A fib, BPH, mild anemia, DM who presented to the ED recommended by his PCP on 06/17/2025 for back pain. Sal was seen & examined this afternoon. He reports that he has been having ongoing back pain for months but has also developed abdominal bloating/distention, n/v, and decreased appetite. His GI symptoms began after starting Ozempic but did not resolve when stopping the medication. He reports he has been off the medication for a few weeks now with no relief. He reports little sleep at night secondary to his GI symptoms + back pain. He went to his PCP today who referred him to the ED for further care. He reports shortness of breath with activity which is a newer symptom for him. He denies any CP. Denies any lower extremity edema. He states he has been defecating up to 25 times a day because every time he feels he passes gas he will pass some stool. He reports occasionally he will have diarrhea and other times he will have stools like a type 1 on the bristol stool chart. He reports feeling nauseous and has vomited a few times. He reports that last August his weight was in the 380s. When starting Ozempic it was in the 340s and is now down to about 307. He denies any fevers or chills. He does report that he has been using Tylenol for pain. He states he has been using 2 extra strength tablets every 4-6 hours to help with pain but it is not effective. He did report the morphine did help his pain at time of presentation. While in the ED he underwent a chest CTA and CTAP that was concerning for a 7.5cm pancreatic mass suggestive of primary adenocarcinoma w/ metastatic disease including pulmonary, plerual, hepatic, and lymphatic mets w/ trace likely malignant right-sided pleural effusion. No PE. CXR was negative. CBC w/ WBC mild ly elevated at 11, hgb mildly low at 13. INR elevated at 1.4. CMP w/ Na of 129, TB 3.0, DB 1.7, AST/ALT 78/113, AP 473. Trop mildly elevated at 22.9. APAP level pending. Code discussion did take place with the patient & he wishes to stay a full code until he has a conversation with his . Discharge Exam Constitutional WD/WN, vitals as above Neck trachea midline, no thyromegaly Respiratory normal respiratory effort, lungs clear to auscultation Cardiovascular RRR, no murmur, no edema Discharge Plan Discharge Items Patient Disposition: Home - Self-Care Reason For Visit: BACK PAIN Discharge Diagnosis: Pancreatitic mass Condition on Discharge: Fair Activity: Resume your previous activity Non-emergency contact: Primary Care Provider Call non-emergency contact if: you have any medication questions Follow-up/Referrals: Joshua Espino MD [Primary Care Provider] - Diet: Carb Consistent or DM2, Low Potassium (2gm) and Low Fat Addtl Attending Provider Instructions: Recommend followup with your PCP in 1-2 weeks Recommend followup with your Oncologist once results are back. Your fentanyl patch was placed yesterday, so this will need to be removed and exchanged on . Continue osmar and miralax to prevent constipation. If you have diarrhea, cut back the miralax to once a day. Pending Studies at Discharge: No Stand-Alone Forms: [facility], Pain - Opioid Pain Management, Smoking Cessation Medications and DC Order Prescriptions: New fentanyl 25 mcg/hr Patch 72 Hour 1 patch transdermal Q3D Qty: 5 0RF sennosides [Senna Lax] 8.6 mg Tablet 8.6 mg PO HS Qty: 30 0RF polyethylene glycol 3350 [Miralax] 17 gram Powder In Packet 17 g PO BID Qty: 30 0RF oxycodone 5 mg Tablet 5 mg PO Q6H PRN (Reason: pain) Qty: 45 0RF Continued finasteride 5 mg tablet 5 mg PO DAILY Qty: 90 3RF Xarelto 20 mg tablet 20 mg PO QPM Qty: 90 3RF Rx Instructions: must administer with evening meal Multaq 400 mg tablet 400 mg PO BID Qty: 180 3RF Rx Instructions: must administer with a meal/food famotidine 40 mg tablet 40 mg PO QAM Qty: 90 3RF Bioflex [id number] mg tablet 2 tab PO QAM No Action esomeprazole magnesium 20 mg capsule,delayed release(DR/EC) 20 mg PO BID Qty: 180 1RF metoprolol succinate 25 mg tablet extended release 24 hr 25 mg PO QAM Qty: 90 3RF escitalopram oxalate 10 mg tablet 10 mg PO QAM Qty: 90 3RF Discharge Orders: Discharge Order (Routine); Ordered 06/25/25 Ordered By: Justice Dover/Other Patient Handouts: What Is Palliative Care, Taking Opioid Medicine, Life After Cancer: Managing Pain Admission Data Admit Date/Time: 06/17/25 15:59 Attending Provider: Justice Egan Admit Provider: Saul Landers Primary Care Provider: Joshua Espino Other Providers: Judi Greco; Osman Lopez I; Luis Eaton Other Interventions: Discharge Summary Assessment (RN) Last Done: 06/25/25 17:54 Hospital Stay Data Consultations 06/17/25 15:18 ED Decision to Admit Stat 06/17/25 19:00 Consult Oncology Routine 06/20/25 12:19 Consult Palliative Care Routine 06/24/25 11:55 Consult Anesthesiology Routine 06/24/25 17:36 Consult Gastroenterology Routine Procedures Performed Operation Date: 06/25/25 09:50 Actual Procedures p Ultrasound Liver Biopsy with Anesthesia Sedation - Claudio Arnold PA-C Diagnostic Imagining Performed 06/17/25 12:43 CT abd pelvis IV con only Stat 06/17/25 12:46 CT angio chest PE protocol Stat 06/19/25 08:16 MRI MRCP [MR MRCP] Routine 06/25/25 IR biopsy liver US Routine Pending Results Patient Have Any Pending Studies at Discharge: No Discharge Instructions Given to Patient (Per Discharging Provider) Recommend followup with your PCP in 1-2 weeks Recommend followup with your Oncologist once results are back. Your fentanyl patch was placed yesterday, so this will need to be removed and exchanged on . Continue osmar and miralax to prevent constipation. If you have diarrhea, cut back the miralax to once a day. Total Time Total Time Spent Total Time Spent (In Minutes): 35 Coding Level of Care Code 88270 INP/OBS DISCH >30 MIN Diagnoses Pancreatic mass K86.89 Transaminitis R74.01 GERD (gastroesophageal reflux disease) K21.9 Atrial fibrillation I48.91
--- NOTE | 2025-06-27 08:24 | Coding Query ---
PATHOLOGY To promote full compliance with coding requirements relating to patient care, physician participation is requested in all cases of fax machine repairer uncertainty. 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
== END 2025-06-25 18:36 | disposition home or self-care (01) | DRG 436 ==
LOC: SUATTDRO → ED 12:29 → 3W 15:59 → INTOOBSV 15:59 → SUATTDRO 15:59 → 3W 18:06

== ENCOUNTER 2025-07-02 22:55 | Inpatient (IN) ==
[2025-07-02 23:45] LABS: Hematocrit (blood only) 36.0 % (42.0-52.0); Hemoglobin 12.1 g/dl (14.0-18.0); Immature Granulocytes # (auto) 0.18 K/uL (0.01-0.20); Immature Granulocytes % (auto) 1.1 %; Mean Corpuscular Hemoglobin 29.8 pg (25.0-34.0); Mean Corpuscular Volume 88.7 fL (80.0-100.0); Platelet Count 256 K/uL (130-400); RDW Standard Deviation 57.4 fL (36.4-46.3); Red Blood Count 4.06 M/uL (4.70-6.10); White Blood Count 17.05 K/ul (4.8-10.8)
--- NOTE | 2025-07-03 00:13 | Emergency Department Note ---
Impression & Plan Delirium due to hepatic encephalopathy, Acute hyponatremia admit to the [facility] ED Provider Note NAME: MEGAN GUTIERREZ AGE: 64 SEX: Male INFORMANT: Patient ED PROVIDER(S): Anai Jones DO CHIEF COMPLAINT: altered mental status PLAN: Disposition: admit to the [facility] MEDICAL DECISION MAKING: This is a 64-year-old male patient who was recently diagnosed with pancreatic cancer who has become increasingly confused. Patient left the house tonight because of confusion and could not get back in. His was able to stop him a second time from leaving the house. He is having increased hallucinations. He is taking oxycodone and wearing a fentanyl patch and also has not been sleeping. His also explains that he has become more jaundiced. laboratory studies reveal significant hyponatremia with a sodium of 125. T. bili has doubled in the past 7 days up to 11.8. Glucose was 151. Hemoglobin was normal at 12.1. TSH was normal. AST is 157 and ALT at 116. Alk phos is up to 830. ammonia level was normal. We did perform CT of the brain to rule out mets and this was negative. Patient does have some EKG changes with T wave inversion in the lateral leads but troponin was normal. [facility] care. Care/management discussed with: health care manager and [facility] Triage Nursing notes: reviewed and agree with them. Vital Signs: reviewed and Unremarkable Additional History obtained from: patient's is at the bedside Chronic Medical/Social Conditions affecting care: newly diagnosed adenocarcinoma of the pancreas Prior/ Outside/ External records reviewed: recent inpatient hospitalization Differential Diagnosis: hepatic encephalopathy, metastatic disease of the brain, elevated ammonia levels, seizure, hypoglycemia, hyponatremia, Diagnostics, independently interpreted by me: ECG: Normal sinus rhythm at a rate of 89 with T wave inversion in leads I, aVL, V4, V5 and V6. Cardiac Monitoring: normal sinus rhythm at a rate of 88 Imaging studies: CT scan of the brain: As per [facility] HPI: 64 year old Male arrives for evaluation of Increased confusion. recently diagnosed with pancreatic cancer who has become increasingly confused. Patient left the house tonight because of confusion and could not get back in. His was able to stop him a second time from leaving the house. He is having increased hallucinations. He is taking oxycodone and wearing a fentanyl patch and also has not been sleeping. His also explains that he has become more jaundiced. PAST MEDICAL HISTORY: See Below, PAST SURGICAL HISTORY: See Below, SOCIAL HISTORY: See Below, HOME MEDICATIONS: see list ALLERGIES: none VITALS: See Below PHYSICAL EXAMINATION: HEENT: Head - normocephalic and atraumatic. Pupils are equal, round, and reactive to light. Extraocular eye muscles are intact, and sclera are Moderately icteric Nose - moist nasal mucosa without discharge. Mouth - drybuccal mucosa. Oropharynx is nonerythematous and there is no tonsillar exudate or edema noted. Neck: Supple; no JVD or cervical lymphadenopathy Heart: Regular rate and rhythm. There is a normal S1 and S2 with no murmurs, clicks, or gallops appreciated. Lungs: Clear to auscultation bilaterally with no wheezes, rales, or rhonchi. Abdomen: Soft, completely nontender, nondistended, with good bowel sounds. There are no palpable pulsatile masses or hepatosplenomegaly. There is no guarding, rigidity, or rebound noted. Extremities: No evidence of cyanosis, clubbing, or edema. There are easily palpable peripheral pulses. Skin: extremely jaundiced with poor turgor. Neuro: Patient is alert and oriented to person and place. Does know the month. emergency department treatment: hospital monitor, IV normal saline bolus Emergency Department course: the patient was evaluated in room C-6. A complete history and physical was performed. An order was placed for continuous cardiac monitoring. The patient was in a normal sinus rhythm at a rate of 88. Twelve-lead EKG was obtained as described above. IV lock was initiated and labs were drawn as above. Patient was bolused with a liter of normal saline solution. Patient went for CT scan of the brain. I discussed the case with the [facility] Hospitalist and they will evaluate for further inpatient care. Past Med/Surg History Problem List (Updated 07/04/25 @ 09:06 by Anai Jones DO) Acute hyponatremia (Acute) Delirium due to hepatic encephalopathy (Acute) Insomnia due to anxiety and fear Delirium Jaundice, hepatocellular Pancreatic carcinoma metastatic to liver Acute encephalopathy Hyponatremia Pancreatic cancer Confusion Counseling regarding advanced directives and goals of care Palliative care by specialist Cancer-related breakthrough pain Cancer related pain Epigastric abdominal pain (Acute) Metastatic cancer (Acute) Transaminitis Pancreatic mass Diabetes mellitus Anemia, mild Current use of proton pump inhibitor Encounter for pre-operative examination BMI over 35 (Acute) Laryngopharyngeal reflux (Acute) Adjustment disorder Severe obstructive sleep apnea Nocturnal hypoxemia Atrial fibrillation new onset since dx with covid 03/23/22 Benign prostatic hyperplasia with urinary obstruction (Acute) Hyperglycemia (Acute) "borderline" Hyperlipidemia (Acute) "borderline" Medical History Atrial fibrillation Sleep apnea Morbid (severe) obesity due to excess calories Mass of pancreas History of cardioversion 06/17/22, [place]; f/u dr ellison, [place]; 07/[place], [place] GERD (gastroesophageal reflux disease) ADD (attention deficit disorder) Anxiety and depression History of COVID-19 03/23/22>home test *a-fib occured Sleep apnea cpap used Surgical History History of cardiac radiofrequency ablation 09/2022, [facility]; f/u Dr. Castro, [facility] History of tooth extraction Hx of LASIK Hx of cholecystectomy H/O hernia repair Family History Brother History of kidney cancer Unknown Diabetes Hypertension Father Stroke Mother Stroke Other No family history of adverse response to anesthesia Denies family history of Colon cancer Ovarian cancer Prostate cancer Myocardial infarction Breast cancer Social History Smoking Status: Never smoker Second Hand Exposure: No; Do You Dip or Chew Tobacco: No; Hx Alcohol Use: Yes Alcohol type: wine Hx Substance Use: No Preferred Language: Greenlandic Communication Ability: Effective Visual Impairment: No Limitations Hearing Ability: Normal Sports Commentator Required: No Beliefs That Will Affect Care: None marital status: Current Living Situation: Spouse current occupational status: employed 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 Other Information That Helps Us Care for You: No Feels Safe at Home: Yes Safety Concerns: Feels Safe At This Time Childhood Exposure to Second-Hand Smoke: Yes Dental Care, Regularly: Yes Physical Activity Frequency: 1-2 Times per Week Seatbelt Use: always Sunscreen Use: Yes Assistive Devices: CPAP Allergies Allergies Allergy/AdvReac Type Severity Reaction Status Date / Time No Known Allergies Allergy Verified 07/02/25 23:54 Home Meds Home Medications Medication Instructions Recorded Confirmed vit 2 tab PO QAM 02/27/21 07/02/25 [id number] 500 mg-50 mg-25 mg-40 mg tablet (Bioflex) Previous Rx's Medication Instructions Recorded finasteride 5 mg tablet 5 mg PO DAILY #90 tabs 09/05/24 rivaroxaban 20 mg tablet (Xarelto) 20 mg PO QPM #90 tabs 09/25/24 dronedarone 400 mg tablet (Multaq) 400 mg PO BID #180 tabs 03/18/25 famotidine 40 mg tablet 40 mg PO QAM #90 tabs 03/20/25 fentanyl 25 mcg/hr transdermal 1 patch transdermal Q3D #5 ea 06/25/25 patch oxycodone 5 mg tablet 5 mg PO Q6H PRN pain #45 tabs 06/25/25 polyethylene glycol 3350 17 gram 17 g PO BID #30 ea 06/25/25 oral powder packet (Miralax) sennosides 8.6 mg tablet (Senna 8.6 mg PO HS #30 tabs 06/25/25 Lax) escitalopram oxalate 10 mg tablet 10 mg PO QAM #90 tabs 06/26/25 esomeprazole magnesium 20 mg 20 mg PO BID #180 caps 06/26/25 capsule,delayed release metoprolol succinate 25 mg 25 mg PO QAM #90 tabs 06/26/25 tablet,extended release 24 hr Results & Data (ED) Vital Signs Vital Signs - 24 hr 07/02/25 22:57 07/02/25 23:23 07/02/25 23:23 Temperature 36.3 C L Temperature Source Oral Pulse Rate 90 Pulse Rate [Apical] Respiratory Rate 18 Respiratory Effort / Characteristics Non-Labored Spontaneous Respiratory Depth Normal Respiratory Pattern Regular Blood Pressure 112/77 Blood Pressure [Right Arm] Blood Pressure Mean 88 Blood Pressure Mean [Right Arm] Blood Pressure Position Sitting Pulse Oximetry 95 93 93 Oxygen Delivery Method Room Air Room Air Room Air Sepsis Recent Fever Within 48 Hours No Sepsis New/Unexplained Change in Mental Status No Sepsis Action Taken by Nursing No Action Required 07/02/25 23:23 Temperature Temperature Source Pulse Rate Pulse Rate [Apical] 83 Respiratory Rate 17 Respiratory Effort / Characteristics Non-Labored Respiratory Depth Normal Respiratory Pattern Regular Blood Pressure Blood Pressure [Right Arm] 137/79 Blood Pressure Mean Blood Pressure Mean [Right Arm] 98 Blood Pressure Position Pulse Oximetry 93 Oxygen Delivery Method Room Air Sepsis Recent Fever Within 48 Hours Sepsis New/Unexplained Change in Mental Status Sepsis Action Taken by Nursing Laboratory Data 07/03/25 12:53 07/04/25 07:38 Lab Results 07/02/25 07/03/25 07/03/25 Range/Units 23:23 01:05 01:44 WBC 17.05 H (4.8-10.8) K/ul RBC 4.06 L (4.70-6.10) M/uL Hgb 12.1 L (14.0-18.0) g/dl Hct 36.0 L (42.0-52.0) % MCV 88.7 (80.0-100.0) fL MCH 29.8 (25.0-34.0) pg MCHC 33.6 (32.0-36.0) g/dL RDW Std Deviation 57.4 H (36.4-46.3) fL RDW Coeff of [place] 18.4 H (11.5-14.5) % Plt Count 256 (130-400) K/uL MPV 10.5 (9.4-12.4) fL Immature Gran % (Auto) 1.1 % Neut % (Auto) 60.8 % Lymph % (Auto) 21.0 % Carl[place] % (Auto) 13.1 % Eos % (Auto) 3.4 % Baso % (Auto) 0.6 % Neut # (Auto) 10.37 H (1.40-6.50) K/uL Lymph # (Auto) 3.58 H (1.20-3.40) K/uL Carlton # (Auto) 2.24 H (0.11-0.59) K/uL Eos # (Auto) 0.58 H (0.00-0.50) K/uL Baso # (Auto) 0.10 (0.00-0.20) K/uL Immature Gran # (Auto) 0.18 (0.01-0.20) K/uL Sodium 125 L (136-145) mmol/L Potassium 4.4 (3.5-5.1) mmol/L Chloride 94 L (98-107) mmol/L Carbon Dioxide 24 (21-32) mmol/L Anion Gap 7 (3-11) BUN 16 (6-23) mg/dl Creatinine 0.99 (0.6-1.4) mg/dl Est Cr Clr Drug Dosing 106.3 ml/min eGFR 84.54 BUN/Creatinine Ratio 16.2 (10-20) Glucose 151 H (70-99(Fasting)) mg/dl Calcium 9.5 (8.6-10.3) mg/dl Total Bilirubin 11.8 H (0.2-1.0) mg/dl AST 157 H (13-39) U/L ALT 116 H (7-52) U/L Alkaline Phosphatase 830 H (34-104) U/L Ammonia TNP 52.0 Troponin I High Sens 19.5 (0-20) pg/ml Total Protein 7.5 (6.0-8.3) gm/dl Albumin 2.4 L (3.4-5.0) gm/dl Globulin 5.1 H (2.5-4.0) gm/dl Albumin/Globulin Ratio 0.5 L (0.9-2) TSH 1.460 (0.300-4.500) uIu/ml Urine Color Dark Yellow Urine Appearance Cloudy A (Clear) Urine pH 5.5 (4.5-7.5) Ur Specific [place] 1.022 (1.000-1.030) Urine Protein 1+ H (Negative) Urine Glucose (UA) Negative (Negative) Urine Ketones Negative (Negative) Urine Blood Negative (Negative) Urine Nitrite Positive A (Negative) Urine Bilirubin 3+ H (Negative) Urine Urobilinogen Positive H (Negative) Ur Leukocyte Esterase 1+ H (Negative) Urine WBC (Auto) 0-5 (0-5) /hpf Urine RBC (Auto) 6-10 H (0-2) /hpf U Hyaline Cast (Auto) 11-20 H (0-2) /lpf U Epithel Cells (Auto) 6-10 H (0-2) /hpf Urine Bacteria (Auto) None Seen (None Seen) Urine Mucus Present A (None Prsent) Urine Comment Administered Medications Escitalopram Oxalate (Escitalopram Oxalate 10 Mg Tab) 10 mg PO QAM [facility] Stop: 08/02/25 08:59 Last Admin: 07/04/25 08:12 Dose: 10 mg Documented By: Admin: 07/03/25 08:20 Dose: 10 mg Documented By: NICO Famotidine (Famotidine 40 Mg Tablet) 40 mg PO QAM [facility] Stop: 08/02/25 08:59 Last Admin: 07/04/25 08:12 Dose: 40 mg Documented By: Admin: 07/03/25 08:20 Dose: 40 mg Documented By: NICO Fentanyl (Fentanyl 25 Mcg/Hr Tdsy) 1 patch TD Q3D@0900 ZEB Stop: 07/17/25 08:59 Last Admin: 07/03/25 08:19 Dose: 1 patch Documented By: NICO Fentanyl (Fentanyl 12 Mcg/Hr Tdsy) 1 patch TD Q3D ZEB Stop: 07/17/25 12:14 Last Admin: 07/03/25 12:39 Dose: 1 patch Documented By: NICO Finasteride (Finasteride 5 Mg Tab) 5 mg PO DAILY ZEB Stop: 08/02/25 08:59 Last Admin: 07/04/25 08:13 Dose: 5 mg Documented By: Admin: 07/03/25 08:20 Dose: 5 mg Documented By: NICO Lactulose (Lactulose Syrup 20 Gm/30 Ml Udc) 30 gm PO TID [facility] Stop: 08/03/25 08:59 Last Admin: 07/04/25 08:10 Dose: 30 gm Documented By: Lorazepam (Lorazepam 0.5 Mg Tab) 0.5 mg PO Q6H PRN PRN Reason: Anxiety Stop: 08/02/25 12:14 Last Admin: 07/03/25 12:39 Dose: 0.5 mg Documented By: NICO Melatonin (Melatonin 3 Mg Tab) 3 mg PO HS PRN PRN Reason: Sleep Stop: 08/02/25 04:52 Last Admin: 07/03/25 20:56 Dose: 3 mg Documented By: OTILIO Metoprolol Succinate (Metoprolol Succ 25mg Ext Rel Tab) 25 mg PO QAM [facility] Stop: 08/02/25 08:59 Last Admin: 07/04/25 08:14 Dose: Not Given Documented By: Admin: 07/03/25 08:20 Dose: 25 mg Documented By: NICO Miconazole Nitrate (Miconazole Nitrate Powder 85 Gm) 1 appln EXT PRN PRN PRN Reason: Affected Skin Folds Stop: 08/02/25 08:04 Last Admin: 07/03/25 20:56 Dose: 1 appln Documented By: OTILIO Tobias (Fentanyl Patch Remove & Waste) 1 each N/A Q3D@0859 [facility] Stop: 08/02/25 08:58 Last Admin: 07/03/25 08:21 Dose: 1 each Documented By: NICO Co-signed By: YAKOV Tobias (Check Fentanyl Patch Placement) 1 each N/A QS [facility] Stop: 08/02/25 04:59 Last Admin: 07/04/25 08:06 Dose: 1 each Documented By: Admin: 07/04/25 00:40 Dose: 1 each Documented By: Admin: 07/03/25 15:50 Dose: 1 each Documented By: Admin: 07/03/25 08:21 Dose: 1 each Documented By: Admin: 07/03/25 05:06 Dose: 1 each Documented By: ALEXANDRA Tobias (Fentanyl 12mcg Patch Remove & Waste) 1 each N/A Q3D [facility] Stop: 08/02/25 12:14 Last Admin: 07/03/25 12:40 Dose: 1 each Documented By: NICO Co-signed By: YAKOV Tobias (Check 12 Mcg Fentanyl Patch Placement) 1 each N/A QS [facility] Stop: 08/02/25 15:59 Last Admin: 07/04/25 08:06 Dose: 1 each Documented By: Admin: 07/04/25 00:40 Dose: 1 each Documented By: Admin: 07/03/25 15:49 Dose: 1 each Documented By: NICO Oxycodone HCl (Oxycodone Hcl Ir 5 Mg Tab (Immediate Release)) 5 mg PO Q4H PRN PRN Reason: pain Stop: 07/17/25 04:52 Last Admin: 07/04/25 08:11 Dose: 5 mg Documented By: Admin: 07/03/25 21:21 Dose: 5 mg Documented By: Admin: 07/03/25 16:10 Dose: 5 mg Documented By: NICO Pantoprazole Sodium (Pantoprazole 40 Mg Tab) 40 mg PO BID [facility] Stop: 08/02/25 08:59 Last Admin: 07/04/25 08:13 Dose: 40 mg Documented By: Admin: 07/03/25 20:56 Dose: 40 mg Documented By: Admin: 07/03/25 08:20 Dose: 40 mg Documented By: NICO Polyethylene Glycol (Polyethylene (Miralax) 17 Gm Pack) 17 gm PO BID ZEB Stop: 08/02/25 08:59 Last Admin: 07/04/25 08:14 Dose: 17 gm Documented By: Admin: 07/03/25 20:56 Dose: 17 gm Documented By: Admin: 07/03/25 08:19 Dose: 17 gm Documented By: NICO Sennosides (Senna 8.6 Mg Tab) 8.6 mg PO HS ZEB Stop: 08/02/25 20:59 Last Admin: 07/03/25 20:56 Dose: 8.6 mg Documented By: OTILIO Sodium Chloride (Sodium Chloride 1 Gm Tablet) 1 gm PO BID ZEB Stop: 08/02/25 09:14 Last Admin: 07/04/25 08:12 Dose: 1 gm Documented By: Admin: 07/03/25 20:56 Dose: 1 gm Documented By: Admin: 07/03/25 09:59 Dose: 1 gm Documented By: NICO Trazodone HCl (Trazodone Hcl 50 Mg Tab) 25 mg PO HS ZEB Stop: 08/02/25 20:59 Last Admin: 07/03/25 21:01 Dose: 25 mg Documented By: OTILIO Discontinued Medications Dronedarone (Dronedarone Hcl 400 Mg Tab) 400 mg PO BID ZEB Stop: 08/02/25 08:59 Last Admin: 07/03/25 08:19 Dose: 400 mg Documented By: NICO Sodium Chloride (Nss) 1,000 mls @ 999 mls/hr IV .Q1H1M ONE Stop: 07/03/25 01:58 Last Infusion: 07/03/25 03:28 Dose: Infused Documented By: Admin: 07/03/25 01:08 Dose: 999 mls/hr Documented By: USMAN Sodium Chloride (Hypertonic Saline 3%) 100 mls @ 600 mls/hr IV .Q10M STA; Protocol Stop: 07/03/25 03:57 Last Infusion: 07/03/25 04:21 Dose: Infused Documented By: USMAN Co-signed By: FRANKIE Admin: 07/03/25 04:04 Dose: 600 mls/hr Documented By: USMAN Co-signed By: ZACH Sodium Chloride (Nss) 500 mls @ 999 mls/hr IV .Q31M ONE Stop: 07/03/25 15:52 Last Infusion: 07/03/25 17:45 Dose: Infused Documented By: Admin: 07/03/25 15:49 Dose: 999 mls/hr Documented By: NICO Melatonin (Melatonin 3 Mg Tab) 3 mg PO NOW STA Stop: 07/03/25 03:16 Last Admin: 07/03/25 04:03 Dose: 3 mg Documented By: USMAN Oxycodone HCl (Oxycodone Hcl Ir 5 Mg Tab (Immediate Release)) 5 mg PO Q6H PRN PRN Reason: pain Stop: 07/17/25 04:52 Last Admin: 07/03/25 08:19 Dose: 5 mg Documented By: NICO Discharge Plan Visit Data Chief Complaint: Confusion Stated Complaint: DRUG-RELATED REACTION, HALLUCINATIONS, CONFUSION ED Provider: Anai Jones Discharge Problem: Delirium due to hepatic encephalopathy, Acute hyponatremia Patient Disposition: Admitted As Inpatient Condition: Serious Discharge Instructions Interventions: ED Discharge Assessment Last Done: 07/03/25 04:38
[2025-07-03 00:33] LABS: Alanine Aminotransferase 116.0 U/L (7-52); Albumin Globulin Ratio 0.5 (0.9-2); Albumin Level 2.4 gm/dl (3.4-5.0); Alkaline Phosphatase 830.0 U/L (34-104); Anion Gap 7.0 (3-11); Bilirubin,Total 11.8 mg/dl (0.2-1.0); Blood Urea Nitrogen 16.0 mg/dl (6-23); Calcium 9.5 mg/dl (8.6-10.3); Carbon Dioxide 24.0 mmol/L (21-32); Chloride 94.0 mmol/L (98-107); Creatinine Clr Calc Pharmacy 106.3 ml/min; Globulin 5.1 gm/dl (2.5-4.0); Glucose 151.0 mg/dl (70-99(Fasting)); Sodium 125.0 mmol/L (136-145); Thyroid Stimulating Hormone 1.46 uIu/ml (0.300-4.500); Total Protein 7.5 gm/dl (6.0-8.3)
[2025-07-03] MEDS: SODIUM CHLORIDE 0.9% 1,000 ML IV ONE (01:08)
[2025-07-03 01:14] LABS: Potassium 4.4 mmol/L (3.5-5.1)
--- NOTE | 2025-07-03 02:09 | History & Physical Report ---
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 His evaluation reveals evidence of leukocytosis at 17k, mild anemia of 12.1/36, Na 125, glucose 151, and elevated LFTs (bili 11.8, AST 157, ALT 116, AP 830). His ammonia, trop, and TSH are WNL. Head CT without acute findings. Admission for further evaluation of confusion in setting of significant hyponatremia, with focus on obtaining input from palliative medicine and oncology. #Confusion/Pancreatic CA In setting of known pancreatic cancer with mets to liver; Period of lucidity per but with confusion and hallucinations that have been worsening. Likely related to pancreatic cancer, r/o mets to brain, also in setting of worse hyponatremia. Will manage hyponatremia with attempts to improve, ? improvement in mentation. Also very minimal amounts of sleep, would benefit from restful sleep. - CBC leukocytosis 17k, H/H 12.1/36; CMP Na 126, transaminitis; trop, ammonia, TSH WNL - CBC, BMP am - UA contamination versus infection - without symptoms - pending cx - Head CT without acute findings - Fall precautions - NSS 3% for hyponatremia - Melatonin to attempt to assist in sleep -- adjust regimen as able - Continue pain management -- Fentanyl patch (placed 06/30, due to be replaced 07/03), oxycodone 5mg - Continue constipation regimen - Palliative care consulted -- appreciate input + recs -- pt requesting massage therapist as well? - Oncology consulted -- appreciate input + recs #Hyponatremia Poor intake previously, still with decreased intake. - Na 125, glucose 151- corrected 126 -- Na q4h, BMP am - Serum osmol, urine osmol, urine Na pending - NSS 3% now -- consider tablets ongoing #Transaminitis In setting of liver mets, worsening; Evaluated by GI during last hospital course, biliary stenting was not pursued at that time; currently without new abdominal pain but admits to constant abdominal discomfort. - Bili 11.8, AST 157, ALT 116, AP 830 - trend as appropriate - Consider GI consult as appropriate #BAUTISTA- O2 via NC for now - once proper sleep regimen, utilize CPAP #Afib- Xarelto, Multaq, metoprolol - continue #Psych- Escitalopram - continue #GERD- Esomeprazole, famotidine - continue #BPH- Finasteride - continue Patient is requesting that his information regarding the clinical course since his diagnosis of pancreatic cancer be clearly laid out for him, possibly in a list like format so he is aware of what has been done and what has not been done, as well as the results of such. At the time of his discharge, please make sure that this is a priority to complete as the patient would like to be very involved in his care and have a clear understanding. Dispo: Admit, med/tele VTE Prophylaxis: On Xarelto - continue This document was dictated utilizing Unfold. Please excuse any grammatical errors that may be secondary to use of this software. 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 helps to provide the history. Patient reports that he has had an unfortunate past few weeks (6 weeks) regarding his recent diagnosis and array of different symptomatic complaints. Of most concern is that he has been unable to sleep for the past few weeks which has also been negatively impacting his , Sonia. He states that he has been having some hallucinations, thinking that he is seeing snakes and bears at times and speaking to people from his past when they are not there. He believes that this is mainly secondary to not sleeping hardly at all. States that whenever he is asleep in a bed, he normally cannot stay sleeping for long because he starts to get shoulder discomfort and back discomfort. Whenever he adjusts to try to find a different and more comfortable position, he is only able to stand up position for certain amount of time before he becomes uncomfortable again. He has some relief when sitting in a chair. Throughout the night whenever he is unable to sleep and he is awake, he tends to have some feelings of anxiety as he finds that his mind is racing because he cannot sleep. He also admits to his profound anorexia, being unable to tolerate almost anything by mouth because of his significantly decreased appetite. Overall, the patient is able to tell me most of the history. 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 At this time, the patient's main goal was to try to get to October 09 so that he is able to see his only granddaughter turned 2 years old. The patient and his Sonia explained that they have a good family system and support system, with multiple different family members involved in different aspects of medicine and in their spirituality. Again, the patient is most concerned with getting restful sleep, his getting restful sleep, and being able to spend time with his granddaughter as he is able to. The patient does have persistent abdominal discomfort, not stating that 1 area is hurting more than the other but just stated that this is very generalized. He does have nausea at times, but no vomiting. Patient admits to occasional feelings as though he is short of breath, but not at present. Patient is without any additional symptoms at this time to include chest pain, palpitations, numbness/tingling, fever/chills, URI symptoms, LUTS, weakness, syncope, or falls. Patient is requesting that the information be clearly laid out for him, possibly in a less like format so he is aware of what has been done and what has not been done as well as the results of such. ED evaluation reveals CBC with leukocytosis 17.05, H/H 12.1/36; CMP Na 125, Cl 94, glucose 151, bili 11.8, AST 157, ALT 116, Alk phos 830, albumin 2.4, globulin 5.1; ammonia 52; trop 19.5; TSH 1.460; head CT without acute findings.; Provided with 1L NSS in ED. Please see Dr. Amezcua's attestation for adjustments/additions to treatment plan. Allergies Allergy/AdvReac Type Severity Reaction Status Date / Time No Known Allergies Allergy Verified 07/02/25 23:54 Home Medications Medication Instructions Recorded Confirmed Type vit 2 tab PO QAM 02/27/21 07/02/25 History [id number] 500 mg-50 mg-25 mg-40 mg tablet (Bioflex) finasteride 5 mg tablet 5 mg PO DAILY #90 tabs 09/05/24 07/02/25 Rx rivaroxaban 20 mg tablet (Xarelto) 20 mg PO QPM #90 tabs 09/25/24 07/02/25 Rx dronedarone 400 mg tablet (Multaq) 400 mg PO BID #180 tabs 03/18/25 07/02/25 Rx famotidine 40 mg tablet 40 mg PO QAM #90 tabs 03/20/25 07/02/25 Rx fentanyl 25 mcg/hr transdermal 1 patch transdermal Q3D #5 ea 06/25/25 07/02/25 Rx patch oxycodone 5 mg tablet 5 mg PO Q6H PRN pain #45 tabs 06/25/25 07/02/25 Rx polyethylene glycol 3350 17 gram 17 g PO BID #30 ea 06/25/25 07/02/25 Rx oral powder packet (Miralax) sennosides 8.6 mg tablet (Senna 8.6 mg PO HS #30 tabs 06/25/25 07/02/25 Rx Lax) escitalopram oxalate 10 mg tablet 10 mg PO QAM #90 tabs 06/26/25 07/02/25 Rx esomeprazole magnesium 20 mg 20 mg PO BID #180 caps 06/26/25 07/02/25 Rx capsule,delayed release metoprolol succinate 25 mg 25 mg PO QAM #90 tabs 06/26/25 07/02/25 Rx tablet,extended release 24 hr Past Med/Surg History Problem List (Updated 07/03/25 @ 03:30 by Leisa Mckee PA-C) Hyponatremia Pancreatic cancer Confusion Counseling regarding advanced directives and goals of care Palliative care by specialist Cancer-related breakthrough pain Cancer related pain Epigastric abdominal pain (Acute) Metastatic cancer (Acute) Transaminitis Pancreatic mass Diabetes mellitus Anemia, mild Current use of proton pump inhibitor Encounter for pre-operative examination BMI over 35 (Acute) Laryngopharyngeal reflux (Acute) Adjustment disorder Severe obstructive sleep apnea Nocturnal hypoxemia Atrial fibrillation new onset since dx with covid 03/23/22 Benign prostatic hyperplasia with urinary obstruction (Acute) Hyperglycemia (Acute) "borderline" Hyperlipidemia (Acute) "borderline" Medical History Atrial fibrillation Sleep apnea Morbid (severe) obesity due to excess calories Mass of pancreas History of cardioversion 06/17/22, [place]; f/u dr ellison, [place]; 07/[place], [place] GERD (gastroesophageal reflux disease) ADD (attention deficit disorder) Anxiety and depression History of COVID-19 03/23/22>home test *a-fib occured Sleep apnea cpap used Surgical History History of cardiac radiofrequency ablation 09/2022, [facility] [place]; f/u Dr. Castro, [facility] History of tooth extraction Hx of LASIK Hx of cholecystectomy H/O hernia repair Family History Brother History of kidney cancer Unknown Diabetes Hypertension Father Stroke Mother Stroke Other No family history of adverse response to anesthesia Denies family history of Colon cancer Ovarian cancer Prostate cancer Myocardial infarction Breast cancer Social History Smoking Status: Never smoker Second Hand Exposure: No; Do You Dip or Chew Tobacco: No; Hx Alcohol Use: Yes Alcohol type: wine Hx Substance Use: No Preferred Language: Senegalese Communication Ability: Effective Visual Impairment: No Limitations Hearing Ability: Normal Mononitrotoluene Operator Required: No Beliefs That Will Affect Care: None marital status: Current Living Situation: Spouse current occupational status: employed 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 Other Information That Helps Us Care for You: No Feels Safe at Home: Yes Safety Concerns: Feels Safe At This Time Childhood Exposure to Second-Hand Smoke: Yes Dental Care, Regularly: Yes Physical Activity Frequency: 1-2 Times per Week Seatbelt Use: always Sunscreen Use: Yes Assistive Devices: CPAP Review of Systems Review of Systems: All systems reviewed & are unremarkable except as noted in Subjective Physical Exam Physical Exam: General: No acute distress, very pleasant gentleman Skin: Warm and dry, jaundice Head: Normocephalic, atraumatic Eyes: PERRL, conjunctivae clear, icteric sclera ENT: External ear and ear canal without swelling; nose atraumatic; good dentition, tongue normal appearance, pharynx normal Neck: Supple, no LAD Cardio: RRR, no M/G/R, S1 and S2 normal Resp: No respiratory distress, Lungs CTA in all lobes bilaterally, no wheezes, rales, or rhonchi Abdomen: Soft, symmetric, mild tenderness to palpation throughout; No masses or hepatosplenomegaly; Bowel sounds normoactive MSK: No deformities; pulses palpable and equal; no edema. Neuro: Awake, alert; Sensation intact bilaterally; CN grossly intact Psych: Appropriate mood and affect; good judgement and insight; Pt able to tell me array of different information, aware of where he is at. , Sonia, is present in room at time of visit. Results & Data Results & Data Vital Signs (Past 12 Hours) Vital Signs Temp Pulse Pulse Resp BP BP Pulse Ox 07/03/25 01:00 82 16 107/60 95 07/03/25 00:23 88 07/02/25 23:23 83 17 137/79 93 07/02/25 23:23 93 07/02/25 23:23 93 07/02/25 22:57 36.3 C L 90 18 112/77 95 O2 Del Method 07/03/25 01:00 Room Air 07/03/25 00:23 07/02/25 23:23 Room Air 07/02/25 23:23 Room Air 07/02/25 23:23 Room Air 07/02/25 22:57 Room Air Laboratory Results 07/03/25 07/03/25 07/02/25 01:44 01:05 23:23 WBC 17.05 H RBC 4.06 L Hgb 12.1 L Hct 36.0 L MCV 88.7 MCH 29.8 MCHC 33.6 RDW Std Deviation 57.4 H RDW Coeff of [place] 18.4 H Plt Count 256 MPV 10.5 Immature Gran % (Auto) 1.1 Neut % (Auto) 60.8 Lymph % (Auto) 21.0 [place] % (Auto) 13.1 Eos % (Auto) 3.4 Baso % (Auto) 0.6 Neut # (Auto) 10.37 H Lymph # (Auto) 3.58 H [place] # (Auto) 2.24 H Eos # (Auto) 0.58 H Baso # (Auto) 0.10 Immature Gran # (Auto) 0.18 Sodium 125 L Potassium 4.4 Chloride 94 L Carbon Dioxide 24 Anion Gap 7 BUN 16 Creatinine 0.99 Est Cr Clr Drug Dosing 106.3 eGFR 84.54 BUN/Creatinine Ratio 16.2 Glucose 151 H Calcium 9.5 Total Bilirubin 11.8 H AST 157 H ALT 116 H Alkaline Phosphatase 830 H Ammonia 52.0 TNP Troponin I High Sens 19.5 Total Protein 7.5 Albumin 2.4 L Globulin 5.1 H Albumin/Globulin Ratio 0.5 L TSH 1.460 Urine Comment Diagnostic Findings Head CT 07/03/25 01:58 EXAM: CT head/brain wo con CLINICAL HISTORY: eval for mets TECHNIQUE: Multiple axial images were obtained from the skull base to the vertex without contrast. CT scan was performed according to ALARA (as low as reasonably achievable). COMPARISON: 12:50:04 STONE CLEANER. FINDINGS: There is cerebral atrophy. No evidence of space-occupying lesion, hemorrhage, edema, mass effect, midline shift, extra-axial collection, or hydrocephalus is noted. The basal cisterns are symmetric and normal in size and configuration. There are scattered periventricular hypodensities, as can be seen with chronic microvascular ischemic changes. The jones-white matter differentiation is preserved. The visualized paranasal sinuses and mastoid air cells are well aerated. Orbital contents are within normal limits. Bony structures are intact. IMPRESSION: 1. No evidence of acute intracranial abnormality is demonstrated. 2. Chronic microvascular ischemic changes, stable. 3. Cerebral atrophy, stable. Electronically signed by Dave Lester 07-03-2025 03:05 AM Medications Administered 1L NSS Code Status & VTE Plan Code Status DNR, okay with short term intubation as long as reversible Supervising Physician Co-Signing Physician Notes Attending addendum: I have physically seen this patient, have supervised the JOJO's activities, and agree with the H&P unless as otherwise noted. Assessment and Plan: The patient is a 64-year-old male with past medical history including pancreatic cancer with metastases, diabetes mellitus type 2, BAUTISTA, atrial fibrillation on Xarelto, BPH, and hyperlipidemia. He presents to the emergency department with his who noted confusion starting the night prior to arrival. Lab evaluation revealed a increase in WBC to 17.05, and declining sodium to 125, and worsening liver enzymes, particular bilirubin increasing to 11.8. He was noticeably more jaundiced. Ammonia level was normal. CT of head without contrast with no acute findings. [facility] evaluation and treatment. Confusion- Contributing factors included but not limited to: Worsening liver enzymes, hyponatremia, dehydration, metastatic disease, medication side effect, sleep deprivation, others Follow urine culture and sensitivity Follow-up blood culture sensitivity CT head without contrast negative MRI of brain is more likely to show progression of metastatic disease to brain, performed in the a.m. if symptoms are persistent Melatonin 3 mg at bedtime as needed Bowel regimen pain management as noted Consult palliative care Consult oncology Hyponatremia- Sodium 125 on admission Order serum osmolality and urine osmolality Hypertonic saline 3%, 100 mL now Serial BMP every 4 hours Abnormal liver enzymes- Worsening pancreatic cancer to liver Oncology consult Palliative care consult Atrial fibrillation- Continue Xarelto, Multaq and metoprolol Psychiatric- Continue escitalopram GERD- Change Nexium to pantoprazole Continue famotidine BPH- Continue finasteride PG Care Time/CCT Total # of Minutes Spent Total Time Spent with Patient: Total time spent is greater than 50% in coordination of care (as documented) at patient's floor/unit and/or counseling patient: Coding Level of Care Code 38234 INT INP/OBS CARE 3/75MIN Diagnoses Confusion R41.0 Pancreatic cancer C25.9 Hyponatremia E87.1 Transaminitis R74.01
[2025-07-03 02:47] LABS: Appearance Urine Cloudy (Clear); Bacteria Urine Automated None Seen (None Seen); Glucose Urine UA Negative (Negative); WBC Urine Automated 0-5 /hpf (0-5)
--- NOTE | 2025-07-03 03:06 | CT Scan Report ---
EXAM: CT head/brain wo con CLINICAL HISTORY: eval for mets TECHNIQUE: Multiple axial images were obtained from the skull base to the vertex without contrast. CT scan was performed according to ALARA (as low as reasonably achievable). 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 FINDINGS: There is cerebral atrophy. No evidence of space-occupying lesion, hemorrhage, edema, mass effect, midline shift, extra-axial collection, or hydrocephalus is noted. The basal cisterns are symmetric and normal in size and configuration. There are scattered periventricular hypodensities, as can be seen with chronic microvascular ischemic changes. The jones-white matter differentiation is preserved. The visualized paranasal sinuses and mastoid air cells are well aerated. Orbital contents are within normal limits. Bony structures are intact. IMPRESSION: 1. No evidence of acute intracranial abnormality is demonstrated. 2. Chronic microvascular ischemic changes, stable. 3. Cerebral atrophy, stable. Electronically signed by Dave Lester 07-03-2025 03:05 AM
[2025-07-03] MEDS ORDERED: STAT IV/IM STA (03:15)
[2025-07-03] MEDS: MELATONIN 3 MG TAB PO STA (04:03)
[2025-07-03] MEDS: SODIUM CHLORIDE 3 % 100 ML IV STA (04:04)
[2025-07-03] MEDS ORDERED: ONDANSETRON INJ 2 MG/ML 2 ML VIAL IV PRN (04:53)
--- NOTE | 2025-07-03 08:02 | Hospitalist Progress Note ---
Date of Service July 03, 2025 Assessment & Plan (1) Hyponatremia: (2) Acute encephalopathy: (3) Pancreatic carcinoma metastatic to liver: (4) Jaundice, hepatocellular: Plan 64 y/o with recently diagnosed pancreatic cancer metastatic to the liver admitted with acute encephalopathy, hyponatremia, worsened jaundice Has been unable to sleep for days because of low back pain and discomfort, anxiety. Has sleep apnea but unable to tolerate CPAP - feels like it blows too hard when he's sitting up, but can't lie down # Acute metabolic encephalopathy At least partially due to hyponatremia (Na 125), with the asterixis I am concerned about hepatic encephalopathy (even though ammonia wnl) or hypercarbia. Also has recently started fentanyl patch, has sleep deprivation Diagnostic plan: Sodium levels pending. Order vbg Treatment plan: correct sodium # Moderately severe hyponatremia - urine sodium was <10 recently which argues against SIADH. Possible hypovolemic, trial 500 mL NS. Seems likely combination of liver dysfunction and low dietary intake - NA improved to 127 after 3% NS 100 mL but came back down to 125 - check urine sodium - 500 mL NS - salt tabs, bid protein supplement - continue frequent sodium checks # Metastatic pancreatic cancer to the liver Bilirubin and alk phos levels worsened since recent discharge. GI consulted last admission and this was hepatocellular dysfunction related to extensive mets, not obstructive Diagnostic plan: None specified. Treatment plan: Palliative care consulted. Discuss with oncologist - saw Dr. Greco previous admission. Has appt 07/04 but is hospitalized # Cancer related pain and anxiety, severe insomnia -consulted palliative care -they have increased fentanyl patch -added trazodone cautiously at HS for sleep -continue escitalopram for depression, anxiety # afib -held dronedarone and xarelto because of liver dysfunction -continue metoprolol # BAUTISTA - currently not tolerating CPAP. check vbg # BPH - cont finasteride # DVT Prophylaxis: xarelto held 07/03, SCDs Medical Complexity: Medical decision making was complex, high risk for clinical deterioration morbidity, or mortality for this encounter. Unstable conditions include acute metabolic encephalopathy, hyponatremia. New problems or diagnoses today include acute metabolic encephalopathy. High risk medications and treatments include hypertonic saline. Patient is requesting that his information regarding the clinical course since his diagnosis of pancreatic cancer be clearly laid out for him, possibly in a list like format so he is aware of what has been done and what has not been done, as well as the results of such. At the time of his discharge, please make sure that this is a priority to complete as the patient would like to be very involved in his care and have a clear understanding. updated his at bedside Admission and Anticipated Discharge Date Admission Date: July 03, 2025 Subjective Poor sleep and can't lie flat because of back pain His reports he's been hallucinating a few weeks Back pain is a little better after starting fentanyl patch They haven't heard anything about oncology follow up Physical Exam 2 Physical Exam: General Appearance: chronically ill, sitting up in chair Vital signs: Reviewed past 24h vital signs in EMR, unremarkable. HEENT: Sclerae icteric Respiratory: O2 sat 93% on room air. CTA madelin Cardiovascular: Normal heart rate. Reg rate and rhythm no mrg Skin: Warm and dry, no rash. Jaundiced Neurological: Having visual hallucinations, confused though not overtly, asterixis present Ext: bilateral LE edema 1+ feet and ankles . Results & Data Results & Data Vital Signs (Past 12 Hours) Vital Signs Temp Pulse Pulse Resp BP BP BP 07/03/25 07:49 36.8 C 91 H 19 99/63 L 07/03/25 05:20 87 07/03/25 05:15 07/03/25 04:54 36.4 C L 83 20 109/75 07/03/25 04:53 07/03/25 04:28 83 07/03/25 04:00 82 17 103/80 07/03/25 03:00 82 17 100/81 07/03/25 01:00 82 16 107/60 07/03/25 00:23 88 07/02/25 23:23 83 17 137/79 07/02/25 23:23 07/02/25 23:23 07/02/25 22:57 36.3 C L 90 18 112/77 Pulse Ox O2 Del Method O2 Del Method 07/03/25 07:49 93 Room Air 07/03/25 05:20 07/03/25 05:15 Room Air 07/03/25 04:54 93 Room Air 07/03/25 04:53 Room Air 07/03/25 04:28 07/03/25 04:00 97 Room Air 07/03/25 03:00 94 Room Air 07/03/25 01:00 95 Room Air 07/03/25 00:23 07/02/25 23:23 93 Room Air 07/02/25 23:23 93 Room Air 07/02/25 23:23 93 Room Air 07/02/25 22:57 95 Room Air Laboratory Results 07/03/25 12:53 07/03/25 12:53 - Labs: - WBC: 17 - Hgb: 12 - Plt: 256 - Na: 125 - K: 4.4 - Cr: 0.99 - Ca: 9.5 - Bilirubin: 11.8 - Alk phos: 830 - Ammonia: 52 - Troponin: 19 - TSH: 1.4 - UA: Positive nitrites and leukocyte esterase, no WBCs, no bacteria - Imaging: - Head CT: Unremarkable PG Care Time/CCT Total # of Minutes Spent Total Time Spent with Patient: Total time spent is greater than 50% in coordination of care (as documented) at patient's floor/unit and/or counseling patient: Coding Level of Care Code 05773 SUB INP/OBS CARE 3/50MIN Diagnoses Hyponatremia E87.1 Acute encephalopathy G93.40 Pancreatic carcinoma metastatic to liver C25.9; C78.7 Jaundice, hepatocellular K76.89
[2025-07-03] MEDS: DRONEDARONE HCL 400 MG TAB PO SCH (08:19)
[2025-07-03] MEDS: POLYETHYLENE (MIRALAX) 17 GM PACK PO SCH (08:19)
[2025-07-03] MEDS: ESCITALOPRAM OXALATE 10 MG TAB PO SCH (08:20)
[2025-07-03] MEDS: FINASTERIDE 5 MG TAB PO SCH (08:20)
[2025-07-03] MEDS: FAMOTIDINE 40 MG TABLET PO SCH (08:20)
[2025-07-03] MEDS: METOPROLOL SUCC 25MG EXT REL TAB PO SCH (08:20)
[2025-07-03] MEDS: SODIUM CHLORIDE 1 GM TABLET PO SCH (09:59)
--- NOTE | 2025-07-03 10:57 | Palliative Care Consultation ---
Date of Consultation July 03, 2025 Assessment & Plan (1) Cancer related pain: Pt c/o abdominal RUQ pain that radiates across to LUQ; intermittent sharp stabbing pain in lower right chest to epigastric region. He shared that prior to admission pain has been improved with TD fentanyl, but he has not been able to sleep due to pain keeping him awake and awakening him from sleep. . Movement aggravates his pain and he was unable to identify relieving factors. Recently (06/25) discharged on TD fentanyl 25mcg/hr and oxycodone 5mg q4h PRN for BTP. reports that he has been taking oxyIR regularly every 4-5hrs without adequate relief and unable to sleep due to anxiety and pain. Discussed increase of TD fentanyl to offer more consistent pain coverage and allow for better sleep patterns. Pt and are agreeable. Increase TD fentanyl to 37mcg/hr patch Q72hr continue PRN oxyIR 5mg PO q4h PRN for BTP (2) Insomnia due to anxiety and fear: Pt states that he has difficulty sleeping due to pain as well as "racing thoughts". His reports that she also is not getting sleep because he has been both confused and impulsive and she is concerned with his safety. Discussed good sleep hygiene as well as adding trazadone for better sleep. ADD trazadone 25 mg PO HS ZEB (3) Delirium: likely multifactorial with contributing factors of sleep deprivation, medications, pain, anxiety, worsening liver function, nutrition and progression of pancreatic cancer. Head CT completed with no acute changes. Pt c/o visual hallucinations and agitation which exacerbate his insomnia. He and his attribute delirium to sleep deprivation. Unfortunately there are no known medications to cure or shorten the duration of delirium; rather PRN antipsychotics are recommended to help with sleep/appetite/psychomotor agitation and hallucinations if these symptoms are causing significant distress and/or interfering with acute safety. Duration of delirium varies broadly with persistent delirium (defined as lasting for weeks or months) occurring frequently with [id number]% of patients exhibiting some symptoms of delirium at 6 months after symptom onset, see:Nato Stovall., Stephanie Moore., Sivan Menezes.et al.Delirium.Patricia Rev Dis Primers6, 90 (2020). [email or web address]/[email or web address]. Goal s to avoid medication management of behaviors if possible by maximizing non-pharmacologic strategies for behavioral management. However, given ongoing agitation/aggression/restlessness agree with use of antipsychotic as risk/benefit profile favors treatment and so long as benefits are being seen without significant side effects. Note all antipsychotic medications carry black box warning for increased risk of all-cause mortality in setting of dementia/cognitive changes and metabolic side effects can increase risk for cardiac and CVA events. Standard Delirium Care - Search for occult etiologies of delirium including toxic, metabolic, and infectious. Medication effects and drug/ETOH withdrawal should also be sought. - Avoid restraints other than lap belts. Redirection by family/friends, or med [facility] staff is more effective and promotes recovery. - Encourage patient to wear glasses and hearing aides as appropriate - Encourage 24 hour visitation from family/friends - Encourage family/friends to redirect patient to avoid need for meds/restraints - Avoids benzos - Use atypical neuroleptics in a low scheduled dose in combination with PRN for agitation - *Please note: the atypical Neuroleptics are associated with a slight but real increased in MACE and should be used sparingly especially in the assisted - Low dose IV morphine can be used with caution if neuroleptics fail for acute delirium - Redirection by family, friends, and medical staff can be more effective and safer than medication use. - Pain causes delirium and should be addressed in a balanced, conservative, but effective manner. - During the day, patient should be awake. Lights should be on. TV should be on. Patient should be placed in chair with restraints if possible and allowed into bolden or outside in wheelchair if can tolerate. - At night, lights should be dimmed and stimulation should be minimized. A scheduled dose of neuroleptic may be given at least 2 hours prior to typical onset of - Room noises can cause anxiety inducing hallucinations. If the room is loud, has atypical noises (construction, beeping, loud neighbor, etc) or patient is having negative reaction to ambient stimuli, patient should be moved to another room - Nutritional status should be addressed. Any nutritional deficits should be aggressively remediated. - High carbohydrate meals should be served. Discussed with patient and and encouraged reorientation as appropriate, sleep hygeine, and better pain management. Trazadone QHS added to meds for better sleep and pain medications adjusted (see #4) (4) Cancer-related breakthrough pain: reports that the patient had been taking oxyIR for breakthrough pain every 4-5 hrs over past week and he has not been sleeping de to severe pain. Long acting opiates increased (TD fentanyl) for more consistent pain mgmt. continue PRN oxyIR 5mg q4h. (5) Palliative care by specialist: Met with Sal and his (Sonia at bedside). Introduced Palliative Medicine and explained our role in advanced care planning, symptom management and navigation through the progression of life limiting disease. Patient and/or family were receptive to palliative services for goals of care discussions. Reviewed we are different from hospice, a home health nurse visiting service. Plan as above History of Present Illness Reason for Consultation: pain mgmt/GOC Requesting Physician: Everett Amezcua MD Attending Physician: Everett Amezcua MD History of Present Illness Sal is a 64y male PMHx pancreatic cancer with mets, T2DM, BAUTISTA, AFib on rivaroxaban, BPH, and HLD presenting with his for increasing confusion over past several days. On my assessment pt remains confused and unable to provide a clear chronologic HPI. shared that the pt has had constant pain since he was discharged, she shared that he had been consistently taking PRN oxycodone every 6h without much relief and was told by his PCP to take Q4h PRN last week. reports very poor PO intake, insomnia with minimal sleep for several days, progressive confusion and hallucinations. Pt was recently (06/16 - 06/25) admitted for back pain, abdominal bloating/distention, n/v, and decreased appetite found to have an assumed metastatic pancreatic cancer. During this admission he had liver biopsy, pathology is pending. He was discharged on TD fentanyl 25mcg/hr and oxycodone 5mg q4h PRN for BTP with plan to follow up as outpt with Dr Greco for results/treatment options. Allergies Allergy/AdvReac Type Severity Reaction Status Date / Time No Known Allergies Allergy Verified 07/02/25 23:54 Home Medications Medication Instructions Recorded Confirmed Type vit 2 tab PO QAM 02/27/21 07/02/25 History [id number] 500 mg-50 mg-25 mg-40 mg tablet (Bioflex) finasteride 5 mg tablet 5 mg PO DAILY #90 tabs 09/05/24 07/02/25 Rx rivaroxaban 20 mg tablet (Xarelto) 20 mg PO QPM #90 tabs 09/25/24 07/02/25 Rx dronedarone 400 mg tablet (Multaq) 400 mg PO BID #180 tabs 03/18/25 07/02/25 Rx famotidine 40 mg tablet 40 mg PO QAM #90 tabs 03/20/25 07/02/25 Rx fentanyl 25 mcg/hr transdermal 1 patch transdermal Q3D #5 ea 06/25/25 07/02/25 Rx patch oxycodone 5 mg tablet 5 mg PO Q6H PRN pain #45 tabs 06/25/25 07/02/25 Rx polyethylene glycol 3350 17 gram 17 g PO BID #30 ea 06/25/25 07/02/25 Rx oral powder packet (Miralax) sennosides 8.6 mg tablet (Senna 8.6 mg PO HS #30 tabs 06/25/25 07/02/25 Rx Lax) escitalopram oxalate 10 mg tablet 10 mg PO QAM #90 tabs 06/26/25 07/02/25 Rx esomeprazole magnesium 20 mg 20 mg PO BID #180 caps 06/26/25 07/02/25 Rx capsule,delayed release metoprolol succinate 25 mg 25 mg PO QAM #90 tabs 06/26/25 07/02/25 Rx tablet,extended release 24 hr Patient History Medical History Atrial fibrillation Sleep apnea Morbid (severe) obesity due to excess calories Mass of pancreas History of cardioversion 06/17/22, [place]; f/u dr ell[place], [place]; 07/[place], [place] GERD (gastroesophageal reflux disease) ADD (attention deficit disorder) Anxiety and depression History of COVID-19 03/23/22>home test *a-fib occured Sleep apnea cpap used Surgical History History of cardiac radiofrequency ablation 09/2022, [facility] [place]; f/u Dr. Castro, [place] History of tooth extraction Hx of LASIK Hx of cholecystectomy H/O hernia repair Family History Brother History of kidney cancer Unknown Diabetes Hypertension Father Stroke Mother Stroke Other No family history of adverse response to anesthesia Denies family history of Colon cancer Ovarian cancer Prostate cancer Myocardial infarction Breast cancer Social History Smoking Status: Never smoker Second Hand Exposure: No; Do You Dip or Chew Tobacco: No; Hx Alcohol Use: Yes Alcohol type: wine Hx Substance Use: No Preferred Language: Amharic Communication Ability: Effective Visual Impairment: No Limitations Hearing Ability: Normal Pressure Test Operator Required: No Beliefs That Will Affect Care: None marital status: Current Living Situation: Spouse 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 Musculoskeletal: back pain, lower lumbar Physical Exam Constitutional: WD/WN, vitals as above + ill appearing, + morbidly obese and cooperative Eyes: PERRL, conjunctivae normal, anicteric sclerae Neck: trachea midline, no thyromegaly Respiratory: normal respiratory effort, lungs clear to auscultation Cardiovascular: RRR, no murmur, no edema Gastrointestinal (Abdomen): Inspection/Auscultation: + hypoactive bowel sounds Percussion/Palpation: + abdomen tender (tender along periumbilical area ) and abdomen soft; no guarding, abdomen not rigid and no hepatosplenomegaly Musculoskeletal: no cyanosis or clubbing, extremities motor strength 5/5 Skin: no rashes, warm and dry Neurologic: PERRL, EOMI, accommodation nl, no face palsy, no dysarthria Psychiatric: A+Ox3, euthymic affect Results & Data Vital Signs (Past 12 Hours) Vital Signs Temp Pulse Pulse Resp BP BP Pulse Ox 07/03/25 09:45 07/03/25 07:49 36.8 C 91 H 19 99/63 L 93 07/03/25 05:20 87 07/03/25 05:15 07/03/25 04:54 36.4 C L 83 20 109/75 93 07/03/25 04:53 07/03/25 04:28 83 07/03/25 04:00 82 17 103/80 97 07/03/25 03:00 82 17 100/81 94 07/03/25 01:00 82 16 107/60 95 07/03/25 00:23 88 07/02/25 23:23 83 17 137/79 93 07/02/25 23:23 93 07/02/25 23:23 93 O2 Del Method O2 Del Method 07/03/25 09:45 Room Air 07/03/25 07:49 Room Air 07/03/25 05:20 07/03/25 05:15 Room Air 07/03/25 04:54 Room Air 07/03/25 04:53 Room Air 07/03/25 04:28 07/03/25 04:00 Room Air 07/03/25 03:00 Room Air 07/03/25 01:00 Room Air 07/03/25 00:23 07/02/25 23:23 Room Air 07/02/25 23:23 Room Air 07/02/25 23:23 Room Air Laboratory Results Abnormal lab results 07/02/25 07/03/25 07/03/25 Range/Units 23:23 01:44 07:01 WBC 17.05 H (4.8-10.8) K/ul RBC 4.06 L (4.70-6.10) M/uL Hgb 12.1 L (14.0-18.0) g/dl Hct 36.0 L (42.0-52.0) % RDW Std Deviation 57.4 H (36.4-46.3) fL RDW Coeff of Cruzito 18.4 H (11.5-14.5) % Neut # (Auto) 10.37 H (1.40-6.50) K/uL Lymph # (Auto) 3.58 H (1.20-3.40) K/uL Butler # (Auto) 2.24 H (0.11-0.59) K/uL Eos # (Auto) 0.58 H (0.00-0.50) K/uL Sodium 125 L 127 L (136-145) mmol/L Chloride 94 L (98-107) mmol/L Glucose 151 H (70-99(Fasting)) mg/dl Total Bilirubin 11.8 H (0.2-1.0) mg/dl AST 157 H (13-39) U/L ALT 116 H (7-52) U/L Alkaline Phosphatase 830 H (34-104) U/L Albumin 2.4 L (3.4-5.0) gm/dl Globulin 5.1 H (2.5-4.0) gm/dl Albumin/Globulin Ratio 0.5 L (0.9-2) Urine Appearance Cloudy A (Clear) Urine Protein 1+ H (Negative) Urine Nitrite Positive A (Negative) Urine Bilirubin 3+ H (Negative) Urine Urobilinogen Positive H (Negative) Ur Leukocyte Esterase 1+ H (Negative) Urine RBC (Auto) 6-10 H (0-2) /hpf U Hyaline Cast (Auto) 11-20 H (0-2) /lpf U Epithel Cells (Auto) 6-10 H (0-2) /hpf Urine Mucus Present A (None Prsent) 07/03/25 Range/Units 10:11 WBC (4.8-10.8) K/ul RBC (4.70-6.10) M/uL Hgb (14.0-18.0) g/dl Hct (42.0-52.0) % RDW Std Deviation (36.4-46.3) fL RDW Coeff of Cruzito (11.5-14.5) % Neut # (Auto) (1.40-6.50) K/uL Lymph # (Auto) (1.20-3.40) K/uL Butler # (Auto) (0.11-0.59) K/uL Eos # (Auto) (0.00-0.50) K/uL Sodium 125 L (136-145) mmol/L Chloride (98-107) mmol/L Glucose (70-99(Fasting)) mg/dl Total Bilirubin (0.2-1.0) mg/dl AST (13-39) U/L ALT (7-52) U/L Alkaline Phosphatase (34-104) U/L Albumin (3.4-5.0) gm/dl Globulin (2.5-4.0) gm/dl Albumin/Globulin Ratio (0.9-2) Urine Appearance (Clear) Urine Protein (Negative) Urine Nitrite (Negative) Urine Bilirubin (Negative) Urine Urobilinogen (Negative) Ur Leukocyte Esterase (Negative) Urine RBC (Auto) (0-2) /hpf U Hyaline Cast (Auto) (0-2) /lpf U Epithel Cells (Auto) (0-2) /hpf Urine Mucus (None Prsent) Diagnostic Findings Head CT 07/03/25 01:58 EXAM: CT head/brain wo con CLINICAL HISTORY: eval for mets TECHNIQUE: Multiple axial images were obtained from the skull base to the vertex without contrast. CT scan was performed according to ALARA (as low as reasonably achievable). 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 FINDINGS: There is cerebral atrophy. No evidence of space-occupying lesion, hemorrhage, edema, mass effect, midline shift, extra-axial collection, or hydrocephalus is noted. The basal cisterns are symmetric and normal in size and configuration. There are scattered periventricular hypodensities, as can be seen with chronic microvascular ischemic changes. The jones-white matter differentiation is preserved. The visualized paranasal sinuses and mastoid air cells are well aerated. Orbital contents are within normal limits. Bony structures are intact. IMPRESSION: 1. No evidence of acute intracranial abnormality is demonstrated. 2. Chronic microvascular ischemic changes, stable. 3. Cerebral atrophy, stable. Electronically signed by Dave Lester 07-03-2025 03:05 AM Medications Administered Current Inpatient Medications Escitalopram Oxalate (Escitalopram Oxalate 10 Mg Tab) 10 mg PO QAM ZEB Stop: 08/02/25 08:59 Last Admin: 07/03/25 08:20 Dose: 10 mg Famotidine (Famotidine 40 Mg Tablet) 40 mg PO QAM ZEB Stop: 08/02/25 08:59 Last Admin: 07/03/25 08:20 Dose: 40 mg Fentanyl (Fentanyl 25 Mcg/Hr Tdsy) 1 patch TD Q3D@0900 ZEB Stop: 07/17/25 08:59 Last Admin: 07/03/25 08:19 Dose: 1 patch Finasteride (Finasteride 5 Mg Tab) 5 mg PO DAILY ZEB Stop: 08/02/25 08:59 Last Admin: 07/03/25 08:20 Dose: 5 mg Melatonin (Melatonin 3 Mg Tab) 3 mg PO HS PRN PRN Reason: Sleep Stop: 08/02/25 04:52 Metoprolol Succinate (Metoprolol Succ 25mg Ext Rel Tab) 25 mg PO QAM [facility] Stop: 08/02/25 08:59 Last Admin: 07/03/25 08:20 Dose: 25 mg Miconazole Nitrate (Miconazole Nitrate Powder 85 Gm) 1 appln EXT PRN PRN PRN Reason: Affected Skin Folds Stop: 08/02/25 08:04 Miscellaneous (Fentanyl Patch Remove & Waste) 1 each N/A Q3D@0859 ZEB Stop: 08/02/25 08:58 Last Admin: 07/03/25 08:21 Dose: 1 each Miscellaneous (Check Fentanyl Patch Placement) 1 each N/A QS [facility] Stop: 08/02/25 04:59 Last Admin: 07/03/25 08:21 Dose: 1 each Ondansetron HCl (Ondansetron Inj 2 Mg/Ml 2 Ml Vial) 4 mg IV Q6H PRN PRN Reason: Nausea Stop: 08/02/25 04:52 Oxycodone HCl (Oxycodone Hcl Ir 5 Mg Tab (Immediate Release)) 5 mg PO Q6H PRN PRN Reason: pain Stop: 07/17/25 04:52 Last Admin: 07/03/25 08:19 Dose: 5 mg Pantoprazole Sodium (Pantoprazole 40 Mg Tab) 40 mg PO BID ZEB Stop: 08/02/25 08:59 Last Admin: 07/03/25 08:20 Dose: 40 mg Polyethylene Glycol (Polyethylene (Miralax) 17 Gm Pack) 17 gm PO BID ZEB Stop: 08/02/25 08:59 Last Admin: 07/03/25 08:19 Dose: 17 gm Sennosides (Senna 8.6 Mg Tab) 8.6 mg PO HS [facility] Stop: 08/02/25 20:59 Sodium Chloride (Sodium Chloride 1 Gm Tablet) 1 gm PO BID [facility] Stop: 08/02/25 09:14 Last Admin: 07/03/25 09:59 Dose: 1 gm Trazodone HCl (Trazodone Hcl 50 Mg Tab) 25 mg PO HS [facility] Stop: 08/02/25 20:59 PG Care Time/CCT Total # of Minutes Spent Total Time Spent with Patient: Total time spent is greater than 50% in coordination of care (as documented) at patient's floor/unit and/or counseling patient: [place] [address] IN/OBS CONSULT LVL 4,60M Patient Type New History Expanded Problem Focused Exam Expanded Problem Focused Medical Decision Making Low Complexity Diagnoses Cancer related pain G89.3 Insomnia due to anxiety and fear F51.05; F40.9 Delirium R41.0 Cancer-related breakthrough pain G89.3 Palliative care by specialist Z51.5
[2025-07-03] MEDS: LORazepam 0.5 MG TAB PO PRN (12:39)
[2025-07-03 13:42] LABS: Hematocrit (blood only) 34.6 % (42.0-52.0); Hemoglobin 11.6 g/dl (14.0-18.0); Mean Corpuscular Hemoglobin 29.9 pg (25.0-34.0); Mean Corpuscular Volume 89.2 fL (80.0-100.0); Platelet Count 278 K/uL (130-400); RDW Standard Deviation 57.7 fL (36.4-46.3); Red Blood Count 3.88 M/uL (4.70-6.10); White Blood Count 14.48 K/ul (4.8-10.8)
[2025-07-03 13:53] LABS: Alanine Aminotransferase 107.0 U/L (7-52); Albumin Globulin Ratio 0.5 (0.9-2); Albumin Level 2.3 gm/dl (3.4-5.0); Alkaline Phosphatase 757.0 U/L (34-104); Anion Gap 6.0 (3-11); Bilirubin,Total 12.2 mg/dl (0.2-1.0); Blood Urea Nitrogen 19.0 mg/dl (6-23); Calcium 9.6 mg/dl (8.6-10.3); Carbon Dioxide 24.0 mmol/L (21-32); Chloride 96.0 mmol/L (98-107); Creatinine Clr Calc Pharmacy 113.0 ml/min; Globulin 4.8 gm/dl (2.5-4.0); Glucose 152.0 mg/dl (70-99(Fasting)); Potassium 4.9 mmol/L (3.5-5.1); Sodium 126.0 mmol/L (136-145); Total Protein 7.1 gm/dl (6.0-8.3)
[2025-07-03 14:07] LABS: INR 2.6 (0.9-1.1); Prothrombin Time 25.9 Seconds (9.0-12.0)
[2025-07-03] MEDS: CHECK SCH (15:49)
[2025-07-03] MEDS: FENTANYL SCH (15:49)
[2025-07-03] MEDS: SODIUM CHLORIDE 0.9% 500 ML IV ONE (15:49)
[2025-07-03 17:19] LABS: Base Excess VBG 1.0 mEq/L; HCO3 VBG 25 mmol/L; Oxygen Saturation VBG 82.3 %; PCO2 VBG 38 mmHg (38-50); PO2 VBG 51 mmHg; pH VBG 7.43 (7.36-7.41)
--- NOTE | 2025-07-03 17:26 | Oncology Consultation ---
Date of Consultation July 03, 2025 Assessment & Plan (1) Pancreatic cancer: (2) Pancreatic carcinoma metastatic to liver: Plan Altered mental status likely multifactorial due to hyperbilirubinemia and hyponatremia. Recommend obtaining abdominal ultrasound to evaluate for biliary dilatation to see if he would benefit from stent placement. Unfortunately, overall prognosis is very poor In the setting of metastatic pancreatic cancer with widespread disease and agree with palliative care involvement to discuss goals of care with patient and his . History of Present Illness Reason for Consultation: Pancreatic cancer Attending Physician: Everett Amezcua MD History of Present Illness 64-year-old gentleman recently diagnosed with widely metastatic pancreatic cancer admitted to [facility] with altered mental status. Labs significant for hyponatremia with sodium of 125, hyperbilirubinemia with total bilirubin of 12.2. Allergies Allergy/AdvReac Type Severity Reaction Status Date / Time No Known Allergies Allergy Verified 07/02/25 23:54 Home Medications Medication Instructions Recorded Confirmed Type vit 2 tab PO QAM 02/27/21 07/02/25 History [id number] 500 mg-50 mg-25 mg-40 mg tablet (Bioflex) finasteride 5 mg tablet 5 mg PO DAILY #90 tabs 09/05/24 07/02/25 Rx rivaroxaban 20 mg tablet (Xarelto) 20 mg PO QPM #90 tabs 09/25/24 07/02/25 Rx dronedarone 400 mg tablet (Multaq) 400 mg PO BID #180 tabs 03/18/25 07/02/25 Rx famotidine 40 mg tablet 40 mg PO QAM #90 tabs 03/20/25 07/02/25 Rx fentanyl 25 mcg/hr transdermal 1 patch transdermal Q3D #5 ea 06/25/25 07/02/25 Rx patch oxycodone 5 mg tablet 5 mg PO Q6H PRN pain #45 tabs 06/25/25 07/02/25 Rx polyethylene glycol 3350 17 gram 17 g PO BID #30 ea 06/25/25 07/02/25 Rx oral powder packet (Miralax) sennosides 8.6 mg tablet (Senna 8.6 mg PO HS #30 tabs 06/25/25 07/02/25 Rx Lax) escitalopram oxalate 10 mg tablet 10 mg PO QAM #90 tabs 06/26/25 07/02/25 Rx esomeprazole magnesium 20 mg 20 mg PO BID #180 caps 06/26/25 07/02/25 Rx capsule,delayed release metoprolol succinate 25 mg 25 mg PO QAM #90 tabs 06/26/25 07/02/25 Rx tablet,extended release 24 hr Patient History Medical History Atrial fibrillation Sleep apnea Morbid (severe) obesity due to excess calories Mass of pancreas History of cardioversion 06/17/22, [place]; f/u dr ellison, [place]; 07/[place], [place] GERD (gastroesophageal reflux disease) ADD (attention deficit disorder) Anxiety and depression History of COVID-19 03/23/22>home test *a-fib occured Sleep apnea cpap used Surgical History [place] cardiac [place] [facility] [place] Dr. Castro, [facility] History of tooth extraction Hx of LASIK Hx of cholecystectomy H/O hernia repair Family History Brother History of kidney cancer Unknown Diabetes Hypertension Father Stroke Mother Stroke Other No family history of adverse response to anesthesia Denies family history of Colon cancer Ovarian cancer Prostate cancer Myocardial infarction Breast cancer Social History Smoking Status: Never smoker Second Hand Exposure: No; Do You Dip or Chew Tobacco: No; Hx Alcohol Use: Yes Alcohol type: wine Hx Substance Use: No Preferred Language: Malagasy Communication Ability: Effective Visual Impairment: No Limitations Hearing Ability: Normal Living Skills Advisor Required: No Beliefs That Will Affect Care: None marital status: Current Living Situation: Spouse 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
[2025-07-03] MEDS: SENNA 8.6 MG TAB PO SCH (20:56)
[2025-07-03] MEDS: MELATONIN 3 MG TAB PO PRN (20:56)
[2025-07-03] MEDS: MICONAZOLE NITRATE POWDER 85 GM EXT PRN (20:56)
[2025-07-03] MEDS ORDERED: RIVAROXABAN 20 MG TAB PO SCH (21:00)
--- NOTE | 2025-07-03 21:40 | Ultrasound Report ---
Exam(s): US LIVER EXAM: US Abdomen Limited, Right Upper Quadrant CLINICAL HISTORY: Reason for exam: hyperbilirubinemia evaluate for biliary dilatation. TECHNIQUE: Real-time ultrasound of the right upper quadrant with image documentation. COMPARISON: No relevant prior studies available. FINDINGS: Exam is limited secondary to body habitus and shadowing. Liver: Innumerable metastatic lesions in the liver. Index lesion right hepatic lobe measuring 4.8 x 3.9 x 4.8 cm. Liver measures 18.4 cm. Patent portal vein with hepatopetal flow. Gallbladder: Cholecystectomy. Common bile duct: CBD measures 0.4 cm. Pancreas: Pancreas is obscured by shadowing bowel gas. Right kidney: Unremarkable. No hydronephrosis. IMPRESSION: 1. Innumerable metastatic lesions in the liver. 2. No biliary dilatation. Electronically signed by: Graham Salmeron MD 07/03/25 21:39 PM
[2025-07-04] MEDS: LACTULOSE SYRUP 20 GM/30 ML UDC PO SCH (08:10)
[2025-07-04 08:13] LABS: Anion Gap 5.0 (3-11); Blood Urea Nitrogen 18.0 mg/dl (6-23); Calcium 9.7 mg/dl (8.6-10.3); Carbon Dioxide 26.0 mmol/L (21-32); Chloride 97.0 mmol/L (98-107); Creatinine Clr Calc Pharmacy 131.0 ml/min; Glucose 137.0 mg/dl (70-99(Fasting)); Potassium 4.4 mmol/L (3.5-5.1); Sodium 128.0 mmol/L (136-145)
--- NOTE | 2025-07-04 08:28 | Palliative Care Progress Note ---
Date of Service July 04, 2025 Assessment & Plan (1) Cancer related pain: Plan: Pt c/o abdominal RUQ pain that radiates across to LUQ; intermittent sharp stabbing pain in lower right chest to epigastric region. He shared that prior to admission pain has been improved with TD fentanyl, but he has not been able to sleep due to pain keeping him awake and awakening him from sleep. . Movement aggravates his pain and he was unable to identify relieving factors. Recently (06/25) discharged on TD fentanyl 25mcg/hr and oxycodone 5mg q4h PRN for BTP. Continue TD fentanyl to 37mcg/hr patch Q72hr Pt transitioned to [employer] today, see below for additional recs for symptom mgmt. (2) Delirium: Plan: likely multifactorial with contributing factors of sleep deprivation, medications, pain, anxiety, worsening liver function, nutrition and progression of pancreatic cancer. Head CT completed with no acute changes. Pt c/o visual hallucinations and agitation which exacerbate his insomnia. He and his attribute delirium to sleep deprivation. Largely likely 2/2 decompensated liver failure, pt transitioned to [employer]AFETY 07/04/25. Mgmt recs below. (3) Palliative care by specialist: Plan: Palliative care will continue to follow for ongoing EOL pt care and family support. (4) Counseling regarding goals of care: Plan: 11:30 - 11:40 discussion held with pt's Phoebe at bedside, Dr [facility] was present for entire discussion. Sonia shared concern that pt is dying, citing the dramatic changes in his condition overnight. SHe sharaed that when she first saw him this morning she realized that he will not survive to discharge. SHe shared that Dr. Greco had met with them yesterday and offered chemotherapy, but also said that "he would need to be in better condition mentally" in order to receive chemotherapy. We discussed pt's poor health, and prognosis of days to weeks given his current trajectory and decompensated liver failure. Sonia shared that she would like to transition to comfort care at this time. We discussed three levels of care/environments for hospice care and criteria for each. She shared that SNF with hospice would not be an option, but sh is also unsure if she could offer the care required at home. Dr Szymanski shared concern that the window of opportunity for pt to leave hospital with hospice is narrow given his current trajectory. Pt's daughter Jenniffer joined discussion by phone at this time. We reinforced pt is currently critically ill in liver failure 2/2 cancer with likely prognosis of days to weeks and enciuraged visitation. (5) Comfort measures only status: Plan: Comfort plan of care parameters: 1. Patient/Family want hospice added to their care. 2. NO rehab/PT/OT 3. Strictly End of Life care only 4. NO escalation of care: do not increase oxygen, escalate therapies, etc. The focus is on comfort through end of life, assure this is accomplished with aggressive symptom management (i.e. relief of dyspnea, pain, etc.) 5. NO return to hospital 6. NO labs, imaging, surgery 7. Oral intake as desired for comfort and pleasure: NO dietary restriction, Allow permissive aspiration, do not withhold food or drink for concern of aspiration and allow PO for pleasure and comfort. 8. If difficulty urinating/commode/bedpan, ok to place Gaona catheter for comfort/hygiene/skin protection AND/OR Continue Gaona catheter for comfort/hygiene/skin protection 9. NO: calorie counts, artificial nutrition, feeding tubes or IV fluids EOL Symptom manamgement: Continue duragesic patch for pain Pain/dyspnea/tachypnea dilaudid 0.5mg IVP PRN [id number] Consider titratable dilaudid drip if pt requires >3 PRN doses in under two consecutive hours. Nausea/vomitting zofran 4mg IVP q4h PRN Agitation ativan 0.5mg IVP q4h PRN Hyperactive delirium haldol 5mg IVP q6h PRN Secretions - if repositioning not effective robinul 0.4mg IV q4h PRN atropine SL 3 drops Q1h PRN Nursing care: Discontinue all medications not directed towards comfort. Detether pt from IV tubing, monitor cables, and check vitals once per shift. Please continue HFNC and titrate down as able for patient comfort. Use medications above PRN for dyspnea/tachypnea and do not increase oxygen once titrated down. Assess q1h for pain/dyspnea and treat accordingly. Plan as above Admission and Anticipated Discharge Date Admission Date: July 03, 2025 Subjective Pt appears more jaundiced and lethargic today. Obtunded with pronounced dermal and scleral jaundice that has worsened over past 24h. Pt remains impulsive when he is awake, but mostly sleeping when unprovoked. at bedside. Review of Systems Review of Systems: pt c/o abdominal RUQ pain that radiates across to LUQ; intermittent sharp stabbing pain in lower right chest to epigastric region. Musculoskeletal: back pain, lower lumbar Neurologic: + confusion pt able to identify his confusion and distinguish hallucinations from reality Physical Exam Constitutional: WD/WN, vitals as above + ill appearing, + morbidly obese and cooperative Eyes: PERRL, conjunctivae normal, anicteric sclerae Neck: trachea midline, no thyromegaly Respiratory: normal respiratory effort, lungs clear to auscultation Cardiovascular: RRR, no murmur, no edema Gastrointestinal (Abdomen): Inspection/Auscultation: normal bowel sounds Percussion/Palpation: + abdomen tender (tender along periumbilical area ) and abdomen soft; no guarding, abdomen not rigid and no hepatosplenomegaly Musculoskeletal: no cyanosis or clubbing, extremities motor strength 5/5 Skin: no rashes, warm and dry Neurologic: PERRL, EOMI, accommodation nl, no face palsy, no dysarthria Psychiatric: A+Ox3, euthymic affect Results & Data Vital Signs (Past 12 Hours) Vital Signs Temp Pulse Pulse Resp BP BP Pulse Ox 07/04/25 08:15 58 L 117/77 07/04/25 07:01 36.4 C L 53 L 20 101/67 93 07/04/25 04:53 07/04/25 02:39 36.6 C 56 L 18 121/69 91 07/03/25 23:51 07/03/25 23:04 36.7 C 69 17 127/78 92 O2 Del Method O2 Del Method 07/04/25 08:15 07/04/25 07:01 Room Air 07/04/25 04:53 Room Air 07/04/25 02:39 Room Air 07/03/25 23:51 Room Air 07/03/25 23:04 Room Air Laboratory Results Abnormal lab results 07/03/25 07/03/25 07/03/25 Range/Units 10:11 12:53 12:53 WBC 14.48 H (4.8-10.8) K/ul RBC 3.88 L (4.70-6.10) M/uL Hgb 11.6 L (14.0-18.0) g/dl Hct 34.6 L (42.0-52.0) % RDW Std Deviation 57.7 H (36.4-46.3) fL RDW Coeff of Cruzito 18.6 H (11.5-14.5) % PT 25.9 H (9.0-12.0) Seconds INR 2.6 H (0.9-1.1) VBG pH (7.36-7.41) Sodium 125 L 127 L 126 L (136-145) mmol/L Chloride 96 L (98-107) mmol/L BUN/Creatinine Ratio (10-20) Glucose 152 H (70-99(Fasting)) mg/dl Total Bilirubin 12.2 H (0.2-1.0) mg/dl AST 152 H (13-39) U/L ALT 107 H (7-52) U/L Alkaline Phosphatase 757 H (34-104) U/L Albumin 2.3 L (3.4-5.0) gm/dl Globulin 4.8 H (2.5-4.0) gm/dl Albumin/Globulin Ratio 0.5 L (0.9-2) 07/03/25 07/03/25 07/04/25 Range/Units 16:58 20:41 00:34 WBC (4.8-10.8) K/ul RBC (4.70-6.10) M/uL Hgb (14.0-18.0) g/dl Hct (42.0-52.0) % RDW Std Deviation (36.4-46.3) fL RDW Coeff of Cruzito (11.5-14.5) % PT (9.0-12.0) Seconds INR (0.9-1.1) VBG pH 7.43 H (7.36-7.41) Sodium 126 L 126 L 127 L (136-145) mmol/L Chloride (98-107) mmol/L BUN/Creatinine Ratio (10-20) Glucose (70-99(Fasting)) mg/dl Total Bilirubin (0.2-1.0) mg/dl AST (13-39) U/L ALT (7-52) U/L Alkaline Phosphatase (34-104) U/L Albumin (3.4-5.0) gm/dl Globulin (2.5-4.0) gm/dl Albumin/Globulin Ratio (0.9-2) 07/04/25 Range/Units 07:38 WBC (4.8-10.8) K/ul RBC (4.70-6.10) M/uL Hgb (14.0-18.0) g/dl Hct (42.0-52.0) % RDW Std Deviation (36.4-46.3) fL RDW Coeff of Cruzito (11.5-14.5) % PT (9.0-12.0) Seconds INR (0.9-1.1) VBG pH (7.36-7.41) Sodium 128 L (136-145) mmol/L Chloride 97 L (98-107) mmol/L BUN/Creatinine Ratio 22.0 H (10-20) Glucose 137 H (70-99(Fasting)) mg/dl Total Bilirubin (0.2-1.0) mg/dl AST (13-39) U/L ALT (7-52) U/L Alkaline Phosphatase (34-104) U/L Albumin (3.4-5.0) gm/dl Globulin (2.5-4.0) gm/dl Albumin/Globulin Ratio (0.9-2) Diagnostic Findings Head CT 07/03/25 01:58 EXAM: CT head/brain wo con CLINICAL HISTORY: eval for mets TECHNIQUE: Multiple axial images were obtained from the skull base to the vertex without contrast. CT scan was performed according to ALARA (as low as reasonably achievable). COMPARISON: 12:50:04 FIRST DYER. FINDINGS: There is cerebral atrophy. No evidence of space-occupying lesion, hemorrhage, edema, mass effect, midline shift, extra-axial collection, or hydrocephalus is noted. The basal cisterns are symmetric and normal in size and configuration. There are scattered periventricular hypodensities, as can be seen with chronic microvascular ischemic changes. The jones-white matter differentiation is preserved. The visualized paranasal sinuses and mastoid air cells are well aerated. Orbital contents are within normal limits. Bony structures are intact. IMPRESSION: 1. No evidence of acute intracranial abnormality is demonstrated. 2. Chronic microvascular ischemic changes, stable. 3. Cerebral atrophy, stable. Electronically signed by Dave Lester 07-03-2025 03:05 AM Liver Ultrasound 07/03/25 16:48 Exam(s): US LIVER EXAM: US Abdomen Limited, Right Upper Quadrant CLINICAL HISTORY: Reason for exam: hyperbilirubinemia evaluate for biliary dilatation. TECHNIQUE: Real-time ultrasound of the right upper quadrant with image documentation. COMPARISON: No relevant prior studies available. FINDINGS: Exam is limited secondary to body habitus and shadowing. Liver: Innumerable metastatic lesions in the liver. Index lesion right hepatic lobe measuring 4.8 x 3.9 x 4.8 cm. Liver measures 18.4 cm. Patent portal vein with hepatopetal flow. Gallbladder: Cholecystectomy. Common bile duct: CBD measures 0.4 cm. Pancreas: Pancreas is obscured by shadowing bowel gas. Right kidney: Unremarkable. No hydronephrosis. IMPRESSION: 1. Innumerable metastatic lesions in the liver. 2. No biliary dilatation. Electronically signed by: Graham Salmeron MD 07/03/25 21:39 PM Medications Administered Current Inpatient Medications Acetaminophen (Acetaminophen 325 Mg Tab) 650 mg PO Q6H PRN PRN Reason: Fever 37.8C or Above Stop: 08/03/25 12:20 Acetaminophen (Acetaminophen 650 Mg Supp) 650 mg TX Q6H PRN PRN Reason: Fever 37.8C or Above Stop: 08/03/25 12:20 Escitalopram Oxalate (Escitalopram Oxalate 10 Mg Tab) 10 mg PO QAM [facility] Stop: 08/02/25 08:59 Last Admin: 07/04/25 08:12 Dose: 10 mg Famotidine (Famotidine 40 Mg Tablet) 40 mg PO QAM [facility] Stop: 08/02/25 08:59 Last Admin: 07/04/25 08:12 Dose: 40 mg Fentanyl (Fentanyl 25 Mcg/Hr Tdsy) 1 patch TD Q3D@0900 [facility] Stop: 07/17/25 08:59 Last Admin: 07/03/25 08:19 Dose: 1 patch Fentanyl (Fentanyl 12 Mcg/Hr Tdsy) 1 patch TD Q3D [facility] Stop: 07/17/25 12:14 Last Admin: 07/03/25 12:39 Dose: 1 patch Finasteride (Finasteride 5 Mg Tab) 5 mg PO DAILY [facility] Stop: 08/02/25 08:59 Last Admin: 07/04/25 08:13 Dose: 5 mg Glycopyrrolate (Glycopyrrolate 0.2 Mg/Ml Vial) 0.4 mg IV Q4H PRN PRN Reason: Rattling Secretions or Pulm Congestion Stop: 08/03/25 12:20 Haloperidol Lactate (Haloperidol Lactate 5 Mg/Ml 1 Ml Vial) 1 mg IV Q6H PRN PRN Reason: agitation/anxiety Stop: 08/03/25 11:48 Hydromorphone HCl (Hydromorphone Inj 0.5 Mg/0.5 Ml Syr) 0.5 mg IV Q2H PRN PRN Reason: Pain or Respiratory Distress Stop: 07/18/25 12:20 Last Admin: 07/04/25 13:04 Dose: 0.5 mg Lorazepam 0.5 mg/ Syringe 0.5 mls @ 2 mls/min IV Q2H PRN PRN Reason: Anxiety/Agitation Stop: 08/03/25 12:20 Prochlorperazine 5 mg/ Syringe 5 mls @ 5 mls/min IV Q6H PRN PRN Reason: Nausea &/or Vomiting Stop: 08/03/25 12:20 Lorazepam (Lorazepam 0.5 Mg Tab) 0.5 mg SL Q2H PRN PRN Reason: Anxiety/Agitation Stop: 08/02/25 12:14 Melatonin (Melatonin 3 Mg Tab) 3 mg PO HS PRN PRN Reason: Sleep Stop: 08/02/25 04:52 Last Admin: 07/03/25 20:56 Dose: 3 mg Miconazole Nitrate (Miconazole Nitrate Powder 85 Gm) 1 appln EXT PRN PRN PRN Reason: Affected Skin Folds Stop: 08/02/25 08:04 Last Admin: 07/03/25 20:56 Dose: 1 appln Miscellaneous (Fentanyl Patch Remove & Waste) 1 each N/A Q3D@0859 [facility] Stop: 08/02/25 08:58 Last Admin: 07/03/25 08:21 Dose: 1 each Miscellaneous (Check Fentanyl Patch Placement) 1 each N/A QS [facility] Stop: 08/02/25 04:59 Last Admin: 07/04/25 08:06 Dose: 1 each Miscellaneous (Fentanyl 12mcg Patch Remove & Waste) 1 each N/A Q3D [facility] Stop: 08/02/25 12:14 Last Admin: 07/03/25 12:40 Dose: 1 each Miscellaneous (Check 12 Mcg Fentanyl Patch Placement) 1 each N/A QS [facility] Stop: 08/02/25 15:59 Last Admin: 07/04/25 08:06 Dose: 1 each Ondansetron HCl (Ondansetron Inj 2 Mg/Ml 2 Ml Vial) 4 mg IV Q6H PRN PRN Reason: Nausea Stop: 08/02/25 04:52 Oxycodone HCl (Oxycodone Hcl Ir 5 Mg Tab (Immediate Release)) 5 mg PO Q4H PRN PRN Reason: pain Stop: 07/17/25 04:52 Last Admin: 07/04/25 08:11 Dose: 5 mg Polyethylene Glycol (Polyethylene (Miralax) 17 Gm Pack) 17 gm PO BID PRN PRN Reason: Constipation Stop: 08/02/25 20:59 Sennosides (Senna 8.6 Mg Tab) 8.6 mg PO HS [facility] Stop: 08/02/25 20:59 Last Admin: 07/03/25 20:56 Dose: 8.6 mg Trazodone HCl (Trazodone Hcl 50 Mg Tab) 25 mg PO HS [facility] Stop: 08/02/25 20:59 Last Admin: 07/03/25 21:01 Dose: 25 mg PG Care Time/CCT Total # of Minutes Spent Total Time Spent with Patient: Total time spent is greater than 50% in coordination of care (as documented) at patient's floor/unit and/or counseling patient: Advanced Care Planning 83063 Advanced Care Planning 30 Min [place] [address] SUB INP/OBS CARE 3/50MIN Patient Type Established History Expanded Problem Focused Exam Expanded Problem Focused Medical Decision Making Moderate Complexity Diagnoses Cancer related pain G89.3 Delirium R41.0 Palliative care by specialist Z51.5 Counseling regarding goals of care Z71.89 Comfort measures only status Z51.5 Additional Codes Advanced Care Planning - 14247 Advanced Care Planning 30 Min: 47555 Advanced Care Planning 30 Min ([id number])
[2025-07-04 10:50] VITALS: BP 112/63; RESP 19; TEMP 97.7; O2SAT 92
--- NOTE | 2025-07-04 10:51 | Hospitalist Progress Note ---
Date of Service July 04, 2025 Assessment & Plan (1) Acute liver failure: (2) Hyponatremia: (3) Delirium due to hepatic encephalopathy: (4) Acute encephalopathy: (5) Pancreatic carcinoma metastatic to liver: Plan 64 y/o with recently diagnosed pancreatic cancer metastatic to the liver admitted with acute encephalopathy, hyponatremia, worsened jaundice Has been unable to sleep for days because of low back pain and discomfort, anxiety. Has sleep apnea but unable to tolerate CPAP - feels like it blows too hard when he's sitting up, but can't lie down Liver function has rapidly worsened with deterioration in bilirubin, INR, albumin, sodium, mental status. We have not identified an acute condition other than worsening liver metastases to explain this. Liver ultrasound 07/03 with extensive liver metastases, no biliary dilation and CBD normal size, therefore the dysfunction is hepatocellular rather than obstructive and not amenable to stenting. Prognosis is extremely poor. I discussed with Dr. Greco - he will not tolerate cancer directed-treatment because of severe liver dysfunction and comfort measures recommended. Discussed with palliative care and oncologist. JAYMIE Copeland and myself met with Sal's at bedside and made decision to transition to comfort measures. We also updated his daughter by phone - she plans to visit [facility] or tomorrow. # Comfort measures / symptom management - agitated delirium, cancer-related pain, insomnia - lorazepam 0.5 mg IV now for agitation/anxiety then IV/SL q2h PRN. With liver dysfunction expect doses will stack and decrease frequency once symptoms controlled - haloperidol 1 mg IV q6h PRN agitation/anxiety - continue fentanyl patch, prn oxycodone, prn hydromorphone IV for pain - glycopyrrolate PRN secretions - stopped medications not providing for treatment - inpatient hospice referral for uncontrolled agitated delirium requiring IV medications, cancer related pain # Acute hepatic failure due to extensive liver metastases -see above, MELD 3.0 is 30. Previous INR on xarelto was 1.2-1.4, stopped yest erday, so coagulopathy mostly not effect of DOAC # Acute toxic metabolic encephalopathy At least partially due to hyponatremia, also acute hepatic encephalopathy (even though ammonia wnl), hypercarbia was ruled out by vbg. -medication side effects are probably contributing but he is needing these to control cancer-related pain and other symptoms # Moderately severe hyponatremia - this is related to severe liver dysfunction -urine sodium was <10 recently which argues against SIADH, did not respond much to gentle volume challenge and is more edematous -128 today # Metastatic pancreatic cancer to the liver -Dr. Greco consulted -not a candidate for cancer-directed treatment because liver function too poor, comfort measures recommended # Cancer related pain and anxiety, severe insomnia see above # afib -held dronedarone and xarelto because of liver dysfunction, now stopped -metoprolol - resume if tachycardic and tolerating po # BAUTISTA - currently not tolerating CPAP. vbg 07/03 no hypercarbia # BPH - cont finasteride # DVT Prophylaxis: not indicated Medical Complexity: Medical decision making was complex, high risk for clinical deterioration morbidity, or mortality for this encounter. Unstable conditions include acute liver failure, acute metabolic encephalopathy, hyponatremia. New problems or diagnoses today include acute liver failure. Decision for transition to comfort measures Admission and Anticipated Discharge Date Admission Date: July 03, 2025 Subjective Mental status much worse this AM Muttering words and awake but incomprehensible Per nursing staff he has been restless and uncomfortable all yesterday evening and overnight. Now has 1:1 sitter because he is confused and getting up frequently Physical Exam Physical Exam: General Appearance: ill appearing and jaundiced, sitting up in recliner chair Vital signs: Reviewed past 24h vital signs in EMR HEENT: Sclerae icteric Respiratory: CTA madelin no rrw Cardiovascular: Normal heart rate. Reg rate and rhythm no mrg Skin: Warm and dry, no rash. Jaundiced Neurological: awake and oriented to hospital but not which one or why he is here, confused, asterixis present, falls asleep easily, sleep apneas Ext: bilateral LE edema 2+ feet and ankles - worsened . Results & Data Results & Data Vital Signs (Past 12 Hours) Vital Signs Temp Pulse Pulse Resp BP BP Pulse Ox 07/04/25 08:15 58 L 117/77 07/04/25 07:30 07/04/25 07:01 36.4 C L 53 L 20 101/67 93 07/04/25 04:53 07/04/25 02:39 36.6 C 56 L 18 121/69 91 07/03/25 23:51 07/03/25 23:04 36.7 C 69 17 127/78 92 O2 Del Method O2 Del Method 07/04/25 08:15 07/04/25 07:30 Room Air 07/04/25 07:01 Room Air 07/04/25 04:53 Room Air 07/04/25 02:39 Room Air 07/03/25 23:51 Room Air 07/03/25 23:04 Room Air Laboratory Results INR 2.6 Bili 12 W 14 Na 127 K 4.9 Cr 1 albumin 2.3 RUQ ultrasound - liver filled with tumor metastases, CBD 0.4 and no biliary dil atation PG Care Time/CCT Total # of Minutes Spent Total Time Spent with Patient: Total time spent is greater than 50% in coordination of care (as documented) at patient's floor/unit and/or counseling patient: Coding Level of Care Code 50719 SUB INP/OBS CARE 3/50MIN Diagnoses Acute liver failure K72.00 Hyponatremia E87.1 Delirium due to hepatic encephalopathy K76.82; F05 Acute encephalopathy G93.40 Pancreatic carcinoma metastatic to liver C25.9; C78.7
[2025-07-04 11:28] VITALS: PULSE 53
[2025-07-04] MEDS ORDERED: HALOPERIDOL LACTATE 5 MG/ML 1 ML VIAL IV PRN ×2 (11:49→12:09)
[2025-07-04] MEDS: LORAZEPAM IV STA (12:12)
[2025-07-04] MEDS ORDERED: ACETAMINOPHEN 325 MG TAB PO PRN (12:21)
[2025-07-04] MEDS ORDERED: ACETAMINOPHEN 650 MG SUPP PR PRN (12:21)
[2025-07-04] MEDS ORDERED: PROCHLORPERAZINE 5 MG in SYRINGE 4 ML IV PRN (12:21)
[2025-07-04] MEDS: HYDROmorphone INJ 0.5 MG/0.5 ML SYR IV PRN ×2 (13:04→17:04)
[2025-07-04] MEDS: LORazepam Inj 0.5 MG in SYRINGE 0.25 ML IV PRN (17:38)
[2025-07-04] MEDS ORDERED: POLYETHYLENE (MIRALAX) 17 GM PACK PO PRN (21:00)
[2025-07-05] MEDS: INFLUENZA VACC TS2025-26(65y+)/PF (IIV3) 0.5mL Syr IM ONE (00:08)
[2025-07-05] MEDS: LORazepam 0.5 MG TAB SL PRN (08:41)
--- NOTE | 2025-07-05 15:33 | Hospitalist Progress Note ---
Date of Service July 05, 2025 Assessment & Plan (1) Acute liver failure: (2) Hyponatremia: (3) Delirium due to hepatic encephalopathy: (4) Acute encephalopathy: (5) Pancreatic carcinoma metastatic to liver: Plan 64 y/o with recently diagnosed pancreatic cancer metastatic to the liver admitted with acute encephalopathy, hyponatremia, worsened jaundice Has been unable to sleep for days because of low back pain and discomfort, anxiety. Has sleep apnea but unable to tolerate CPAP - feels like it blows too hard when he's sitting up, but can't lie down Liver function has rapidly worsened with deterioration in bilirubin, INR, albumin, sodium, mental status. We did not identify an acute condition other than worsening liver metastases to explain this. Liver ultrasound 07/03 with extensive liver metastases, no biliary dilation and CBD normal size, therefore the dysfunction is hepatocellular rather than obstructive and not amenable to stenting. Not a candidate for cancer-directed treatment because of severe liver dysfunction. Transitioned to comfort measures 07/04. End of life care -continue PRN IV hydromorphone at current dose for pain, dyspnea -continue PRN IV lorazepam and haloperidol for agitated delirium -continue glycopyrrolate prn secretions -expect deepening of HE to coma over next 24-72h -updated family in room Diagnoses addressed this admission: # Acute hepatic failure due to extensive liver metastases # Acute toxic metabolic encephalopathy # acute hepatic encephalopathy # Moderately severe hyponatremia - this is related to severe liver dysfunction # Metastatic pancreatic cancer to the liver # Cancer related pain and anxiety, severe insomnia # afib # BAUTISTA # BPH Admission and Anticipated Discharge Date Admission Date: July 03, 2025 Subjective Has been intermittently restless and trying to get up Pain adequately controlled on hydromorphone - fairly infrequent dosing Confused and sleeping a lot, did brighten up and recognize his granddaughter Updated his , daughter, JONAH in room Physical Exam Physical Exam: GEN: ill appearing, sleeping in bed HEENT: moist MM RESP: normal WOB, CTAB. Deep even resp CV: reg no mrg ABD: soft/nt/nd +BT : gavin with low volume of brownish urine SKIN: warm and dry, no generalized rashes, severe jaundice NEURO: sleepy currently, confused/encephalopathic Results & Data Results & Data Vital Signs (Past 12 Hours) Vital Signs O2 Del Method 07/05/25 08:00 Room Air PG Care Time/CCT Total # of Minutes Spent Total Time Spent with Patient: Total time spent is greater than 50% in coordination of care (as documented) at patient's floor/unit and/or counseling patient: Coding Level of Care Code 39841 SUB INP/OBS CARE 2/35MIN Diagnoses Acute liver failure K72.00 Hyponatremia E87.1 Delirium due to hepatic encephalopathy K76.82; F05 Acute encephalopathy G93.40 Pancreatic carcinoma metastatic to liver C25.9; C78.7
[2025-07-05] MEDS: HYDROmorphone INJ 1 MG/ML SYRINGE IV PRN (21:41)
[2025-07-05] MEDS: diphenhydrAMINE 50 MG/ML VIAL IV STA (22:49)
[2025-07-06] MEDS ORDERED: STAT IV Infusion **Titration per Protocol STA (12:48)
[2025-07-06] MEDS: HYDROmorphone 100 MG/100 ML BAG IV SCH (13:12)
[2025-07-06] MEDS: HYDROmorphone BOLUS from BAG IV PRN (13:20)
[2025-07-06] MEDS: GLYCOPYRROLATE 0.2 MG/ML VIAL IV PRN (17:23)
--- NOTE | 2025-07-06 17:35 | Hospitalist Progress Note ---
Date of Service July 06, 2025 Assessment & Plan (1) Acute liver failure: (2) Hyponatremia: (3) Delirium due to hepatic encephalopathy: (4) Acute encephalopathy: (5) Pancreatic carcinoma metastatic to liver: Plan 64 y/o with recently diagnosed pancreatic cancer metastatic to the liver admitted with acute encephalopathy, hyponatremia, worsened jaundice Has been unable to sleep for days because of low back pain and discomfort, anxiety. Has sleep apnea but unable to tolerate CPAP - feels like it blows too hard when he's sitting up, but can't lie down Liver function has rapidly worsened with deterioration in bilirubin, INR, albumin, sodium, mental status. We did not identify an acute condition other than worsening liver metastases to explain this. Liver ultrasound 07/03 with extensive liver metastases, no biliary dilation and CBD normal size, therefore the dysfunction is hepatocellular rather than obstructive and not amenable to stenting. Not a candidate for cancer-directed treatment because of severe liver dysfunction. Transitioned to comfort measures 07/04. End of life care -continue IV hydromorphone for pain, dyspnea - requiring frequent/hourly doses - discussed with family and changed to hydromorphone drip -continue PRN IV lorazepam and haloperidol for agitated delirium - no doses last 24 since opioid relieves these symptoms (often associated with grimacing) as well the agitation/restlessness episodes are not manageable by po medications at this point, family does not feel that they would be able to keep him safe. I agree, continue inpatient care for [employer]. Was declined for inpatient hospice for unclear reason. -continue glycopyrrolate prn secretions -expect deepening of HE to coma over next 24-72h -hospice 365 visit was not satisfactory for family, discontinued -updated family in room with care coord Kristine 07/06 Diagnoses addressed this admission: # Acute hepatic failure due to extensive liver metastases # Acute toxic metabolic encephalopathy # acute hepatic encephalopathy # Moderately severe hyponatremia - this is related to severe liver dysfunction # Metastatic pancreatic cancer to the liver # Cancer related pain and anxiety, severe insomnia # afib # BAUTISTA # BPH High risk medications: continuous IV opioids Admission and Anticipated Discharge Date Admission Date: July 03, 2025 Subjective intermittently opens eyes and groans, not verbal today mostly lethargic sometimes very restless and grimacing had hourly hydromorphone IVP this AM Physical Exam Physical Exam: GEN: ill appearing, sleeping in bed, intermittently opens eyes or moves around HEENT: moist MM RESP: normal WOB, CTAB. Deep even resp CV: reg no mrg ABD: soft/nt/nd +BT : gavin with low volume of brownish urine SKIN: skin is cooler today, severe jaundice NEURO: very encephalopathic, sometimes restless and agitated, some grimacing, nonverbal at this time Results & Data Results & Data Vital Signs (Past 12 Hours) Vital Signs O2 Del Method 07/06/25 08:00 Room Air PG Care Time/CCT Total # of Minutes Spent Total Time Spent with Patient: Total time spent is greater than 50% in coordination of care (as documented) at patient's floor/unit and/or counseling patient: Coding Level of Care Code 00262 SUB INP/OBS CARE 3/50MIN Diagnoses Acute liver failure K72.00 Hyponatremia E87.1 Delirium due to hepatic encephalopathy K76.82; F05 Acute encephalopathy G93.40 Pancreatic carcinoma metastatic to liver C25.9; C78.7
--- NOTE | 2025-07-06 17:54 | Death Pronouncement Note ---
Date of Service July 06, 2025 Pronouncement Note Admission Date Admission Date: July 03, 2025 Date and Time of Date of : 07/06/25 Time of : 15:25 Contributing Factors (1) Acute liver failure: (2) Hyponatremia: (3) Delirium due to hepatic encephalopathy: (4) Acute encephalopathy: (5) Pancreatic carcinoma metastatic to liver: Summary Additional details: Mr. Chand while on comfort care for acute liver failure caused by metastatic pancreatic cancer. Additional Data Attending physician: Ira Szymanski MD
--- NOTE | 2025-07-06 17:55 | Discharge Summary ---
Discharge Summary Date of Service July 06, 2025 Principal Dx & Hospital Course #1 = Principal Diagnosis (1) Acute liver failure: (2) Hyponatremia: (3) Delirium due to hepatic encephalopathy: (4) Acute encephalopathy: (5) Pancreatic carcinoma metastatic to liver: Plan 64 y/o with recently diagnosed pancreatic cancer metastatic to the liver admitted with acute encephalopathy, hyponatremia, worsened jaundice Has been unable to sleep for days because of low back pain and discomfort, anxiety. Has sleep apnea but unable to tolerate CPAP - feels like it blows too hard when he's sitting up, but can't lie down Liver function has rapidly worsened with deterioration in bilirubin, INR, albumin, sodium, mental status. We did not identify an acute condition other than worsening liver metastases to explain this. Liver ultrasound 07/03 with extensive liver metastases, no biliary dilation and CBD normal size, therefore the dysfunction is hepatocellular rather than obstructive and not amenable to stenting. Not a candidate for cancer-directed treatment because of severe liver dysfunction. Transitioned to comfort measures 07/04. Mr. Chand peacefully two days later. 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 helps to provide the history. Patient reports that he has had an unfortunate past few weeks (6 weeks) regarding his recent diagnosis and array of different symptomatic complaints. Of most concern is that he has been unable to sleep for the past few weeks which has also been negatively impacting his , Sonia. He states that he has been having some hallucinations, thinking that he is seeing snakes and bears at times and speaking to people from his past when they are not there. He believes that this is mainly secondary to not sleeping hardly at all. States that whenever he is asleep in a bed, he normally cannot stay sleeping for long because he starts to get shoulder discomfort and back discomfort. Whenever he adjusts to try to find a different and more comfortable position, he is only able to stand up position for certain amount of time before he becomes uncomfortable again. He has some relief when sitting in a chair. Throughout the night whenever he is unable to sleep and he is awake, he tends to have some feelings of anxiety as he finds that his mind is racing because he cannot sleep. He also admits to his profound anorexia, being unable to tolerate almost anything by mouth because of his significantly decreased appetite. Overall, the patient is able to tell me most of the history. 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 At this time, the patient's main goal was to try to get to October 09 so that he is able to see his only granddaughter turned 2 years old. The patient and his Sonia explained that they have a good family system and support system, with multiple different family members involved in different aspects of medicine and in their spirituality. Again, the patient is most concerned with getting restful sleep, his getting restful sleep, and being able to spend time with his granddaughter as he is able to. The patient does have persistent abdominal discomfort, not stating that 1 area is hurting more than the other but just stated that this is very generalized. He does have nausea at times, but no vomiting. Patient admits to occasional feelings as though he is short of breath, but not at present. Patient is without any additional symptoms at this time to include chest pain, palpitations, numbness/tingling, fever/chills, URI symptoms, LUTS, weakness, syncope, or falls. Patient is requesting that the information be clearly laid out for him, possibly in a less like format so he is aware of what has been done and what has not been done as well as the results of such. ED evaluation reveals CBC with leukocytosis 17.05, H/H 12.1/36; CMP Na 125, Cl 94, glucose 151, bili 11.8, AST 157, ALT 116, Alk phos 830, albumin 2.4, globulin 5.1; ammonia 52; trop 19.5; TSH 1.460; head CT without acute findings.; Provided with 1L NSS in ED. Please see Dr. Amezcua's attestation for adjustments/additions to treatment plan. Discharge Plan Discharge Items Reason For Visit: CONFUSION, TRANSAMINITIS, PANCREATIC CA Condition on Discharge: Serious Follow-up/Referrals: Joshua Espino MD [Primary Care Provider] - Medications and DC Order Prescriptions: No Action finasteride 5 mg tablet 5 mg PO DAILY Qty: 90 3RF Xarelto 20 mg tablet 20 mg PO QPM Qty: 90 3RF Rx Instructions: must administer with evening meal Multaq 400 mg tablet 400 mg PO BID Qty: 180 3RF Rx Instructions: must administer with a meal/food famotidine 40 mg tablet 40 mg PO QAM Qty: 90 3RF esomeprazole magnesium 20 mg capsule,delayed release(DR/EC) 20 mg PO BID Qty: 180 1RF metoprolol succinate 25 mg tablet extended release 24 hr 25 mg PO QAM Qty: 90 3RF escitalopram oxalate 10 mg tablet 10 mg PO QAM Qty: 90 3RF Bioflex [id number] mg tablet 2 tab PO QAM fentanyl 25 mcg/hr Patch 72 Hour 1 patch transdermal Q3D Qty: 5 0RF sennosides [Senna Lax] 8.6 mg Tablet 8.6 mg PO HS Qty: 30 0RF polyethylene glycol 3350 [Miralax] 17 gram Powder In Packet 17 g PO BID Qty: 30 0RF oxycodone 5 mg Tablet 5 mg PO Q6H PRN (Reason: pain) Qty: 45 0RF Admission Data Admit Date/Time: 07/03/25 03:14 Attending Provider: Ira Szymanski Admit Provider: Everett Amezcua Primary Care Provider: Joshua Espino Other Providers: Everett Amezcua; Wilfrid Copeland Patricia A.; Judi Greco Hospital Stay Data Consultations 07/03/25 02:14 ED Decision to Admit Stat 07/03/25 04:53 Consult Palliative Care Routine 07/04/25 12:19 Consult Oncology Routine Diagnostic Imagining Performed 07/03/25 01:58 CT head/brain wo con Stat 07/03/25 16:48 US liver Routine Total Time Total Time Spent Total Time Spent (In Minutes): I personally spent: 55 minutes today on clinical care activities including: reviewing chart notes and vital signs discussion with floor care specialist examining the patient counseling the patient's family writing orders documentation Coding Level of Care Code 18426 INP/OBS DISCH >30 MIN Diagnoses Acute liver failure K72.00 Hyponatremia E87.1 Delirium due to hepatic encephalopathy K76.82; F05 Acute encephalopathy G93.40 Pancreatic carcinoma metastatic to liver C25.9; C78.7
--- NOTE | 2025-07-08 06:14 | Electrocardiogram Report ---
Test Reason : Blood Pressure : */* mmHG Vent. Rate : 89 BPM Atrial Rate : 89 BPM P-R Int : 200 ms QRS Dur : 78 ms QT Int : 350 ms P-R-T Axes : 48 -3 157 degrees QTcB Int : 425 ms Normal sinus rhythm Inferior infarct , age undetermined Cannot rule out Anterior infarct (cited on or before 20-Jun-2025) T wave abnormality, consider lateral ischemia Abnormal ECG When compared with ECG of 20-Jun-2025 10:00, No significant change Confirmed by Gianni Reid ([id number]) on 07/08/2025 6:14:07 AM Referred By: REFERRED SELF Confirmed By: Gianni Reid
== END 2025-07-06 20:30 | disposition expired | DRG 435 ==
LOC: SUATTDRO → ED 22:55 → 2S 07-03 03:14 → SUATTDRO 07-03 03:14 → 2S 07-03 04:38 → 3N 07-04 18:19